=== PATIENT | female | born 1940 | race Caucasian/White ===

== ENCOUNTER 2016-06-30 15:59 | Inpatient (IN) | payer MEDICARE, MEDICAID ==
[~2016-06-30] VITALS: Ht 165.1 cm; Wt 71.2 kg
[~2016-06-30 15:59] MED LIST: IPRA3AMP IH; METH5TAB70 PO; SERT25TA5 PO
[2016-06-30] MEDS ORDERED: ALBUTEROL FS 2.5 MG/3 ML VIAL.NEB ONE ×2 (16:18→19:27)
[2016-06-30] MEDS ORDERED: IPRATROPIUM NEB FS 0.5 MG/2.5 ML AMPUL.NEB ONE ×2 (16:18→19:27)
[2016-06-30] MEDS ORDERED: methylPREDNISolone SOD SUCC 125 MG/2ML VIAL ONE (16:30)
[2016-06-30] MEDS ORDERED: ALBUTEROL FS 2.5 MG/3 ML VIAL.NEB NEB ONE ×2 (16:30→20:00)
[2016-06-30] MEDS ORDERED: IPRATROPIUM NEB FS 0.5 MG/2.5 ML AMPUL.NEB NEB ONE ×2 (16:30→20:00)
[2016-06-30] MEDS ORDERED: methylPREDNISolone SOD SUCC 125 MG/2ML VIAL IV ONE (16:30)
[2016-06-30 16:40] LABS: BASOPHILS # (AUTO) 0.2 /CMM (0.0-0.2); DIFF TOTAL % 100 %; EOSINOPHILS % (AUTO) 0.2 % (0.0-6.0); HEMATOCRIT 32 % (33-45); HEMOGLOBIN 9.9 g/dL (11.5-14.8); LYMPHOCYTES # (AUTO) 1.5 /CMM (0.8-4.8); LYMPHOCYTES % (AUTO) 12.5 % (20.0-44.0); MEAN CORPUSCULAR HEMOGLOBIN 21 PG (26.0-33.0); MEAN CORPUSCULAR HGB CONC 31 g/dl (31.0-36.0); MEAN CORPUSCULAR VOLUME 68 fL (82-100); MONOCYTES # (AUTO) 0.8 /CMM (0.1-1.30); MONOCYTES % (AUTO) 6.8 % (2.0-12.0); NEUTROPHILS # (AUTO) 9.2 /CMM (1.8-8.9); NEUTROPHILS % (AUTO) 78.5 % (43.0-81.0); PLATELET COUNT (AUTO) 123 /CMM (150-450); RED BLOOD CELL COUNT(AUTO) 4.69 MIL/uL (4.0-5.2); WHITE BLOOD COUNT (AUTO) 11.7 K/uL (4.3-11.0)
[2016-06-30 16:56] LABS: ANION GAP 12 (5-14); CARBON DIOXIDE 27 mmol/L (21-32); CHLORIDE 104 mmol/L (98-107); CREATININE 1.4 mg/dL (0.6-1.3); GLUCOSE 206 mg/dL (74-106); POTASSIUM 5.8 mmol/L (3.5-5.1); SODIUM SERUM 137 mmol/L (136-145); UREA NITROGEN, BLOOD 30 mg/dL (7-18)
[2016-06-30 17:04] LABS: TROPONIN I < 0.017 ng/mL (0.00-0.056)
[2016-06-30 18:09] LABS: ALANINE AMINOTRANSFERASE 14 U/L (12-78); ALBUMIN 3.4 g/dL (3.4-5.0); ASPARTATE AMINOTRANSFERASE 15 U/L (15-37); BILIRUBIN,TOTAL 0.2 mg/dL (0.2-1.0); TOTAL PROTEIN, SERUM 6.9 g/dL (6.4-8.2)
[2016-06-30 18:20] LABS: INDIRECT BILIRUBIN 0.2 mg/dL (0.0-1.1)
[2016-06-30 18:52] LABS: LYMPHOCYTES % (MANUAL) 10 % (16-48)
[2016-06-30 18:54] LABS: HYPOCHROMASIA 1+; PLATELET ESTIMATE DECREASED
[2016-06-30 18:55] LABS: POIKILOCYTOSIS 1+
[2016-06-30] MEDS ORDERED: IV NS 0.9% 1,000 ML ONE (19:17)
[2016-06-30] MEDS ORDERED: IV SET PRIMARY 1 EA INFUS.SET MC ONE (19:17)
[2016-06-30] MEDS ORDERED: IV NS 0.9% 1,000 ML IV ONE (19:40)
[2016-06-30 20:00] VITALS: BP 153/73
[2016-06-30] MEDS ORDERED: ENOXAPARIN SODIUM 40 MG/0.4 ML DISP.SYRIN SQ ONE (21:30)
[2016-06-30] MEDS ORDERED: MORPHINE SULFATE INJ 2 MG/ML DISP.SYRIN IV PRN (21:30)
[2016-06-30] MEDS ORDERED: ENOXAPARIN SODIUM 40 MG/0.4 ML DISP.SYRIN SQ SCH (21:30)
[2016-06-30] MEDS ORDERED: ONDANSETRON HCL/PF 4 MG/2 ML VIAL IVP PRN (21:30)
[2016-06-30] MEDS ORDERED: ACETAMINOPHEN 325 MG TABLET PO PRN (21:30)
[2016-06-30] MEDS ORDERED: SECONDARY IV SET 1 EA INFUS.SET MC ONE (21:31)
[2016-06-30] MEDS ORDERED: IV D5W 50 ML IV ONE (21:31)
[2016-06-30] MEDS ORDERED: CEFTRIAXONE 1 G VIAL ONE (21:31)
[2016-06-30] MEDS ORDERED: MONTELUKAST SODIUM (10MG) 10 MG TABLET ONE (21:31)
[2016-06-30] MEDS: BLOOD SUGAR DIAGNOSTIC 1 EACH STRIP IN SCH (21:42)
[2016-06-30] MEDS: CEFTRIAXONE 1 G in IV D5W 50 ML IV SCH (21:43)
[2016-06-30] MEDS ORDERED: IV SET PRIMARY PUMP SET 1 EA INFUS.SET MC ONE (21:44)
[2016-06-30] MEDS: METHIMAZOLE (5MG) 5 MG TABLET PO SCH (21:53)
[2016-06-30] MEDS: MONTELUKAST SODIUM (10MG) 10 MG TABLET PO SCH (21:53)
[2016-06-30] MEDS: INSULIN REGULAR, HUMAN 100 UNIT/ML 3 ML VIAL SQ PRN (21:55)
[2016-06-30] MEDS ORDERED: INSULIN REGULAR, HUMAN 100 UNIT/ML 10 ML VIAL ONE (22:21)
[2016-07-01] VITALS: BP 147/60
[2016-07-01] MEDS ORDERED: IPRATROPIUM NEB FS 0.5 MG/2.5 ML AMPUL.NEB ONE (03:27)
[2016-07-01] MEDS ORDERED: ALBUTEROL FS 2.5 MG/0.5 ML VIAL.NEB ONE (03:27)
[2016-07-01] MEDS ORDERED: ALBUTEROL FS 2.5 MG/0.5 ML VIAL.NEB NEB PRN (03:30)
[2016-07-01] MEDS ORDERED: IPRATROPIUM NEB FS 0.5 MG/2.5 ML AMPUL.NEB NEB PRN (03:30)
[2016-07-01] MEDS ORDERED: INSU100V10 SQ (04:29)
[2016-07-01] MEDS ORDERED: BISA10SU8 RC (04:29)
[2016-07-01] MEDS ORDERED: CARV12.52 PO (04:29)
[2016-07-01] MEDS ORDERED: FERR-58 PO (04:29)
[2016-07-01] MEDS ORDERED: MAGN400O6 PO (04:29)
[2016-07-01] MEDS ORDERED: NA P133E RC (04:29)
[2016-07-01] MEDS ORDERED: VALS80TA26 PO (04:29)
[2016-07-01] MEDS ORDERED: RAMI10CA PO (04:29)
[2016-07-01] MEDS ORDERED: GABA-532 PO (04:29)
[2016-07-01] MEDS ORDERED: MAGN400O4 PO (04:29)
[2016-07-01] MEDS ORDERED: CRAN425C PO (04:29)
[2016-07-01] MEDS ORDERED: ACET-868 PO (04:29)
[2016-07-01] MEDS ORDERED: DOCU-25 PO (04:29)
[2016-07-01] MEDS: INSULIN REGULAR, HUMAN 100 UNIT/ML 3 ML VIAL SQ PRN ×3 (06:37→21:52)
[2016-07-01 07:19] LABS: DIFF TOTAL % 100 %; HEMATOCRIT 30 % (33-45); HEMOGLOBIN 9.1 g/dL (11.5-14.8); LYMPHOCYTES % (AUTO) 10.3 % (20.0-44.0); MEAN CORPUSCULAR HEMOGLOBIN 21 PG (26.0-33.0); MEAN CORPUSCULAR HGB CONC 31 g/dl (31.0-36.0); MEAN CORPUSCULAR VOLUME 69 fL (82-100); MONOCYTES # (AUTO) 0.2 /CMM (0.1-1.30); MONOCYTES % (AUTO) 1.8 % (2.0-12.0); NEUTROPHILS # (AUTO) 8.7 /CMM (1.8-8.9); NEUTROPHILS % (AUTO) 87.9 % (43.0-81.0); PLATELET COUNT (AUTO) 127 /CMM (150-450); RED BLOOD CELL COUNT(AUTO) 4.34 MIL/uL (4.0-5.2); RETICULOCYTE COUNT 0.3 % (0.6-2.5); WHITE BLOOD COUNT (AUTO) 9.9 K/uL (4.3-11.0)
[2016-07-01 07:38] LABS: THYROID STIMULATING HORMONE 0.408 uIU/mL (0.358-3.74)
[2016-07-01] MEDS: ALBUTEROL FS 2.5 MG/0.5 ML VIAL.NEB NEB SCH ×4 (07:42→20:06)
[2016-07-01] MEDS: IPRATROPIUM NEB FS 0.5 MG/2.5 ML AMPUL.NEB NEB SCH ×4 (07:42→20:05)
[2016-07-01 07:45] LABS: BILIRUBIN,TOTAL 0.1 mg/dL (0.2-1.0); CALCIUM, SERUM 7.8 mg/dL (8.5-10.1); CREATININE 1.4 mg/dL (0.6-1.3); PHOSPHORUS 4.2 mg/dL (2.5-4.9); POTASSIUM 5.5 mmol/L (3.5-5.1); TOTAL PROTEIN, SERUM 6.4 g/dL (6.4-8.2)
[2016-07-01 08:00] VITALS: BP 130/53
[2016-07-01] MEDS: SERTRALINE HCL 25 MG TABLET PO SCH (08:09)
[2016-07-01] MEDS: predniSONE 20 MG TABLET PO SCH (08:09)
[2016-07-01] MEDS: BLOOD SUGAR DIAGNOSTIC 1 EACH STRIP IN SCH ×4 (08:09→21:46)
[2016-07-01] MEDS: PANTOPRAZOLE 40 MG TABLET.DR PO SCH (08:09)
[2016-07-01] MEDS: FLUTICASONE/SALMETEROL DISKUS IH SCH ×2 (09:58→16:31)
[2016-07-01 10:15] LABS: BAND % (MANUAL) 3 % (0.0-5.0); LYMPHOCYTES % (MANUAL) 5 % (16-48)
[2016-07-01 10:16] LABS: HYPOCHROMASIA 2+; PLATELET ESTIMATE DECREASED
[2016-07-01 10:17] LABS: ANISOCYTOSIS 1+; MICROCYTOSIS 1+; POIKILOCYTOSIS 1+
[2016-07-01 12:00] VITALS: BP 139/61
[2016-07-01] MEDS: IV NS 0.9% 1,000 ML IV PRN (13:44)
[2016-07-01 16:00] VITALS: BP 129/53
[2016-07-01 20:32] VITALS: BP 141/57
[2016-07-01] MEDS: ENOXAPARIN SODIUM 30 MG/0.3 ML DISP.SYRIN SQ SCH (21:00)
[2016-07-01] MEDS ORDERED: METHIMAZOLE (5MG) 5 MG TABLET PO SCH (21:30)
[2016-07-01] MEDS: CEFTRIAXONE 1 G in IV D5W 50 ML IV SCH (21:36)
[2016-07-01] MEDS: MONTELUKAST SODIUM (10MG) 10 MG TABLET PO SCH (21:46)
[2016-07-01 22:00] VITALS: BP 141/57
[2016-07-02 00:42] VITALS: BP 145/70
[2016-07-02 04:42] VITALS: BP 157/70
[2016-07-02] MEDS: PANTOPRAZOLE 40 MG TABLET.DR PO SCH (06:55)
[2016-07-02] MEDS: BLOOD SUGAR DIAGNOSTIC 1 EACH STRIP IN SCH ×4 (06:55→21:15)
[2016-07-02 06:57] VITALS: BP 161/73
[2016-07-02] MEDS: ALBUTEROL FS 2.5 MG/0.5 ML VIAL.NEB NEB SCH ×4 (07:12→19:14)
[2016-07-02] MEDS: IPRATROPIUM NEB FS 0.5 MG/2.5 ML AMPUL.NEB NEB SCH ×4 (07:12→19:14)
[2016-07-02 07:42] LABS: CREATININE 1.5 mg/dL (0.6-1.3); PHOSPHORUS 3.6 mg/dL (2.5-4.9); POTASSIUM 4.8 mmol/L (3.5-5.1)
[2016-07-02 07:50] LABS: DIFF TOTAL % 100 %; EOSINOPHILS % (AUTO) 0.1 % (0.0-6.0); HEMATOCRIT 30 % (33-45); HEMOGLOBIN 9.2 g/dL (11.5-14.8); LYMPHOCYTES # (AUTO) 1.6 /CMM (0.8-4.8); LYMPHOCYTES % (AUTO) 12.8 % (20.0-44.0); MEAN CORPUSCULAR HEMOGLOBIN 21 PG (26.0-33.0); MEAN CORPUSCULAR HGB CONC 31 g/dl (31.0-36.0); MEAN CORPUSCULAR VOLUME 70 fL (82-100); MONOCYTES # (AUTO) 0.7 /CMM (0.1-1.30); NEUTROPHILS # (AUTO) 9.9 /CMM (1.8-8.9); NEUTROPHILS % (AUTO) 81.1 % (43.0-81.0); PLATELET COUNT (AUTO) 161 /CMM (150-450); RED BLOOD CELL COUNT(AUTO) 4.31 MIL/uL (4.0-5.2); WHITE BLOOD COUNT (AUTO) 12.2 K/uL (4.3-11.0)
[2016-07-02 08:00] VITALS: BP 161/73
[2016-07-02] MEDS: SERTRALINE HCL 25 MG TABLET PO SCH (08:33)
[2016-07-02] MEDS: RAMIPRIL 5 MG CAPSULE PO SCH (08:34)
[2016-07-02] MEDS: CARVEDILOL 12.5 MG TABLET PO SCH ×2 (08:34→16:44)
[2016-07-02] MEDS: DOCUSATE SODIUM 100 MG CAPSULE PO SCH (08:35)
[2016-07-02] MEDS: BISACODYL SUPP (10 MG) 10 MG/SUPP.RECT SUPP.RECT RC SCH ×2 (08:35→09:00)
[2016-07-02] MEDS: predniSONE 20 MG TABLET PO SCH (08:35)
[2016-07-02] MEDS: VALSARTAN 80 MG TABLET PO SCH (08:38)
[2016-07-02] MEDS: FLUTICASONE/SALMETEROL DISKUS IH SCH ×2 (09:00→16:46)
[2016-07-02 15:15] LABS: LYMPHOCYTES % (MANUAL) 17 % (16-48)
[2016-07-02 15:16] LABS: HYPOCHROMASIA 1+; PLATELET ESTIMATE ADEQUATE
[2016-07-02 16:00] VITALS: BP 161/64
[2016-07-02] MEDS: INSULIN REGULAR, HUMAN 100 UNIT/ML 3 ML VIAL SQ PRN ×2 (16:54→21:06)
[2016-07-02 20:00] VITALS: BP 151/58
[2016-07-02] MEDS: ENOXAPARIN SODIUM 30 MG/0.3 ML DISP.SYRIN SQ SCH (20:59)
[2016-07-02] MEDS: CEFTRIAXONE 1 G in IV D5W 50 ML IV SCH (21:01)
[2016-07-02] MEDS: MONTELUKAST SODIUM (10MG) 10 MG TABLET PO SCH (21:01)
[2016-07-02] MEDS: GABAPENTIN 100 MG CAPSULE PO SCH (21:01)
[2016-07-02] MEDS: METHIMAZOLE (5MG) 5 MG TABLET PO SCH (21:01)
[2016-07-02] MEDS: INSULIN DETEMIR 100 UNIT/ML CARTRIDGE SQ SCH (21:05)
[2016-07-02] MEDS: IV NS 0.9% 1,000 ML IV PRN (23:29)
[2016-07-03] MEDS: ZOLPIDEM TARTRATE 5 MG TABLET PO PRN (00:50)
[2016-07-03 04:55] VITALS: BP 126/73
[2016-07-03] MEDS: DEXTROSE 50%-WATER 50 ML DISP.SYRIN IV PRN (05:49)
[2016-07-03] MEDS: BLOOD SUGAR DIAGNOSTIC 1 EACH STRIP IN SCH ×4 (06:25→21:06)
[2016-07-03 07:20] LABS: BASOPHILS % (AUTO) 0.3 % (0.0-2.0); DIFF TOTAL % 100 %; EOSINOPHILS % (AUTO) 0.1 % (0.0-6.0); HEMATOCRIT 30 % (33-45); HEMOGLOBIN 9.1 g/dL (11.5-14.8); LYMPHOCYTES # (AUTO) 1.9 /CMM (0.8-4.8); LYMPHOCYTES % (AUTO) 23.4 % (20.0-44.0); MEAN CORPUSCULAR HEMOGLOBIN 21 PG (26.0-33.0); MEAN CORPUSCULAR HGB CONC 30 g/dl (31.0-36.0); MEAN CORPUSCULAR VOLUME 69 fL (82-100); MONOCYTES # (AUTO) 0.4 /CMM (0.1-1.30); MONOCYTES % (AUTO) 5.7 % (2.0-12.0); NEUTROPHILS # (AUTO) 5.6 /CMM (1.8-8.9); NEUTROPHILS % (AUTO) 70.5 % (43.0-81.0); PLATELET COUNT (AUTO) 132 /CMM (150-450); RED BLOOD CELL COUNT(AUTO) 4.31 MIL/uL (4.0-5.2); WHITE BLOOD COUNT (AUTO) 7.9 K/uL (4.3-11.0)
[2016-07-03 07:47] LABS: CALCIUM, SERUM 8.1 mg/dL (8.5-10.1); CREATININE 1.4 mg/dL (0.6-1.3); PHOSPHORUS 3.3 mg/dL (2.5-4.9); POTASSIUM 5.6 mmol/L (3.5-5.1)
[2016-07-03] MEDS: ALBUTEROL FS 2.5 MG/0.5 ML VIAL.NEB NEB SCH ×4 (07:49→20:02)
[2016-07-03] MEDS: IPRATROPIUM NEB FS 0.5 MG/2.5 ML AMPUL.NEB NEB SCH ×4 (07:49→20:01)
[2016-07-03 08:00] VITALS: BP 158/59
[2016-07-03] MEDS: RAMIPRIL 5 MG CAPSULE PO SCH ×2 (09:00→10:21)
[2016-07-03] MEDS: predniSONE 20 MG TABLET PO SCH (10:21)
[2016-07-03] MEDS: SERTRALINE HCL 25 MG TABLET PO SCH (10:21)
[2016-07-03] MEDS: BISACODYL SUPP (10 MG) 10 MG/SUPP.RECT SUPP.RECT RC SCH (10:21)
[2016-07-03] MEDS: DOCUSATE SODIUM 100 MG CAPSULE PO SCH (10:22)
[2016-07-03] MEDS: VALSARTAN 80 MG TABLET PO SCH (10:22)
[2016-07-03] MEDS: CARVEDILOL 12.5 MG TABLET PO SCH ×2 (10:23→16:59)
[2016-07-03] MEDS: PANTOPRAZOLE 40 MG TABLET.DR PO SCH (10:39)
[2016-07-03] MEDS: FLUTICASONE/SALMETEROL DISKUS IH SCH ×2 (10:39→16:59)
[2016-07-03] MEDS ORDERED: FUROSEMIDE 20 MG/2 ML VIAL IV ONE (11:30)
[2016-07-03] MEDS: hydrALAZINE HCL 50 MG TABLET PO SCH ×2 (12:53→17:00)
[2016-07-03] MEDS: NITROGLYCERIN 30 GM TUBE TP SCH ×2 (12:54→21:09)
[2016-07-03 15:50] VITALS: BP 154/57
[2016-07-03 16:00] VITALS: BP 152/57
[2016-07-03] MEDS: INSULIN REGULAR, HUMAN 100 UNIT/ML 3 ML VIAL SQ PRN ×2 (17:01→21:08)
[2016-07-03] MEDS ORDERED: SODIUM POLYSTYRENE SULFONATE 15 G/60 ML BOTTLE PO ONE (17:30)
[2016-07-03] MEDS: ENOXAPARIN SODIUM 30 MG/0.3 ML DISP.SYRIN SQ SCH (21:00)
[2016-07-03] MEDS: CEFTRIAXONE 1 G in IV D5W 50 ML IV SCH (21:06)
[2016-07-03] MEDS: GABAPENTIN 100 MG CAPSULE PO SCH (21:06)
[2016-07-03] MEDS: MONTELUKAST SODIUM (10MG) 10 MG TABLET PO SCH (21:07)
[2016-07-03] MEDS: METHIMAZOLE (5MG) 5 MG TABLET PO SCH (21:07)
[2016-07-03] MEDS: INSULIN DETEMIR 100 UNIT/ML CARTRIDGE SQ SCH (21:08)
[2016-07-04] MEDS: ZOLPIDEM TARTRATE 5 MG TABLET PO PRN (00:51)
[2016-07-04] MEDS: IV NS 0.9% 1,000 ML IV PRN ×2 (01:52→14:27)
[2016-07-04 07:51] LABS: BASOPHILS % (AUTO) 0.1 % (0.0-2.0); DIFF TOTAL % 100 %; EOSINOPHILS % (AUTO) 0.2 % (0.0-6.0); HEMATOCRIT 29 % (33-45); HEMOGLOBIN 8.8 g/dL (11.5-14.8); LYMPHOCYTES # (AUTO) 2.1 /CMM (0.8-4.8); LYMPHOCYTES % (AUTO) 26.9 % (20.0-44.0); MEAN CORPUSCULAR HEMOGLOBIN 21 PG (26.0-33.0); MEAN CORPUSCULAR HGB CONC 30 g/dl (31.0-36.0); MEAN CORPUSCULAR VOLUME 69 fL (82-100); MONOCYTES # (AUTO) 0.6 /CMM (0.1-1.30); MONOCYTES % (AUTO) 7.5 % (2.0-12.0); NEUTROPHILS % (AUTO) 65.3 % (43.0-81.0); PLATELET COUNT (AUTO) 173 /CMM (150-450); RED BLOOD CELL COUNT(AUTO) 4.22 MIL/uL (4.0-5.2); WHITE BLOOD COUNT (AUTO) 7.7 K/uL (4.3-11.0)
[2016-07-04 08:00] VITALS: BP 158/63
[2016-07-04] MEDS: ALBUTEROL FS 2.5 MG/0.5 ML VIAL.NEB NEB SCH ×4 (08:20→20:50)
[2016-07-04] MEDS: IPRATROPIUM NEB FS 0.5 MG/2.5 ML AMPUL.NEB NEB SCH ×4 (08:21→20:50)
[2016-07-04 08:25] LABS: BAND % (MANUAL) 2 % (0.0-5.0); LYMPHOCYTES % (MANUAL) 32 % (16-48)
[2016-07-04 08:26] LABS: ANISOCYTOSIS 3+; HYPOCHROMASIA 2+; MICROCYTOSIS 3+; PLATELET ESTIMATE ADEQUATE
[2016-07-04 08:27] LABS: OVALOCYTES 1+
[2016-07-04 09:08] LABS: ALBUMIN 2.8 g/dL (3.4-5.0); BILIRUBIN,TOTAL 0.1 mg/dL (0.2-1.0); CREATININE 1.3 mg/dL (0.6-1.3); PHOSPHORUS 3.4 mg/dL (2.5-4.9)
[2016-07-04] MEDS: SERTRALINE HCL 25 MG TABLET PO SCH (09:14)
[2016-07-04] MEDS: BLOOD SUGAR DIAGNOSTIC 1 EACH STRIP IN SCH ×4 (09:14→22:17)
[2016-07-04] MEDS: predniSONE 20 MG TABLET PO SCH (09:15)
[2016-07-04] MEDS: DOCUSATE SODIUM 100 MG CAPSULE PO SCH (09:15)
[2016-07-04] MEDS: BISACODYL SUPP (10 MG) 10 MG/SUPP.RECT SUPP.RECT RC SCH (09:15)
[2016-07-04] MEDS: CARVEDILOL 12.5 MG TABLET PO SCH ×2 (09:15→17:45)
[2016-07-04] MEDS: hydrALAZINE HCL 50 MG TABLET PO SCH ×3 (09:15→17:44)
[2016-07-04] MEDS: FLUTICASONE/SALMETEROL DISKUS IH SCH ×2 (09:17→17:47)
[2016-07-04] MEDS: PANTOPRAZOLE 40 MG TABLET.DR PO SCH (09:19)
[2016-07-04] MEDS: NITROGLYCERIN 30 GM TUBE TP SCH ×2 (09:19→21:28)
[2016-07-04] MEDS: Magnesium 1GM/D5W 100ML PREMIX 100 ML IV SCH ×2 (14:22→15:44)
[2016-07-04 16:00] VITALS: BP 158/71
[2016-07-04 17:00] VITALS: BP 158/71
[2016-07-04] MEDS ORDERED: ENOXAPARIN SODIUM 30 MG/0.3 ML DISP.SYRIN SQ SCH (17:00)
[2016-07-04] MEDS: INSULIN REGULAR, HUMAN 100 UNIT/ML 3 ML VIAL SQ PRN ×2 (17:43→22:22)
[2016-07-04] MEDS: FERROUS SULFATE (325 MG) 325 MG/TAB TABLET PO SCH (17:50)
[2016-07-04 20:00] VITALS: BP 143/65
[2016-07-04] MEDS: METHIMAZOLE (5MG) 5 MG TABLET PO SCH (21:31)
[2016-07-04] MEDS: MONTELUKAST SODIUM (10MG) 10 MG TABLET PO SCH (21:32)
[2016-07-04] MEDS: GABAPENTIN 100 MG CAPSULE PO SCH (21:33)
[2016-07-04] MEDS: CEFTRIAXONE 1 G in IV D5W 50 ML IV SCH (22:03)
[2016-07-04] MEDS: INSULIN DETEMIR 100 UNIT/ML CARTRIDGE SQ SCH (22:28)
[2016-07-05] MEDS: IV NS 0.9% 1,000 ML IV PRN (03:13)
[2016-07-05] MEDS: DEXTROSE 50%-WATER 50 ML DISP.SYRIN IV PRN (05:47)
[2016-07-05] MEDS: BLOOD SUGAR DIAGNOSTIC 1 EACH STRIP IN SCH ×2 (05:56→13:27)
[2016-07-05 08:00] VITALS: BP 146/56
[2016-07-05] MEDS: IPRATROPIUM NEB FS 0.5 MG/2.5 ML AMPUL.NEB NEB SCH ×3 (08:16→15:18)
[2016-07-05] MEDS: ALBUTEROL FS 2.5 MG/0.5 ML VIAL.NEB NEB SCH ×3 (08:16→15:18)
[2016-07-05] MEDS: hydrALAZINE HCL 50 MG TABLET PO SCH ×2 (09:43→13:34)
[2016-07-05] MEDS: DOCUSATE SODIUM 100 MG CAPSULE PO SCH (09:43)
[2016-07-05] MEDS: FERROUS SULFATE (325 MG) 325 MG/TAB TABLET PO SCH (09:43)
[2016-07-05] MEDS: PANTOPRAZOLE 40 MG TABLET.DR PO SCH (09:43)
[2016-07-05] MEDS: CARVEDILOL 12.5 MG TABLET PO SCH (09:43)
[2016-07-05] MEDS: predniSONE 20 MG TABLET PO SCH (09:44)
[2016-07-05] MEDS: SERTRALINE HCL 25 MG TABLET PO SCH (09:44)
[2016-07-05] MEDS: BISACODYL SUPP (10 MG) 10 MG/SUPP.RECT SUPP.RECT RC SCH (09:44)
[2016-07-05] MEDS: NITROGLYCERIN 30 GM TUBE TP SCH (09:44)
[2016-07-05] MEDS: FLUTICASONE/SALMETEROL DISKUS IH SCH (13:28)
[2016-07-05 13:34] VITALS: BP 166/63
== END 2016-07-05 16:00 | DRG 202 ==
LOC: ER 16:02 → TELE 19:59 → MED 07-02 09:43
PROVIDERS: ADMIT Nurse Practitioner Acute Care; ATTEND Nurse Practitioner Acute Care
PROC: 05H533Z Insertion of Infusion Device into Right Subclavian Vein, Percutaneous Approach (ICD-10-PCS; principal; 2016-07-03)
DX: J45.901 Unspecified asthma with (acute) exacerbation (principal); J18.9 Pneumonia, unspecified organism; J44.1 Chronic obstructive pulmonary disease with (acute) exacerbation; N17.9 Acute kidney failure, unspecified; I13.0 Hypertensive heart and chronic kidney disease with heart failure and stage 1 through stage 4 chronic kidney disease, or unspecified chronic kidney disease; J98.11 Atelectasis; E11.22 Type 2 diabetes mellitus with diabetic chronic kidney disease; D63.8 Anemia in other chronic diseases classified elsewhere; E11.65 Type 2 diabetes mellitus with hyperglycemia; I12.9 Hypertensive chronic kidney disease with stage 1 through stage 4 chronic kidney disease, or unspecified chronic kidney disease; N18.9 Chronic kidney disease, unspecified; F03.90 Unspecified dementia, unspecified severity, without behavioral disturbance, psychotic disturbance, mood disturbance, and anxiety; G62.9 Polyneuropathy, unspecified; E03.9 Hypothyroidism, unspecified; F32.9 Major depressive disorder, single episode, unspecified; E87.5 Hyperkalemia; D69.6 Thrombocytopenia, unspecified; I35.9 Nonrheumatic aortic valve disorder, unspecified; K59.09 Other constipation; E78.5 Hyperlipidemia, unspecified; D50.9 Iron deficiency anemia, unspecified; E83.42 Hypomagnesemia; E05.90 Thyrotoxicosis, unspecified without thyrotoxic crisis or storm; E11.21 Type 2 diabetes mellitus with diabetic nephropathy; E11.40 Type 2 diabetes mellitus with diabetic neuropathy, unspecified; I25.10 Atherosclerotic heart disease of native coronary artery without angina pectoris; Z79.4 Long term (current) use of insulin; I50.9 Heart failure, unspecified
CPT/HCPCS: 36415; 71010-TC; 80048-TC; 80053-TC; 80061-TC; 80076-TC; 82962-TC; 83540-TC; 83735-TC; 83880; 84100-TC; 84443-TC; 84484-TC; 85025-TC; 85045-TC; 87081-TC; 94799-TC; A4606; J0696; J1650; J1815; J1940; J2270; J2930; J3475; J7030; J7060; Z7610

== ENCOUNTER 2016-08-20 09:02 | Inpatient (IN) | payer MEDICARE, MEDICAID ==
[~2016-08-20] VITALS: Ht 167.6 cm; Wt 74.4 kg
[2016-08-20] VITALS (18 sets, daily range): BP systolic 74–127; BP diastolic 35–64
[~2016-08-20 09:02] MED LIST changes: +ACET-868 PO; +BISA10SU8 RC; +CARV12.52 PO; +CRAN425C PO; +DOCU-25 PO; +FERR-58 PO; +GABA-532 PO; +INSU100V10 SQ; +MAGN400O4 PO; +MAGN400O6 PO; +NA P133E RC; +RAMI10CA PO; +VALS80TA26 PO
[2016-08-20] MEDS ORDERED: ACETAMINOPHEN 650 MG/SUPP.RECT RC ONE ×2 (09:04→09:30)
[2016-08-20] MEDS ORDERED: IV SET PRIMARY 1 EA INFUS.SET MC ONE (09:18)
[2016-08-20] MEDS ORDERED: IV NS 0.9% 500 ML IV ONE (09:18)
[2016-08-20] MEDS ORDERED: IV NS 0.9% 500 ML BAG IV ONE (09:30)
[2016-08-20] MEDS ORDERED: ALBUTEROL FS 2.5 MG/3 ML VIAL.NEB ONE (09:41)
[2016-08-20] MEDS ORDERED: IPRATROPIUM NEB FS 0.5 MG/2.5 ML AMPUL.NEB ONE (09:41)
[2016-08-20] MEDS ORDERED: PIPERACILLIN /TAZOBACTAM 3.375 G in IV D5W 50 ML IV ONE (10:00)
[2016-08-20] MEDS ORDERED: ALBUTEROL FS 2.5 MG/3 ML VIAL.NEB NEB ONE (10:00)
[2016-08-20] MEDS ORDERED: IPRATROPIUM NEB FS 0.5 MG/2.5 ML AMPUL.NEB NEB ONE (10:00)
[2016-08-20] MEDS ORDERED: LEVOFLOXACIN 750 MG /D5W 150ML 150 ML IV ONE ×2 (10:00→10:15)
[2016-08-20 10:05] LABS: DIFF TOTAL % 100 %; EOSINOPHILS % (AUTO) 0.1 % (0.0-6.0); HEMATOCRIT 30 % (33-45); HEMOGLOBIN 8.6 g/dL (11.5-14.8); LYMPHOCYTES # (AUTO) 1.3 /CMM (0.8-4.8); LYMPHOCYTES % (AUTO) 10.5 % (20.0-44.0); MEAN CORPUSCULAR HEMOGLOBIN 20 PG (26.0-33.0); MEAN CORPUSCULAR HGB CONC 29 g/dl (31.0-36.0); MEAN CORPUSCULAR VOLUME 70 fL (82-100); MONOCYTES # (AUTO) 0.6 /CMM (0.1-1.30); MONOCYTES % (AUTO) 5.2 % (2.0-12.0); NEUTROPHILS # (AUTO) 10.4 /CMM (1.8-8.9); NEUTROPHILS % (AUTO) 84.2 % (43.0-81.0); PLATELET COUNT (AUTO) 124 /CMM (150-450); RED BLOOD CELL COUNT(AUTO) 4.23 MIL/uL (4.0-5.2); WHITE BLOOD COUNT (AUTO) 12.4 K/uL (4.3-11.0)
[2016-08-20] MEDS ORDERED: GABA-532 PO (10:09)
[2016-08-20] MEDS ORDERED: CLON0.1T PO (10:09)
[2016-08-20] MEDS ORDERED: MONT10TA22 PO (10:09)
[2016-08-20] MEDS ORDERED: FLUT1DIS3 INH (10:09)
[2016-08-20] MEDS ORDERED: MULT-213 PO (10:09)
[2016-08-20] MEDS ORDERED: OMEP20CA10 PO (10:09)
[2016-08-20] MEDS ORDERED: AMLO5TAB4 PO (10:09)
[2016-08-20] MEDS ORDERED: AMIN30LI2 PO (10:09)
[2016-08-20] MEDS ORDERED: IV SET PRIMARY PUMP SET 1 EA INFUS.SET MC ONE ×2 (10:15→14:22)
[2016-08-20 10:20] LABS: BAND % (MANUAL) 1 % (0.0-5.0); LYMPHOCYTES % (MANUAL) 11 % (16-48)
[2016-08-20 10:21] LABS: ANISOCYTOSIS 2+; HYPOCHROMASIA 1+; MICROCYTOSIS 2+; OVALOCYTES FEW; PLATELET ESTIMATE DECREASED
[2016-08-20 10:23] LABS: ANION GAP 10 (5-14); CALCIUM, SERUM 7.8 mg/dL (8.5-10.1); CARBON DIOXIDE 27 mmol/L (21-32); CHLORIDE 111 mmol/L (98-107); CREATININE 2.1 mg/dL (0.6-1.3); GLUCOSE 77 mg/dL (74-106); POTASSIUM 5.8 mmol/L (3.5-5.1); SODIUM SERUM 142 mmol/L (136-145); UREA NITROGEN, BLOOD 58 mg/dL (7-18)
[2016-08-20 10:25] LABS: INR 0.96 (0.87-1.13); PROTHROMBIN TIME 10.1 SECS (9.5-12.7)
[2016-08-20 10:28] LABS: ALANINE AMINOTRANSFERASE 15 U/L (12-78); ALBUMIN 2.8 g/dL (3.4-5.0); ASPARTATE AMINOTRANSFERASE 20 U/L (15-37); BILIRUBIN,DIRECT 0.1 mg/dL (0.0-0.2); BILIRUBIN,TOTAL 0.3 mg/dL (0.2-1.0); INDIRECT BILIRUBIN 0.2 mg/dL (0.0-1.1); TOTAL PROTEIN, SERUM 6.6 g/dL (6.4-8.2)
[2016-08-20 10:31] LABS: KETONES,URINE NEGATIVE (NEGATIVE)
[2016-08-20 10:31] LABS: TROPONIN I < 0.017 ng/mL (0.00-0.056)
[2016-08-20 10:32] LABS: ADD UA MICROSCOPIC YES; LEUKOCYTE ESTERASE ,URINE NEGATIVE (NEGATIVE)
[2016-08-20 10:33] LABS: ADD URINE CULTURE NO; WBC,URINE 0-2 /HPF (0-3)
[2016-08-20 10:34] LABS: LACTIC ACID 0.4 mmol/L (0.4-2.0)
[2016-08-20] MEDS ORDERED: FUROSEMIDE 20 MG/2 ML VIAL ONE (10:44)
[2016-08-20] MEDS ORDERED: methylPREDNISolone SOD SUCC 125 MG/2ML VIAL ONE (10:44)
[2016-08-20] MEDS ORDERED: methylPREDNISolone SOD SUCC 125 MG/2ML VIAL IV ONE (11:00)
[2016-08-20] MEDS ORDERED: FUROSEMIDE 20 MG/2 ML VIAL IV ONE (11:00)
[2016-08-20] MEDS ORDERED: ACETAMINOPHEN 650 MG/SUPP.RECT RC PRN (12:00)
[2016-08-20] MEDS ORDERED: ONDANSETRON HCL/PF 4 MG/2 ML VIAL IVP PRN ×2 (12:00→13:00)
[2016-08-20] MEDS ORDERED: ZOLPIDEM TARTRATE 5 MG TABLET PO PRN ×2 (12:00→22:00)
[2016-08-20] MEDS ORDERED: ENOXAPARIN SODIUM 40 MG/0.4 ML DISP.SYRIN SQ SCH ×2 (12:00→13:00)
[2016-08-20] MEDS ORDERED: MAGNESIUM HYDROXIDE 30 ML UDC PO PRN (13:00)
[2016-08-20] MEDS: METHIMAZOLE (5MG) 5 MG TABLET PO SCH (13:00)
[2016-08-20] MEDS ORDERED: HYDROCODONE/APAP 5/325MG 1 EACH TABLET PO PRN (13:00)
[2016-08-20] MEDS ORDERED: Medication Not On Formulary EA (Cranberry Extract (Cranberry) 425 MG) PO SCH (13:00)
[2016-08-20] MEDS ORDERED: MAG HYDROX/AL HYDROX/SIMETH 30 ML UDC PO PRN (13:00)
[2016-08-20] MEDS ORDERED: GABAPENTIN 100 MG CAPSULE PO SCH (13:00)
[2016-08-20] MEDS ORDERED: Z GUARD REMEDY 2 OZ OINT TP PRN (13:00)
[2016-08-20] MEDS: IV NS 0.9% 1,000 ML IV PRN (14:00)
[2016-08-20] MEDS ORDERED: ACETAMINOPHEN 325 MG TABLET PO PRN (14:00)
[2016-08-20] MEDS ORDERED: FEE PK DOSING 1 MIN EA MC ONE (14:05)
[2016-08-20] MEDS: ENOXAPARIN SODIUM 30 MG/0.3 ML DISP.SYRIN SQ SCH (15:03)
[2016-08-20] MEDS ORDERED: PIPERACILLIN /TAZOBACTAM 2.25 G in IV D5W 50 ML IV SCH (16:00)
[2016-08-20] MEDS ORDERED: SECONDARY IV SET 1 EA INFUS.SET MC ONE (16:12)
[2016-08-20] MEDS: CARVEDILOL 12.5 MG TABLET PO SCH (16:13)
[2016-08-20] MEDS: FERROUS SULFATE (325 MG) 325 MG/TAB TABLET PO SCH (16:13)
[2016-08-20] MEDS: methylPREDNISolone SOD SUCC 40 MG/ML VIAL IV SCH (16:18)
[2016-08-20] MEDS: ALBUTEROL HALF STRENGTH 1.25 MG/3 ML VIAL.NEB NEB SCH ×2 (17:00→23:30)
[2016-08-20] MEDS: PIPERACILLIN /TAZOBACTAM 2.25 G in IV D5W 50 ML IV SCH ×2 (17:13→23:56)
[2016-08-20] MEDS: VANCOMYCIN 0.75 GM in IV D5W 250 ML IV SCH (17:14)
[2016-08-20] MEDS: IPRATROPIUM NEB FS 0.5 MG/2.5 ML AMPUL.NEB NEB SCH ×2 (19:30→23:30)
[2016-08-20] MEDS: GABAPENTIN 100 MG CAPSULE PO SCH (21:37)
[2016-08-20] MEDS: INSULIN DETEMIR 100 UNIT/ML CARTRIDGE SQ SCH (21:51)
[2016-08-21] VITALS (20 sets, daily range): BP systolic 83–142; BP diastolic 34–79
[2016-08-21] MEDS: IPRATROPIUM NEB FS 0.5 MG/2.5 ML AMPUL.NEB NEB SCH ×6 (03:30→23:33)
[2016-08-21] MEDS: ALBUTEROL HALF STRENGTH 1.25 MG/3 ML VIAL.NEB NEB SCH ×6 (03:30→23:33)
[2016-08-21 04:45] LABS: BASOPHILS % (AUTO) 0.1 % (0.0-2.0); DIFF TOTAL % 100 %; HEMATOCRIT 28 % (33-45); HEMOGLOBIN 8.2 g/dL (11.5-14.8); LYMPHOCYTES # (AUTO) 0.7 /CMM (0.8-4.8); LYMPHOCYTES % (AUTO) 10.5 % (20.0-44.0); MEAN CORPUSCULAR HEMOGLOBIN 20 PG (26.0-33.0); MEAN CORPUSCULAR HGB CONC 29 g/dl (31.0-36.0); MEAN CORPUSCULAR VOLUME 70 fL (82-100); MONOCYTES # (AUTO) 0.1 /CMM (0.1-1.30); MONOCYTES % (AUTO) 1.2 % (2.0-12.0); NEUTROPHILS # (AUTO) 5.7 /CMM (1.8-8.9); NEUTROPHILS % (AUTO) 88.2 % (43.0-81.0); PLATELET COUNT (AUTO) 124 /CMM (150-450); RED BLOOD CELL COUNT(AUTO) 4.07 MIL/uL (4.0-5.2); WHITE BLOOD COUNT (AUTO) 6.5 K/uL (4.3-11.0)
[2016-08-21 04:52] LABS: ALBUMIN 2.4 g/dL (3.4-5.0); BILIRUBIN,TOTAL 0.2 mg/dL (0.2-1.0); CREATININE 2.5 mg/dL (0.6-1.3); PHOSPHORUS 6.6 mg/dL (2.5-4.9); POTASSIUM 6.1 mmol/L (3.5-5.1); TOTAL PROTEIN, SERUM 6.1 g/dL (6.4-8.2)
[2016-08-21 05:16] LABS: ANISOCYTOSIS 1+; BAND % (MANUAL) 1 % (0.0-5.0); HYPOCHROMASIA 2+; LYMPHOCYTES % (MANUAL) 8 % (16-48); PLATELET ESTIMATE DECREASED
[2016-08-21] MEDS: PIPERACILLIN /TAZOBACTAM 2.25 G in IV D5W 50 ML IV SCH ×4 (05:47→23:46)
[2016-08-21] MEDS: IV NS 0.9% 1,000 ML IV PRN (06:16)
[2016-08-21] MEDS ORDERED: PANTOPRAZOLE 40 MG TABLET.DR PO SCH (07:30)
[2016-08-21] MEDS: CARVEDILOL 12.5 MG TABLET PO SCH ×2 (09:00→16:27)
[2016-08-21] MEDS ORDERED: RAMIPRIL 5 MG CAPSULE PO SCH (09:00)
[2016-08-21] MEDS: AMLODIPINE BESYLATE 5 MG TABLET PO SCH (09:00)
[2016-08-21] MEDS: PROSOURCE / PROSTAT (PYXIS) 30 ML UDC PO SCH (09:03)
[2016-08-21] MEDS: FERROUS SULFATE (325 MG) 325 MG/TAB TABLET PO SCH ×2 (09:03→16:29)
[2016-08-21] MEDS: BISACODYL SUPP (10 MG) 10 MG/SUPP.RECT SUPP.RECT RC SCH (09:03)
[2016-08-21] MEDS: PANTOPRAZOLE 40 MG VIAL IV SCH (09:03)
[2016-08-21] MEDS: methylPREDNISolone SOD SUCC 40 MG/ML VIAL IV SCH ×3 (09:03→16:29)
[2016-08-21] MEDS: DOCUSATE SODIUM 100 MG CAPSULE PO SCH (09:03)
[2016-08-21 09:04] LABS: ABG BASE EXCESS -2.2 mmol/L; ABG HCO3 27.5 mmol/L; ABG PCO2 80.9 mmHg (35.0-45.0); ABG PO2 76.3 mmHg (75.0-100.0); ABG TOTAL HEMOGLOBIN 9.3 G/dL (12.0-16.0); ALLEN TEST Pass; AaDO2 225.9 mmHg; O2Hb 91.1 % (94.0-97.0)
[2016-08-21 09:04] LABS: ABG BASE EXCESS -3.1 mmol/L; ABG HCO3 25.5 mmol/L; ABG PCO2 69.3 mmHg (35.0-45.0); ABG PH 7.184 (7.350-7.450); ABG PO2 53.7 mmHg (75.0-100.0); ABG TOTAL HEMOGLOBIN 8.4 G/dL (12.0-16.0); ALLEN TEST Pass; AaDO2 151.8 mmHg; O2Hb 83.2 % (94.0-97.0)
[2016-08-21] MEDS: ENOXAPARIN SODIUM 30 MG/0.3 ML DISP.SYRIN SQ SCH (09:05)
[2016-08-21] MEDS ORDERED: DEXTROSE 50%-WATER 50 ML DISP.SYRIN IV PRN (12:30)
[2016-08-21] MEDS: METHIMAZOLE (5MG) 5 MG TABLET PO SCH (13:19)
[2016-08-21] MEDS ORDERED: FUROSEMIDE 40 MG/4 ML VIAL IV ONE (14:00)
[2016-08-21] MEDS ORDERED: SODIUM POLYSTYRENE SULFONATE 15 G/60 ML BOTTLE PO ONE (14:00)
[2016-08-21] MEDS: VANCOMYCIN 0.75 GM in IV D5W 250 ML IV SCH (14:31)
[2016-08-21] MEDS: BLOOD SUGAR DIAGNOSTIC 1 EACH STRIP IN SCH ×2 (17:16→21:53)
[2016-08-21] MEDS: INSULIN REGULAR, HUMAN 100 UNIT/ML 3 ML VIAL SQ PRN ×2 (17:17→21:56)
[2016-08-21 19:31] LABS: CREATININE, URINE 15.8 MG/DL (30.0-125.0)
[2016-08-21] MEDS: HEPARIN SODIUM, PORCINE 5000 UNITS/1 ML VIAL SQ SCH (21:00)
[2016-08-21] MEDS: GABAPENTIN 100 MG CAPSULE PO SCH (21:53)
[2016-08-21] MEDS: INSULIN DETEMIR 100 UNIT/ML CARTRIDGE SQ SCH (21:56)
[2016-08-22] VITALS (7 sets, daily range): BP systolic 101–148; BP diastolic 46–66
[2016-08-22] MEDS ORDERED: GUAIFENESIN/CODEINE 10 ML UDC PO PRN (01:30)
[2016-08-22] MEDS: IPRATROPIUM NEB FS 0.5 MG/2.5 ML AMPUL.NEB NEB SCH ×6 (03:33→23:29)
[2016-08-22] MEDS: ALBUTEROL HALF STRENGTH 1.25 MG/3 ML VIAL.NEB NEB SCH ×6 (03:33→23:29)
[2016-08-22] MEDS: PIPERACILLIN /TAZOBACTAM 2.25 G in IV D5W 50 ML IV SCH ×3 (05:16→17:22)
[2016-08-22] MEDS: BLOOD SUGAR DIAGNOSTIC 1 EACH STRIP IN SCH ×4 (06:32→22:14)
[2016-08-22] MEDS: INSULIN REGULAR, HUMAN 100 UNIT/ML 3 ML VIAL SQ PRN ×4 (06:36→22:10)
[2016-08-22] MEDS: methylPREDNISolone SOD SUCC 40 MG/ML VIAL IV SCH ×3 (08:20→16:35)
[2016-08-22] MEDS: PANTOPRAZOLE 40 MG VIAL IV SCH (08:20)
[2016-08-22] MEDS: PROSOURCE / PROSTAT (PYXIS) 30 ML UDC PO SCH (08:21)
[2016-08-22] MEDS: CARVEDILOL 12.5 MG TABLET PO SCH ×2 (08:21→17:00)
[2016-08-22] MEDS: AMLODIPINE BESYLATE 5 MG TABLET PO SCH (08:21)
[2016-08-22] MEDS: HEPARIN SODIUM, PORCINE 5000 UNITS/1 ML VIAL SQ SCH (08:25)
[2016-08-22] MEDS: FERROUS SULFATE (325 MG) 325 MG/TAB TABLET PO SCH ×2 (08:29→16:35)
[2016-08-22] MEDS: DOCUSATE SODIUM 100 MG CAPSULE PO SCH (08:29)
[2016-08-22] MEDS: BISACODYL SUPP (10 MG) 10 MG/SUPP.RECT SUPP.RECT RC SCH (09:00)
[2016-08-22 10:37] LABS: ABG BASE EXCESS 0.7 mmol/L; ABG HCO3 27.9 mmol/L; ABG PCO2 59.6 mmHg (35.0-45.0); ABG PH 7.288 (7.350-7.450); ABG TOTAL HEMOGLOBIN 8.8 G/dL (12.0-16.0); ALLEN TEST Pass; AaDO2 99.4 mmHg; O2Hb 87.4 % (94.0-97.0)
[2016-08-22 11:40] LABS: CALCIUM, SERUM 7.6 mg/dL (8.5-10.1); CREATININE 2.6 mg/dL (0.6-1.3); PHOSPHORUS 4.5 mg/dL (2.5-4.9); POTASSIUM 4.6 mmol/L (3.5-5.1)
[2016-08-22 11:48] LABS: DIFF TOTAL % 100 %; HEMATOCRIT 27 % (33-45); LYMPHOCYTES # (AUTO) 0.4 /CMM (0.8-4.8); LYMPHOCYTES % (AUTO) 3.9 % (20.0-44.0); MEAN CORPUSCULAR HEMOGLOBIN 20 PG (26.0-33.0); MEAN CORPUSCULAR HGB CONC 29 g/dl (31.0-36.0); MEAN CORPUSCULAR VOLUME 69 fL (82-100); MONOCYTES # (AUTO) 0.4 /CMM (0.1-1.30); MONOCYTES % (AUTO) 3.6 % (2.0-12.0); NEUTROPHILS # (AUTO) 10.6 /CMM (1.8-8.9); NEUTROPHILS % (AUTO) 92.5 % (43.0-81.0); PLATELET COUNT (AUTO) 140 /CMM (150-450); RED BLOOD CELL COUNT(AUTO) 3.93 MIL/uL (4.0-5.2); WHITE BLOOD COUNT (AUTO) 11.5 K/uL (4.3-11.0)
[2016-08-22 12:04] LABS: LYMPHOCYTES % (MANUAL) 5 % (16-48)
[2016-08-22 12:05] LABS: ANISOCYTOSIS 1+; HYPOCHROMASIA 1+; PLATELET ESTIMATE DECREASED
[2016-08-22] MEDS: METHIMAZOLE (5MG) 5 MG TABLET PO SCH (12:27)
[2016-08-22] MEDS: VANCOMYCIN 0.75 GM in IV D5W 250 ML IV SCH (15:01)
[2016-08-22 18:08] LABS: ABG BASE EXCESS 2.3 mmol/L; ABG HCO3 28.9 mmol/L; ABG NOTIFIED BY AS RRT; ABG PCO2 56.4 mmHg (35.0-45.0); ABG PH 7.327 (7.350-7.450); ABG PO2 58.3 mmHg (75.0-100.0); ABG TOTAL HEMOGLOBIN 8.9 G/dL (12.0-16.0); ALLEN TEST Pass; AaDO2 89.3 mmHg
[2016-08-22] MEDS: INSULIN DETEMIR 100 UNIT/ML CARTRIDGE SQ SCH (22:11)
[2016-08-22] MEDS: GABAPENTIN 100 MG CAPSULE PO SCH (22:13)
[2016-08-23] VITALS: BP 142/64
[2016-08-23] MEDS: PIPERACILLIN /TAZOBACTAM 2.25 G in IV D5W 50 ML IV SCH ×4 (00:23→18:12)
[2016-08-23] MEDS: HEPARIN SODIUM, PORCINE 5000 UNITS/1 ML VIAL SQ SCH ×3 (00:25→21:26)
[2016-08-23] MEDS: IPRATROPIUM NEB FS 0.5 MG/2.5 ML AMPUL.NEB NEB SCH ×6 (03:31→23:29)
[2016-08-23] MEDS: ALBUTEROL HALF STRENGTH 1.25 MG/3 ML VIAL.NEB NEB SCH ×6 (03:31→23:29)
[2016-08-23] MEDS: INSULIN REGULAR, HUMAN 100 UNIT/ML 3 ML VIAL SQ PRN ×3 (06:54→18:29)
[2016-08-23] MEDS: BLOOD SUGAR DIAGNOSTIC 1 EACH STRIP IN SCH (07:02)
[2016-08-23 07:58] LABS: CALCIUM, SERUM 7.9 mg/dL (8.5-10.1); CREATININE 1.9 mg/dL (0.6-1.3); POTASSIUM 4.3 mmol/L (3.5-5.1)
[2016-08-23 08:00] VITALS: BP_SYST 120; BP_SYST 127; BP_DIAS 58; BP_DIAS 60
[2016-08-23] MEDS: DOCUSATE SODIUM 100 MG CAPSULE PO SCH (08:35)
[2016-08-23] MEDS: BISACODYL SUPP (10 MG) 10 MG/SUPP.RECT SUPP.RECT RC SCH (08:36)
[2016-08-23] MEDS: CARVEDILOL 12.5 MG TABLET PO SCH ×2 (08:36→18:13)
[2016-08-23] MEDS: FERROUS SULFATE (325 MG) 325 MG/TAB TABLET PO SCH ×2 (08:36→18:12)
[2016-08-23] MEDS: AMLODIPINE BESYLATE 5 MG TABLET PO SCH (08:37)
[2016-08-23] MEDS: methylPREDNISolone SOD SUCC 40 MG/ML VIAL IV SCH ×3 (08:37→18:12)
[2016-08-23] MEDS: PANTOPRAZOLE 40 MG VIAL IV SCH (08:37)
[2016-08-23] MEDS: PROSOURCE / PROSTAT (PYXIS) 30 ML UDC PO SCH (08:37)
[2016-08-23 08:43] LABS: DIFF TOTAL % 100 %; EOSINOPHILS % (AUTO) 0.5 % (0.0-6.0); HEMATOCRIT 28 % (33-45); HEMOGLOBIN 8.2 g/dL (11.5-14.8); LYMPHOCYTES # (AUTO) 0.8 /CMM (0.8-4.8); LYMPHOCYTES % (AUTO) 9.3 % (20.0-44.0); MEAN CORPUSCULAR HEMOGLOBIN 21 PG (26.0-33.0); MEAN CORPUSCULAR HGB CONC 30 g/dl (31.0-36.0); MEAN CORPUSCULAR VOLUME 69 fL (82-100); MONOCYTES # (AUTO) 0.6 /CMM (0.1-1.30); MONOCYTES % (AUTO) 7.2 % (2.0-12.0); NEUTROPHILS # (AUTO) 7.4 /CMM (1.8-8.9); PLATELET COUNT (AUTO) 165 /CMM (150-450); RED BLOOD CELL COUNT(AUTO) 3.98 MIL/uL (4.0-5.2); WHITE BLOOD COUNT (AUTO) 8.9 K/uL (4.3-11.0)
[2016-08-23 10:05] LABS: BAND % (MANUAL) 1 % (0.0-5.0); LYMPHOCYTES % (MANUAL) 14 % (16-48)
[2016-08-23 10:06] LABS: HYPOCHROMASIA 1+; PLATELET ESTIMATE ADEQUATE
[2016-08-23] MEDS ORDERED: DEXTROSE 50%-WATER 50 ML DISP.SYRIN IV PRN (11:30)
[2016-08-23 12:00] VITALS: BP 128/63
[2016-08-23] MEDS ORDERED: BLOOD SUGAR DIAGNOSTIC 1 EACH STRIP VI SCH (12:00)
[2016-08-23] MEDS: METHIMAZOLE (5MG) 5 MG TABLET PO SCH (12:03)
[2016-08-23] MEDS ORDERED: VANCOMYCIN 1 GM in IV D5W 250 ML IV SCH ×2 (14:00→15:00)
[2016-08-23 16:00] VITALS: BP 132/61
[2016-08-23] MEDS: BLOOD SUGAR DIAGNOSTIC 1 EACH STRIP VI SCH ×2 (18:14→21:41)
[2016-08-23 20:00] VITALS: BP 149/75
[2016-08-23] MEDS: GABAPENTIN 100 MG CAPSULE PO SCH (21:25)
[2016-08-23] MEDS: *INSULIN REGULAR(HUMULIN R)HUM 100 UNIT/ML VIAL SQ PRN (21:42)
[2016-08-23] MEDS: INSULIN DETEMIR 100 UNIT/ML CARTRIDGE SQ SCH (21:54)
[2016-08-24] MEDS: ALBUTEROL HALF STRENGTH 1.25 MG/3 ML VIAL.NEB NEB SCH ×4 (03:17→15:46)
[2016-08-24] MEDS: IPRATROPIUM NEB FS 0.5 MG/2.5 ML AMPUL.NEB NEB SCH ×4 (03:17→15:45)
[2016-08-24 04:40] VITALS: BP 162/71
[2016-08-24] MEDS: PIPERACILLIN /TAZOBACTAM 2.25 G in IV D5W 50 ML IV SCH ×4 (05:18→11:34)
[2016-08-24] MEDS: BLOOD SUGAR DIAGNOSTIC 1 EACH STRIP VI SCH ×2 (06:37→11:56)
[2016-08-24] MEDS: *INSULIN REGULAR(HUMULIN R)HUM 100 UNIT/ML VIAL SQ PRN (06:38)
[2016-08-24 07:52] LABS: HEMATOCRIT 29 % (33-45); HEMOGLOBIN 8.7 g/dL (11.5-14.8); MEAN CORPUSCULAR HEMOGLOBIN 20 PG (26.0-33.0); MEAN CORPUSCULAR HGB CONC 30 g/dl (31.0-36.0); MEAN CORPUSCULAR VOLUME 68 fL (82-100); PLATELET COUNT (AUTO) 157 /CMM (150-450); RED BLOOD CELL COUNT(AUTO) 4.27 MIL/uL (4.0-5.2); WHITE BLOOD COUNT (AUTO) 10.7 K/uL (4.3-11.0)
[2016-08-24 08:00] VITALS: BP_SYST 155; BP_DIAS 61; BP_DIAS 63
[2016-08-24 08:02] LABS: CALCIUM, SERUM 8.4 mg/dL (8.5-10.1); CREATININE 1.6 mg/dL (0.6-1.3); POTASSIUM 4.4 mmol/L (3.5-5.1)
[2016-08-24] MEDS: DOCUSATE SODIUM 100 MG CAPSULE PO SCH (08:29)
[2016-08-24] MEDS: PANTOPRAZOLE 40 MG VIAL IV SCH (08:29)
[2016-08-24] MEDS: PROSOURCE / PROSTAT (PYXIS) 30 ML UDC PO SCH (08:29)
[2016-08-24] MEDS: methylPREDNISolone SOD SUCC 40 MG/ML VIAL IV SCH ×2 (08:30→12:57)
[2016-08-24] MEDS: FERROUS SULFATE (325 MG) 325 MG/TAB TABLET PO SCH (08:30)
[2016-08-24] MEDS: AMLODIPINE BESYLATE 5 MG TABLET PO SCH (08:30)
[2016-08-24] MEDS: CARVEDILOL 12.5 MG TABLET PO SCH (08:30)
[2016-08-24] MEDS: HEPARIN SODIUM, PORCINE 5000 UNITS/1 ML VIAL SQ SCH (08:31)
[2016-08-24] MEDS: BISACODYL SUPP (10 MG) 10 MG/SUPP.RECT SUPP.RECT RC SCH (08:31)
[2016-08-24 09:33] LABS: LYMPHOCYTES % (MANUAL) 10 % (16-48); MICROCYTOSIS 1+; PLATELET ESTIMATE DECREASED
[2016-08-24 09:34] LABS: HYPOCHROMASIA 1+; OVALOCYTES 1+
[2016-08-24] MEDS: INSULIN REGULAR, HUMAN 100 UNIT/ML 3 ML VIAL SQ PRN (11:57)
[2016-08-24] MEDS: METHIMAZOLE (5MG) 5 MG TABLET PO SCH (12:57)
[2016-08-24] MEDS ORDERED: LEVO500T15 PO (13:16)
[2016-08-24] MEDS ORDERED: PRED20TA PO (13:24)
[2016-08-24 16:00] VITALS: BP 153/84
[2016-08-26] MEDS ORDERED: METHIMAZOLE (5MG) 5 MG TABLET PO SCH (13:00)
== END 2016-08-24 16:15 | DRG 871 ==
LOC: ER 09:04 → ICU 10:51 → MED 08-21 17:41 → TELE 08-21 20:40 → MED 08-23 08:47
PROVIDERS: ADMIT Internal Medicine; ATTEND Internal Medicine
PROC: 5A09357 Assistance with Respiratory Ventilation, Less than 24 Consecutive Hours, Continuous Positive Airway Pressure (ICD-10-PCS; principal; 2016-08-20)
DX: A41.9 Sepsis, unspecified organism (principal); J15.6 Pneumonia due to other Gram-negative bacteria; I50.33 Acute on chronic diastolic (congestive) heart failure; N17.0 Acute kidney failure with tubular necrosis; J96.22 Acute and chronic respiratory failure with hypercapnia; J96.21 Acute and chronic respiratory failure with hypoxia; G93.40 Encephalopathy, unspecified; J44.1 Chronic obstructive pulmonary disease with (acute) exacerbation; E44.0 Moderate protein-calorie malnutrition; I13.0 Hypertensive heart and chronic kidney disease with heart failure and stage 1 through stage 4 chronic kidney disease, or unspecified chronic kidney disease; J98.11 Atelectasis; N39.0 Urinary tract infection, site not specified; J44.0 Chronic obstructive pulmonary disease with (acute) lower respiratory infection; D63.8 Anemia in other chronic diseases classified elsewhere; E11.22 Type 2 diabetes mellitus with diabetic chronic kidney disease; E87.5 Hyperkalemia; E03.9 Hypothyroidism, unspecified; E87.8 Other disorders of electrolyte and fluid balance, not elsewhere classified; I25.10 Atherosclerotic heart disease of native coronary artery without angina pectoris; N18.9 Chronic kidney disease, unspecified; E88.09 Other disorders of plasma-protein metabolism, not elsewhere classified; F03.90 Unspecified dementia, unspecified severity, without behavioral disturbance, psychotic disturbance, mood disturbance, and anxiety; B96.1 Klebsiella pneumoniae [K. pneumoniae] as the cause of diseases classified elsewhere; E11.40 Type 2 diabetes mellitus with diabetic neuropathy, unspecified; Z68.26 Body mass index [BMI] 26.0-26.9, adult
CPT/HCPCS: 36415; 36600; 71010-TC; 80048-TC; 80053-TC; 80061-TC; 80076-TC; 80202-TC; 81000-TC; 82570-TC; 82803-TC; 82962-TC; 83605-TC; 83735-TC; 84100-TC; 84300-TC; 84484-TC; 85025-TC; 85730-TC; 87040-TC; 87081-TC; 87086-TC; 87186-TC; 87400; 94799-TC; 97001-TC; A4606; C9113; J1644; J1650; J1815; J1940; J1956; J2543; J2920; J2930; J3370; J7030; J7040; J7060; Z7610

== ENCOUNTER 2016-09-09 06:15 | Inpatient (IN) | payer MEDICARE, MEDICAID ==
[2016-09-09] VITALS (19 sets, daily range): BP systolic 88–210; BP diastolic 35–103
[~2016-09-09] VITALS: Ht 157.5 cm; Wt 77.6 kg
[~2016-09-09 06:15] MED LIST changes: +AMIN30LI2 PO; +AMLO5TAB4 PO; +CLON0.1T PO; +FLUT1DIS3 INH; -IPRA3AMP IH; +LEVO500T15 PO; -MAGN400O6 PO; +MONT10TA22 PO; +MULT-213 PO; +OMEP20CA10 PO; +PRED20TA PO; -RAMI10CA PO; -SERT25TA5 PO; -VALS80TA26 PO
[2016-09-09] MEDS ORDERED: ALBUTEROL FS 2.5 MG/3 ML VIAL.NEB ONE (06:22)
[2016-09-09] MEDS ORDERED: IPRATROPIUM NEB FS 0.5 MG/2.5 ML AMPUL.NEB ONE (06:22)
[2016-09-09] MEDS ORDERED: methylPREDNISolone SOD SUCC 125 MG/2ML VIAL ONE (06:25)
[2016-09-09] MEDS ORDERED: IPRATROPIUM NEB FS 0.5 MG/2.5 ML AMPUL.NEB NEB ONE (06:30)
[2016-09-09] MEDS ORDERED: methylPREDNISolone SOD SUCC 125 MG/2ML VIAL IV ONE (06:30)
[2016-09-09] MEDS ORDERED: ALBUTEROL FS 2.5 MG/3 ML VIAL.NEB CONTNEB ONE (06:30)
[2016-09-09 07:14] LABS: BASOPHILS # (AUTO) 0.1 /CMM (0.0-0.2); BASOPHILS % (AUTO) 0.3 % (0.0-2.0); EOSINOPHILS # (AUTO) 0.1 /CMM (0.0-0.7); EOSINOPHILS % (AUTO) 0.4 % (0.0-6.0); HEMATOCRIT 33 % (33-45); HEMOGLOBIN 9.6 g/dL (11.5-14.8); LYMPHOCYTES # (AUTO) 2.2 /CMM (0.8-4.8); LYMPHOCYTES % (AUTO) 15.1 % (20.0-44.0); MEAN CORPUSCULAR HEMOGLOBIN 20 PG (26.0-33.0); MEAN CORPUSCULAR HGB CONC 29 g/dl (31.0-36.0); MEAN CORPUSCULAR VOLUME 70 fL (82-100); MONOCYTES # (AUTO) 0.4 /CMM (0.1-1.30); MONOCYTES % (AUTO) 2.5 % (2.0-12.0); NEUTROPHILS % (AUTO) 81.7 % (43.0-81.0); PLATELET COUNT (AUTO) 205 /CMM (150-450); RED BLOOD CELL COUNT(AUTO) 4.74 MIL/uL (4.0-5.2); WHITE BLOOD COUNT (AUTO) 14.6 K/uL (4.3-11.0)
[2016-09-09 07:25] LABS: CALCIUM, SERUM 8.7 mg/dL (8.5-10.1); CARBON DIOXIDE 32 mmol/L (21-32); CHLORIDE 110 mmol/L (98-107); CREATININE 1.2 mg/dL (0.6-1.3); GLUCOSE 116 mg/dL (74-106); POTASSIUM 4.9 mmol/L (3.5-5.1); SODIUM SERUM 143 mmol/L (136-145); UREA NITROGEN, BLOOD 25 mg/dL (7-18)
[2016-09-09 07:29] LABS: TROPONIN I < 0.017 ng/mL (0.00-0.056)
[2016-09-09 07:35] LABS: ALANINE AMINOTRANSFERASE 17 U/L (12-78); ALBUMIN 2.9 g/dL (3.4-5.0); ALKALINE PHOSPHATASE 69 U/L (46-116); ASPARTATE AMINOTRANSFERASE 15 U/L (15-37); B-TYPE NATRIURETIC PEPTIDE 293 PG/ML (0-125); BILIRUBIN,TOTAL 0.3 mg/dL (0.2-1.0)
[2016-09-09] MEDS ORDERED: FUROSEMIDE 40 MG/4 ML VIAL ONE (08:24)
[2016-09-09] MEDS ORDERED: FUROSEMIDE 40 MG/4 ML VIAL IV ONE (08:30)
[2016-09-09 09:29] LABS: ABG BASE EXCESS -0.8 mmol/L; ABG OXYGEN SATURATION 95.1 % (92.0-98.5); ABG PCO2 78.7 mmHg (35.0-45.0); ABG PH 7.183 (7.350-7.450); ABG PO2 95.5 mmHg (75.0-100.0); ABG TOTAL HEMOGLOBIN 10.8 G/dL (12.0-16.0); AaDO2 245.7 mmHg; MetHb 0.5 % (0.0-1.5); O2Hb 93.7 % (94.0-97.0); SITE, ABG Left Radial; VENT MODE, BG ST 15/5
[2016-09-09] MEDS ORDERED: LEVOFLOXACIN 500 MG /D5W 100ML 100 ML IV SCH (11:30)
[2016-09-09] MEDS ORDERED: IPRATROPIUM NEB FS 0.5 MG/2.5 ML AMPUL.NEB NEB SCH (11:30)
[2016-09-09] MEDS ORDERED: SECONDARY IV SET 1 EA INFUS.SET MC ONE (12:28)
[2016-09-09] MEDS ORDERED: IV NS 0.9% 250 ML IV ONE (12:28)
[2016-09-09] MEDS ORDERED: Z GUARD REMEDY 2 OZ OINT TP PRN ×2 (12:30→13:30)
[2016-09-09] MEDS: methylPREDNISolone SOD SUCC 125 MG/2ML VIAL IV SCH ×2 (12:42→21:32)
[2016-09-09] MEDS: ENOXAPARIN SODIUM 40 MG/0.4 ML DISP.SYRIN SQ SCH (12:52)
[2016-09-09] MEDS ORDERED: DEXTROSE 50%-WATER 50 ML DISP.SYRIN IV PRN ×3 (13:00→18:30)
[2016-09-09] MEDS ORDERED: BLOOD SUGAR DIAGNOSTIC 1 EACH STRIP VI SCH (13:00)
[2016-09-09] MEDS ORDERED: *INSULIN REGULAR(HUMULIN R)HUM 100 UNIT/ML VIAL SQ PRN (13:00)
[2016-09-09] MEDS ORDERED: LEVOFLOXACIN 500 MG /D5W 100ML 500 MG in PREMIX 1 EA IV ONE (13:00)
[2016-09-09] MEDS ORDERED: INSULIN REGULAR, HUMAN 100 UNIT/ML 3 ML VIAL SQ PRN ×2 (13:00→13:30)
[2016-09-09] MEDS ORDERED: MAGNESIUM HYDROXIDE 30 ML UDC PO PRN (13:30)
[2016-09-09] MEDS ORDERED: ACETAMINOPHEN 325 MG TABLET PO PRN (13:30)
[2016-09-09] MEDS ORDERED: NA PHOS,M-B/NA PHOS,DI-BA 1 EA ENEMA RC PRN (13:30)
[2016-09-09] MEDS ORDERED: ONDANSETRON HCL/PF 4 MG/2 ML VIAL IVP PRN (13:30)
[2016-09-09] MEDS ORDERED: CLONIDINE HCL 0.1 MG TABLET PO PRN (13:30)
[2016-09-09] MEDS ORDERED: METHIMAZOLE (5MG) 5 MG TABLET PO SCH (13:36)
[2016-09-09] MEDS: IPRATROPIUM NEB FS 0.5 MG/2.5 ML AMPUL.NEB NEB SCH ×2 (15:00→19:30)
[2016-09-09] MEDS ORDERED: ALBUTEROL HALF STRENGTH 1.25 MG/3 ML VIAL.NEB NEB SCH (15:30)
[2016-09-09] MEDS: FERROUS SULFATE (325 MG) 325 MG/TAB TABLET PO SCH (16:04)
[2016-09-09] MEDS: CARVEDILOL 12.5 MG TABLET PO SCH (16:04)
[2016-09-09] MEDS: FLUTICASONE/SALMETEROL DISKUS IH SCH (16:04)
[2016-09-09] MEDS ORDERED: methylPREDNISolone SOD SUCC 125 MG/2ML VIAL IV SCH (17:00)
[2016-09-09] MEDS ORDERED: BLOOD SUGAR DIAGNOSTIC 1 EACH STRIP IN SCH (17:30)
[2016-09-09] MEDS: ALBUTEROL FS 2.5 MG/3 ML VIAL.NEB NEB SCH (19:30)
[2016-09-09] MEDS: MONTELUKAST SODIUM (10MG) 10 MG TABLET PO SCH (21:32)
[2016-09-09] MEDS: GABAPENTIN 100 MG CAPSULE PO SCH (21:32)
[2016-09-09] MEDS: *INSULIN REGULAR(HUMULIN R)HUM 100 UNIT/ML VIAL SQ PRN (21:36)
[2016-09-09] MEDS: INSULIN DETEMIR 100 UNIT/ML CARTRIDGE SQ SCH (21:36)
[2016-09-09] MEDS: BLOOD SUGAR DIAGNOSTIC 1 EACH STRIP VI SCH (21:37)
[2016-09-09] MEDS ORDERED: GABAPENTIN 100 MG CAPSULE PO SCH (22:00)
[2016-09-10] VITALS (24 sets, daily range): BP systolic 100–160; BP diastolic 34–90
[2016-09-10] MEDS: ALBUTEROL FS 2.5 MG/3 ML VIAL.NEB NEB SCH ×5 (01:30→20:33)
[2016-09-10 04:42] LABS: HEMATOCRIT 28 % (33-45); HEMOGLOBIN 8.1 g/dL (11.5-14.8); LYMPHOCYTES # (AUTO) 0.7 /CMM (0.8-4.8); LYMPHOCYTES % (AUTO) 4.9 % (20.0-44.0); MEAN CORPUSCULAR HEMOGLOBIN 20 PG (26.0-33.0); MEAN CORPUSCULAR HGB CONC 29 g/dl (31.0-36.0); MEAN CORPUSCULAR VOLUME 69 fL (82-100); MONOCYTES # (AUTO) 0.1 /CMM (0.1-1.30); NEUTROPHILS # (AUTO) 13.3 /CMM (1.8-8.9); NEUTROPHILS % (AUTO) 94.1 % (43.0-81.0); PLATELET COUNT (AUTO) 163 /CMM (150-450); RDW COEFFICIENT OF VARIATION 16.9 (11.5-15.0); RED BLOOD CELL COUNT(AUTO) 4.07 MIL/uL (4.0-5.2); WHITE BLOOD COUNT (AUTO) 14.2 K/uL (4.3-11.0)
[2016-09-10 04:56] LABS: ALBUMIN 2.4 g/dL (3.4-5.0); BILIRUBIN,TOTAL 0.2 mg/dL (0.2-1.0); CALCIUM, SERUM 8.2 mg/dL (8.5-10.1); CREATININE 1.6 mg/dL (0.6-1.3); MAGNESIUM 1.5 mg/dL (1.8-2.4); PHOSPHORUS 3.7 mg/dL (2.5-4.9); POTASSIUM 5.6 mmol/L (3.5-5.1)
[2016-09-10] MEDS: methylPREDNISolone SOD SUCC 125 MG/2ML VIAL IV SCH ×3 (05:00→16:35)
[2016-09-10 06:03] LABS: ANISOCYTOSIS 1+; BASOPHILS % (MANUAL) 0 % (0.0-2.0); EOSINOPHILS % (MANUAL) 0 % (0-4); HYPOCHROMASIA 2+; LYMPHOCYTES % (MANUAL) 3 % (16-48); MONOCYTES % (MANUAL) 1 % (0-11.0); NEUTROPHILS % (MANUAL) 96 (42-76); PLATELET ESTIMATE ADEQUATE
[2016-09-10] MEDS: IPRATROPIUM NEB FS 0.5 MG/2.5 ML AMPUL.NEB NEB SCH ×4 (07:09→20:33)
[2016-09-10] MEDS: BLOOD SUGAR DIAGNOSTIC 1 EACH STRIP VI SCH ×4 (08:04→21:09)
[2016-09-10] MEDS: AMLODIPINE BESYLATE 5 MG TABLET PO SCH (08:05)
[2016-09-10] MEDS: CARVEDILOL 12.5 MG TABLET PO SCH ×2 (08:05→16:00)
[2016-09-10] MEDS: DOCUSATE SODIUM 100 MG CAPSULE PO SCH (08:05)
[2016-09-10] MEDS: FERROUS SULFATE (325 MG) 325 MG/TAB TABLET PO SCH ×2 (08:05→16:00)
[2016-09-10] MEDS: FLUTICASONE/SALMETEROL DISKUS IH SCH ×2 (08:05→16:00)
[2016-09-10] MEDS: METHIMAZOLE (5MG) 5 MG TABLET PO SCH (08:06)
[2016-09-10] MEDS: ENOXAPARIN SODIUM 40 MG/0.4 ML DISP.SYRIN SQ SCH (08:07)
[2016-09-10] MEDS: INSULIN REGULAR, HUMAN 100 UNIT/ML 3 ML VIAL SQ PRN ×4 (08:07→21:07)
[2016-09-10] MEDS ORDERED: SODIUM POLYSTYRENE SULFONATE 15 G/60 ML BOTTLE PO ONE (08:30)
[2016-09-10] MEDS ORDERED: BISACODYL SUPP (10 MG) 10 MG/SUPP.RECT SUPP.RECT RC PRN (09:00)
[2016-09-10] MEDS ORDERED: BISACODYL SUPP (10 MG) 10 MG/SUPP.RECT SUPP.RECT RC SCH (09:00)
[2016-09-10] MEDS ORDERED: Magnesium 1GM/D5W 100ML PREMIX 100 ML IV SCH (11:58)
[2016-09-10] MEDS ORDERED: SECONDARY IV SET 1 EA INFUS.SET MC ONE (12:00)
[2016-09-10] MEDS: LEVOFLOXACIN 250 MG /D5W 50 ML 250 MG in PREMIX 1 EA IV SCH (13:27)
[2016-09-10 18:02] LABS: THYROID STIMULATING HORMONE 0.626 uIU/mL (0.358-3.74)
[2016-09-10] MEDS: GABAPENTIN 100 MG CAPSULE PO SCH (21:06)
[2016-09-10] MEDS: MONTELUKAST SODIUM (10MG) 10 MG TABLET PO SCH (21:06)
[2016-09-10] MEDS: INSULIN DETEMIR 100 UNIT/ML CARTRIDGE SQ SCH (21:07)
[2016-09-11] VITALS (19 sets, daily range): BP systolic 114–169; BP diastolic 44–99
[2016-09-11] MEDS: ALBUTEROL FS 2.5 MG/3 ML VIAL.NEB NEB SCH ×4 (01:22→20:21)
[2016-09-11 04:43] LABS: HEMATOCRIT 26 % (33-45); HEMOGLOBIN 7.9 g/dL (11.5-14.8); LYMPHOCYTES # (AUTO) 0.7 /CMM (0.8-4.8); LYMPHOCYTES % (AUTO) 6.3 % (20.0-44.0); MEAN CORPUSCULAR HEMOGLOBIN 20 PG (26.0-33.0); MEAN CORPUSCULAR HGB CONC 30 g/dl (31.0-36.0); MEAN CORPUSCULAR VOLUME 68 fL (82-100); MONOCYTES # (AUTO) 0.3 /CMM (0.1-1.30); MONOCYTES % (AUTO) 2.6 % (2.0-12.0); NEUTROPHILS # (AUTO) 10.6 /CMM (1.8-8.9); NEUTROPHILS % (AUTO) 91.1 % (43.0-81.0); PLATELET COUNT (AUTO) 151 /CMM (150-450); RDW COEFFICIENT OF VARIATION 17.3 (11.5-15.0); WHITE BLOOD COUNT (AUTO) 11.6 K/uL (4.3-11.0)
[2016-09-11 04:48] LABS: CREATININE 1.6 mg/dL (0.6-1.3); MAGNESIUM 1.9 mg/dL (1.8-2.4); PHOSPHORUS 3.8 mg/dL (2.5-4.9); POTASSIUM 3.8 mmol/L (3.5-5.1)
[2016-09-11 05:26] LABS: LYMPHOCYTES % (MANUAL) 7 % (16-48); MONOCYTES % (MANUAL) 2 % (0-11.0); NEUTROPHILS % (MANUAL) 91 (42-76)
[2016-09-11 05:27] LABS: PLATELET ESTIMATE DECREASED
[2016-09-11 05:28] LABS: ANISOCYTOSIS 2+; HYPOCHROMASIA 2+
[2016-09-11] MEDS: IPRATROPIUM NEB FS 0.5 MG/2.5 ML AMPUL.NEB NEB SCH ×3 (07:35→20:21)
[2016-09-11] MEDS: BLOOD SUGAR DIAGNOSTIC 1 EACH STRIP VI SCH ×4 (08:19→21:28)
[2016-09-11] MEDS: methylPREDNISolone SOD SUCC 125 MG/2ML VIAL IV SCH (08:28)
[2016-09-11] MEDS: DOCUSATE SODIUM 100 MG CAPSULE PO SCH (08:29)
[2016-09-11] MEDS: FERROUS SULFATE (325 MG) 325 MG/TAB TABLET PO SCH ×2 (08:29→16:29)
[2016-09-11] MEDS: CARVEDILOL 12.5 MG TABLET PO SCH ×2 (08:29→16:33)
[2016-09-11] MEDS: AMLODIPINE BESYLATE 5 MG TABLET PO SCH (08:29)
[2016-09-11] MEDS: ENOXAPARIN SODIUM 40 MG/0.4 ML DISP.SYRIN SQ SCH (08:31)
[2016-09-11] MEDS: FLUTICASONE/SALMETEROL DISKUS IH SCH ×2 (08:31→16:32)
[2016-09-11] MEDS: METHIMAZOLE (5MG) 5 MG TABLET PO SCH (08:31)
[2016-09-11] MEDS: INSULIN REGULAR, HUMAN 100 UNIT/ML 3 ML VIAL SQ PRN ×2 (12:44→17:03)
[2016-09-11] MEDS ORDERED: IV SET PRIMARY PUMP SET 1 EA INFUS.SET MC ONE (13:35)
[2016-09-11] MEDS ORDERED: IV NS 0.9% 250 ML IV ONE (13:35)
[2016-09-11] MEDS ORDERED: SECONDARY IV SET 1 EA INFUS.SET MC ONE (13:35)
[2016-09-11] MEDS: LEVOFLOXACIN 250 MG /D5W 50 ML 250 MG in PREMIX 1 EA IV SCH (13:43)
[2016-09-11] MEDS: GABAPENTIN 100 MG CAPSULE PO SCH (21:19)
[2016-09-11] MEDS: INSULIN DETEMIR 100 UNIT/ML CARTRIDGE SQ SCH (21:25)
[2016-09-11] MEDS: *INSULIN REGULAR(HUMULIN R)HUM 100 UNIT/ML VIAL SQ PRN (21:27)
[2016-09-11] MEDS: MONTELUKAST SODIUM (10MG) 10 MG TABLET PO SCH (21:30)
[2016-09-12] VITALS: BP 163/46
[2016-09-12] MEDS: ALBUTEROL FS 2.5 MG/3 ML VIAL.NEB NEB SCH ×4 (01:48→19:59)
[2016-09-12 04:00] VITALS: BP 157/48
[2016-09-12 07:00] LABS: HEMATOCRIT 29 % (33-45); HEMOGLOBIN 8.8 g/dL (11.5-14.8); MEAN CORPUSCULAR HEMOGLOBIN 21 PG (26.0-33.0); MEAN CORPUSCULAR HGB CONC 30 g/dl (31.0-36.0); MEAN CORPUSCULAR VOLUME 70 fL (82-100); PLATELET COUNT (AUTO) 143 /CMM (150-450); RDW COEFFICIENT OF VARIATION 16.9 (11.5-15.0); RED BLOOD CELL COUNT(AUTO) 4.16 MIL/uL (4.0-5.2); WHITE BLOOD COUNT (AUTO) 10.3 K/uL (4.3-11.0)
[2016-09-12] MEDS: BLOOD SUGAR DIAGNOSTIC 1 EACH STRIP VI SCH ×4 (07:30→21:54)
[2016-09-12 07:32] LABS: CALCIUM, SERUM 8.1 mg/dL (8.5-10.1); CREATININE 1.3 mg/dL (0.6-1.3); POTASSIUM 3.4 mmol/L (3.5-5.1)
[2016-09-12 08:00] VITALS: BP 166/67
[2016-09-12] MEDS: IPRATROPIUM NEB FS 0.5 MG/2.5 ML AMPUL.NEB NEB SCH ×3 (08:07→19:59)
[2016-09-12] MEDS: predniSONE 20 MG TABLET PO SCH (08:59)
[2016-09-12] MEDS: FERROUS SULFATE (325 MG) 325 MG/TAB TABLET PO SCH ×2 (08:59→17:28)
[2016-09-12] MEDS: CARVEDILOL 12.5 MG TABLET PO SCH ×2 (09:00→17:28)
[2016-09-12] MEDS: FLUTICASONE/SALMETEROL DISKUS IH SCH ×2 (09:00→17:29)
[2016-09-12] MEDS ORDERED: predniSONE 20 MG TABLET PO SCH (09:00)
[2016-09-12] MEDS: DOCUSATE SODIUM 100 MG CAPSULE PO SCH (09:00)
[2016-09-12] MEDS: ENOXAPARIN SODIUM 40 MG/0.4 ML DISP.SYRIN SQ SCH (09:04)
[2016-09-12] MEDS: METHIMAZOLE (5MG) 5 MG TABLET PO SCH (09:07)
[2016-09-12] MEDS: LISINOPRIL (10MG) 10 MG TABLET PO SCH (09:08)
[2016-09-12 09:14] LABS: LYMPHOCYTES % (MANUAL) 25 % (16-48); MONOCYTES % (MANUAL) 10 % (0-11.0); NEUTROPHILS % (MANUAL) 65 (42-76)
[2016-09-12 09:15] LABS: ANISOCYTOSIS 1+; HYPOCHROMASIA 1+; PLATELET ESTIMATE DECREASED
[2016-09-12] MEDS ORDERED: POTASSIUM CHLORIDE 20 MEQ TAB.PRT.SR PO SCH (11:00)
[2016-09-12 12:00] VITALS: BP 158/71
[2016-09-12] MEDS ORDERED: SECONDARY IV SET 1 EA INFUS.SET MC ONE (13:45)
[2016-09-12] MEDS: LEVOFLOXACIN 250 MG /D5W 50 ML 250 MG in PREMIX 1 EA IV SCH (13:49)
[2016-09-12 16:00] VITALS: BP 109/49
[2016-09-12] MEDS: *INSULIN REGULAR(HUMULIN R)HUM 100 UNIT/ML VIAL SQ PRN ×2 (17:32→21:54)
[2016-09-12 20:00] VITALS: BP 134/67
[2016-09-12] MEDS: MONTELUKAST SODIUM (10MG) 10 MG TABLET PO SCH (21:52)
[2016-09-12] MEDS: INSULIN DETEMIR 100 UNIT/ML CARTRIDGE SQ SCH (21:52)
[2016-09-12] MEDS: GABAPENTIN 100 MG CAPSULE PO SCH (21:52)
[2016-09-13] VITALS (7 sets, daily range): BP systolic 119–176; BP diastolic 49–74
[2016-09-13] MEDS: ALBUTEROL FS 2.5 MG/3 ML VIAL.NEB NEB SCH ×3 (01:14→13:30)
[2016-09-13 06:30] LABS: HEMATOCRIT 28 % (33-45); HEMOGLOBIN 8.6 g/dL (11.5-14.8); MEAN CORPUSCULAR HEMOGLOBIN 21 PG (26.0-33.0); MEAN CORPUSCULAR HGB CONC 30 g/dl (31.0-36.0); MEAN CORPUSCULAR VOLUME 69 fL (82-100); PLATELET COUNT (AUTO) 143 /CMM (150-450); RDW COEFFICIENT OF VARIATION 16.8 (11.5-15.0); RED BLOOD CELL COUNT(AUTO) 4.12 MIL/uL (4.0-5.2); WHITE BLOOD COUNT (AUTO) 7.2 K/uL (4.3-11.0)
[2016-09-13] MEDS: BLOOD SUGAR DIAGNOSTIC 1 EACH STRIP VI SCH ×3 (06:42→17:22)
[2016-09-13 06:59] LABS: CALCIUM, SERUM 7.9 mg/dL (8.5-10.1); CREATININE 1.2 mg/dL (0.6-1.3); POTASSIUM 3.8 mmol/L (3.5-5.1)
[2016-09-13] MEDS: IPRATROPIUM NEB FS 0.5 MG/2.5 ML AMPUL.NEB NEB SCH ×2 (07:35→13:30)
[2016-09-13] MEDS: predniSONE 20 MG TABLET PO SCH (08:30)
[2016-09-13] MEDS: FERROUS SULFATE (325 MG) 325 MG/TAB TABLET PO SCH ×2 (08:30→17:21)
[2016-09-13] MEDS: FLUTICASONE/SALMETEROL DISKUS IH SCH ×2 (08:30→17:21)
[2016-09-13] MEDS: DOCUSATE SODIUM 100 MG CAPSULE PO SCH (08:32)
[2016-09-13] MEDS: METHIMAZOLE (5MG) 5 MG TABLET PO SCH (08:33)
[2016-09-13] MEDS: ENOXAPARIN SODIUM 40 MG/0.4 ML DISP.SYRIN SQ SCH (08:39)
[2016-09-13] MEDS: *INSULIN REGULAR(HUMULIN R)HUM 100 UNIT/ML VIAL SQ PRN ×2 (08:43→17:32)
[2016-09-13] MEDS: CARVEDILOL 12.5 MG TABLET PO SCH ×2 (09:00→17:22)
[2016-09-13] MEDS: LISINOPRIL (10MG) 10 MG TABLET PO SCH (09:00)
[2016-09-13 09:21] LABS: LYMPHOCYTES % (MANUAL) 43 % (16-48); MONOCYTES % (MANUAL) 17 % (0-11.0); NEUTROPHILS % (MANUAL) 40 (42-76)
[2016-09-13 09:22] LABS: ANISOCYTOSIS 1+; HYPOCHROMASIA 1+; PLATELET ESTIMATE DECREASED
[2016-09-13 09:23] LABS: OVALOCYTES 1+
[2016-09-13 10:38] LABS: ABG BASE EXCESS 8.1 mmol/L; ABG OXYGEN SATURATION 94.2 % (92.0-98.5); ABG PCO2 52.6 mmHg (35.0-45.0); ABG PH 7.423 (7.350-7.450); ABG PO2 74.7 mmHg (75.0-100.0); AaDO2 62.9 mmHg; COHb 0.8 % (0.5-1.5); MetHb 0.5 % (0.0-1.5); SITE, ABG Right Radial; VENT MODE, BG NASAL CANULLA
[2016-09-13] MEDS: INSULIN REGULAR, HUMAN 100 UNIT/ML 3 ML VIAL SQ PRN (13:47)
[2016-09-14] MEDS ORDERED: LISI10TA5 PO (07:52)
[2016-09-14] MEDS ORDERED: LEVO250T59 PO (07:52)
[2016-09-14] MEDS ORDERED: PRED20TA PO (07:52)
[2016-09-14] MEDS ORDERED: CARV6.25 PO (07:52)
== END 2016-09-13 20:29 | DRG 291 ==
LOC: ER 06:18 → ICU 10:16 → TELE-TD 09-11 13:29 → TELE1 09-11 14:18 → MEDSG1 09-13 15:47
PROVIDERS: ADMIT Nurse Practitioner Acute Care; ATTEND Nurse Practitioner Acute Care
PROC: 5A09357 Assistance with Respiratory Ventilation, Less than 24 Consecutive Hours, Continuous Positive Airway Pressure (ICD-10-PCS; principal; 2016-09-09)
DX: I11.0 Hypertensive heart disease with heart failure (principal); J96.22 Acute and chronic respiratory failure with hypercapnia; E87.2 Acidosis; J44.1 Chronic obstructive pulmonary disease with (acute) exacerbation; J45.901 Unspecified asthma with (acute) exacerbation; N17.9 Acute kidney failure, unspecified; I50.33 Acute on chronic diastolic (congestive) heart failure; E03.9 Hypothyroidism, unspecified; E11.65 Type 2 diabetes mellitus with hyperglycemia; E78.5 Hyperlipidemia, unspecified; I12.9 Hypertensive chronic kidney disease with stage 1 through stage 4 chronic kidney disease, or unspecified chronic kidney disease; D64.9 Anemia, unspecified; E11.40 Type 2 diabetes mellitus with diabetic neuropathy, unspecified; F03.90 Unspecified dementia, unspecified severity, without behavioral disturbance, psychotic disturbance, mood disturbance, and anxiety; I25.10 Atherosclerotic heart disease of native coronary artery without angina pectoris; F32.9 Major depressive disorder, single episode, unspecified; R00.1 Bradycardia, unspecified; E05.90 Thyrotoxicosis, unspecified without thyrotoxic crisis or storm; E11.22 Type 2 diabetes mellitus with diabetic chronic kidney disease; E87.5 Hyperkalemia; F29 Unspecified psychosis not due to a substance or known physiological condition; N18.9 Chronic kidney disease, unspecified; Z87.891 Personal history of nicotine dependence
CPT/HCPCS: 36415; 36600; 71010-TC; 80048-TC; 80053-TC; 80061-TC; 80076-TC; 82962-TC; 83735-TC; 83880; 84100-TC; 84132-TC; 84443-TC; 84484-TC; 85025-TC; 87081-TC; 94799-TC; 97001-TC; A4216; A4606; J1650; J1815; J1940; J1956; J2930; J3475; J7050; Z7610

== ENCOUNTER 2016-09-13 21:25 | Inpatient (IN) | payer MEDICARE, MEDICAID ==
[~2016-09-13] VITALS: Ht 162.6 cm; Wt 73.9 kg
[2016-09-13 20:00] VITALS: BP 157/67
[2016-09-13 20:30] VITALS: BP 157/67
--- NOTE | 2016-09-13 21:00 | NUR ---
GPS/CONCRETE BUSTER OPERATOR ADMISSION NOTES: 75YR. OLD FEMALE ADMITTED ON A 5150 HOLD FOR DTS/GD. PT. ORIENTED TO UNIT POLICIES, PROTOCOLS, AND ROUTINE. NO CONTRABAND FOUND WITH PT. DURING ADMISSION. NO C/O PAIN OR DISCOMFORT. DENYING ANY SI/HI AT THIS TIME. CALL CLINE WITHIN REACH AND SAFETY ENVIRONMENT OBSERVED AT ALL TIMES. PSYCH AND MEDICAL NOTIFIED OF PT. ADMISSION TO UNIT.
[2016-09-13] MEDS ORDERED: MAGNESIUM HYDROXIDE 30 ML UDC PO PRN (21:30)
[2016-09-13] MEDS ORDERED: MAG HYDROX/AL HYDROX/SIMETH 30 ML UDC PO PRN (21:30)
[2016-09-13] MEDS ORDERED: TEMAZEPAM 7.5 MG CAPSULE PO PRN (21:30)
[2016-09-13] MEDS ORDERED: LORAZEPAM 0.5 MG TABLET PO PRN (21:30)
[2016-09-13] MEDS ORDERED: ACETAMINOPHEN 325 MG TABLET PO PRN (21:30)
[2016-09-14] MEDS ORDERED: NA PHOS,M-B/NA PHOS,DI-BA 1 EA ENEMA RC PRN (01:00)
[2016-09-14] MEDS ORDERED: CLONIDINE HCL 0.1 MG TABLET PO PRN ×2 (01:00→09:30)
[2016-09-14] MEDS ORDERED: METHIMAZOLE (5MG) 5 MG TABLET PO SCH ×3 (07:30→09:00)
[2016-09-14] MEDS ORDERED: PRED20TA PO (07:52)
[2016-09-14] MEDS ORDERED: LEVO250T59 PO (07:52)
[2016-09-14] MEDS ORDERED: LISI10TA5 PO (07:52)
[2016-09-14] MEDS ORDERED: CARV6.25 PO (07:52)
[2016-09-14 08:07] VITALS: BP 153/64
[2016-09-14 08:14] LABS: HEMATOCRIT 28 % (33-45); HEMOGLOBIN 8.5 g/dL (11.5-14.8); MEAN CORPUSCULAR HEMOGLOBIN 21 PG (26.0-33.0); MEAN CORPUSCULAR HGB CONC 30 g/dl (31.0-36.0); MEAN CORPUSCULAR VOLUME 68 fL (82-100); PLATELET COUNT (AUTO) 143 /CMM (150-450); RDW COEFFICIENT OF VARIATION 16.5 (11.5-15.0); RED BLOOD CELL COUNT(AUTO) 4.13 MIL/uL (4.0-5.2); WHITE BLOOD COUNT (AUTO) 6.2 K/uL (4.3-11.0)
[2016-09-14 08:32] LABS: ALBUMIN 2.3 g/dL (3.4-5.0); BILIRUBIN,TOTAL 0.3 mg/dL (0.2-1.0); CREATININE 1.1 mg/dL (0.6-1.3); TOTAL PROTEIN, SERUM 5.4 g/dL (6.4-8.2)
[2016-09-14] MEDS: PROSOURCE / PROSTAT (PYXIS) 30 ML UDC PO SCH (09:00)
[2016-09-14] MEDS: FERROUS SULFATE (325 MG) 325 MG/TAB TABLET PO SCH ×2 (09:00→17:52)
[2016-09-14] MEDS: DOCUSATE SODIUM 100 MG CAPSULE PO SCH (09:00)
[2016-09-14] MEDS: MULTIVITAMINS W-MINERALS 1 TAB TABLET PO SCH (09:00)
[2016-09-14] MEDS: FLUTICASONE/SALMETEROL DISKUS IH SCH ×2 (09:01→17:52)
[2016-09-14 09:10] LABS: EOSINOPHILS % (MANUAL) 2 % (0-4); LYMPHOCYTES % (MANUAL) 55 % (16-48); MONOCYTES % (MANUAL) 5 % (0-11.0); NEUTROPHILS % (MANUAL) 38 (42-76)
[2016-09-14 09:11] LABS: ANISOCYTOSIS 1+; HYPOCHROMASIA 1+; PLATELET ESTIMATE DECREASED
[2016-09-14] MEDS ORDERED: DEXTROSE 50%-WATER 50 ML DISP.SYRIN IV PRN (09:30)
[2016-09-14] MEDS ORDERED: BISACODYL SUPP (10 MG) 10 MG/SUPP.RECT SUPP.RECT RC PRN (09:30)
[2016-09-14] MEDS ORDERED: MAGNESIUM HYDROXIDE 30 ML UDC PO PRN (09:30)
[2016-09-14] MEDS ORDERED: ACETAMINOPHEN 325 MG TABLET PO PRN (09:30)
[2016-09-14] MEDS: METHIMAZOLE (5MG) 5 MG TABLET PO SCH (10:49)
[2016-09-14] MEDS: OLANZAPINE 2.5 MG TABLET PO SCH ×2 (11:56→17:52)
[2016-09-14] MEDS: BLOOD SUGAR DIAGNOSTIC 1 EACH STRIP VI SCH ×3 (12:50→22:25)
--- NOTE | 2016-09-14 16:42 | NUR ---
Initial discharge plan: Pt. resides at [facility] [address] [facility] [id number] but SW was unable to verify if pt. is able to return. SW will follow up with the facility later and will update. PAO will follow up with MD, pt, and facility, and will help form safe and proper discharge.
[2016-09-14 16:43] VITALS: BP 155/55
[2016-09-14] MEDS ORDERED: Medication Not On Formulary EA (Cranberry Extract (Cranberry) 425 MG) PO SCH (17:00)
[2016-09-14] MEDS ORDERED: FLUTICASONE/SALMETEROL DISKUS IH SCH (17:00)
[2016-09-14] MEDS ORDERED: FERROUS SULFATE (325 MG) 325 MG/TAB TABLET PO SCH (17:00)
[2016-09-14 17:54] VITALS: BP 152/56
[2016-09-14] MEDS: CARVEDILOL 6.25 MG TABLET PO SCH (17:54)
[2016-09-14 20:19] VITALS: BP 142/60
[2016-09-14] MEDS ORDERED: INSULIN DETEMIR 100 UNIT/ML CARTRIDGE SQ SCH (22:00)
[2016-09-14] MEDS ORDERED: INSULIN DETEMIR 15 UNIT SQ SCH (22:00)
[2016-09-14] MEDS ORDERED: GABAPENTIN 100 MG CAPSULE PO SCH (22:00)
[2016-09-14] MEDS ORDERED: MONTELUKAST SODIUM (10MG) 10 MG TABLET PO SCH (22:00)
[2016-09-14] MEDS: GABAPENTIN 100 MG CAPSULE PO SCH (22:25)
[2016-09-14] MEDS: MONTELUKAST SODIUM (10MG) 10 MG TABLET PO SCH (22:25)
[2016-09-14] MEDS: *INSULIN REGULAR(HUMULIN R)HUM 100 UNIT/ML VIAL SQ PRN (22:42)
[2016-09-15 07:23] LABS: CALCIUM, SERUM 7.8 mg/dL (8.5-10.1); CREATININE 1.2 mg/dL (0.6-1.3)
[2016-09-15] MEDS: BLOOD SUGAR DIAGNOSTIC 1 EACH STRIP VI SCH ×4 (07:33→21:34)
[2016-09-15 07:34] LABS: HEMATOCRIT 29 % (33-45); HEMOGLOBIN 8.7 g/dL (11.5-14.8); MEAN CORPUSCULAR HEMOGLOBIN 21 PG (26.0-33.0); MEAN CORPUSCULAR HGB CONC 30 g/dl (31.0-36.0); MEAN CORPUSCULAR VOLUME 69 fL (82-100); PLATELET COUNT (AUTO) 161 /CMM (150-450); RDW COEFFICIENT OF VARIATION 16.5 (11.5-15.0); RED BLOOD CELL COUNT(AUTO) 4.23 MIL/uL (4.0-5.2); WHITE BLOOD COUNT (AUTO) 7.4 K/uL (4.3-11.0)
--- NOTE | 2016-09-15 07:35 | NUR ---
RN NOTE MD AND SENIOR STORAGE ENGINEER AWARE OF PT CRITICAL LOW BS. RECHECKED 25, NO S/S OF HYPOGLYCEMIA, NO C/O DIZZINESS. PT NON-DIAPHORETIC, SKIN WARM TO TOUCH, DENIES DIZZINESS.. REPORT GIVEN TO CARLOS BARRAZA FOR HAVEN.
[2016-09-15 08:37] VITALS: BP 164/75
[2016-09-15 08:52] LABS: ANISOCYTOSIS 1+; BAND % (MANUAL) 2 % (0.0-5.0); BASOPHILS % (MANUAL) 0 % (0.0-2.0); EOSINOPHILS % (MANUAL) 3 % (0-4); HYPOCHROMASIA 2+; LYMPHOCYTES % (MANUAL) 33 % (16-48); MONOCYTES % (MANUAL) 6 % (0-11.0); NEUTROPHILS % (MANUAL) 56 (42-76); OVALOCYTES 1+; PLATELET ESTIMATE ADEQUATE; TARGET CELLS 1+; TEAR DROP CELLS 1+
[2016-09-15] MEDS ORDERED: Medication Not On Formulary EA (Amino Acids/Protein Hydrolys (Pro-Stat Liquid) 30 ML) PO SCH (09:00)
[2016-09-15] MEDS ORDERED: predniSONE 20 MG TABLET PO SCH (09:00)
[2016-09-15] MEDS ORDERED: LEVOFLOXACIN (250MG) 250 MG TABLET PO SCH (09:00)
[2016-09-15] MEDS: CARVEDILOL 6.25 MG TABLET PO SCH ×2 (09:00→17:20)
[2016-09-15] MEDS ORDERED: DOCUSATE SODIUM 100 MG CAPSULE PO SCH (09:00)
[2016-09-15] MEDS: MULTIVITAMINS W-MINERALS 1 TAB TABLET PO SCH (09:07)
[2016-09-15] MEDS: FERROUS SULFATE (325 MG) 325 MG/TAB TABLET PO SCH ×2 (09:07→17:20)
[2016-09-15] MEDS: OLANZAPINE 2.5 MG TABLET PO SCH ×2 (09:07→17:20)
[2016-09-15] MEDS: DOCUSATE SODIUM 100 MG CAPSULE PO SCH (09:07)
[2016-09-15] MEDS: FLUTICASONE/SALMETEROL DISKUS IH SCH ×2 (09:08→17:21)
[2016-09-15] MEDS: LISINOPRIL (10MG) 10 MG TABLET PO SCH (09:08)
[2016-09-15] MEDS: PROSOURCE / PROSTAT (PYXIS) 30 ML UDC PO SCH (09:09)
[2016-09-15] MEDS: METHIMAZOLE (5MG) 5 MG TABLET PO SCH (09:10)
[2016-09-15 16:05] VITALS: BP 143/58
[2016-09-15 20:01] VITALS: BP 127/69
[2016-09-15] MEDS: MONTELUKAST SODIUM (10MG) 10 MG TABLET PO SCH (21:35)
[2016-09-15] MEDS: GABAPENTIN 100 MG CAPSULE PO SCH (21:35)
[2016-09-15] MEDS: INSULIN REGULAR, HUMAN 100 UNIT/ML 3 ML VIAL SQ PRN (21:41)
[2016-09-15] MEDS ORDERED: INSULIN DETEMIR 100 UNIT/ML CARTRIDGE SQ SCH (22:00)
[2016-09-16] MEDS: BLOOD SUGAR DIAGNOSTIC 1 EACH STRIP VI SCH ×4 (07:11→22:22)
[2016-09-16 07:16] LABS: CALCIUM, SERUM 8.3 mg/dL (8.5-10.1); CREATININE 1.2 mg/dL (0.6-1.3); POTASSIUM 4.9 mmol/L (3.5-5.1)
[2016-09-16 08:00] VITALS: BP 141/62
[2016-09-16] MEDS: FERROUS SULFATE (325 MG) 325 MG/TAB TABLET PO SCH ×2 (08:28→17:22)
[2016-09-16] MEDS: OLANZAPINE 2.5 MG TABLET PO SCH ×2 (08:29→22:22)
[2016-09-16] MEDS: LISINOPRIL (10MG) 10 MG TABLET PO SCH (08:29)
[2016-09-16] MEDS: FLUTICASONE/SALMETEROL DISKUS IH SCH ×2 (08:29→17:23)
[2016-09-16] MEDS: MULTIVITAMINS W-MINERALS 1 TAB TABLET PO SCH (08:29)
[2016-09-16] MEDS: CARVEDILOL 6.25 MG TABLET PO SCH ×2 (08:29→17:23)
[2016-09-16] MEDS: DOCUSATE SODIUM 100 MG CAPSULE PO SCH (08:29)
[2016-09-16] MEDS: PROSOURCE / PROSTAT (PYXIS) 30 ML UDC PO SCH (08:30)
[2016-09-16] MEDS ORDERED: METHIMAZOLE (5MG) 5 MG TABLET PO SCH (09:00)
[2016-09-16] MEDS: INSULIN REGULAR, HUMAN 100 UNIT/ML 3 ML VIAL SQ PRN (12:09)
[2016-09-16 16:00] VITALS: BP 146/72
[2016-09-16 20:15] VITALS: BP 137/55
[2016-09-16] MEDS: GABAPENTIN 100 MG CAPSULE PO SCH (22:22)
[2016-09-16] MEDS: MONTELUKAST SODIUM (10MG) 10 MG TABLET PO SCH (22:22)
[2016-09-16] MEDS: *INSULIN REGULAR(HUMULIN R)HUM 100 UNIT/ML VIAL SQ PRN (22:29)
[2016-09-17 08:00] VITALS: BP 138/60
[2016-09-17] MEDS: BLOOD SUGAR DIAGNOSTIC 1 EACH STRIP VI SCH ×4 (08:17→22:05)
[2016-09-17] MEDS: PROSOURCE / PROSTAT (PYXIS) 30 ML UDC PO SCH (09:31)
[2016-09-17] MEDS: MULTIVITAMINS W-MINERALS 1 TAB TABLET PO SCH (09:31)
[2016-09-17] MEDS: FLUTICASONE/SALMETEROL DISKUS IH SCH ×2 (09:31→17:48)
[2016-09-17] MEDS: DOCUSATE SODIUM 100 MG CAPSULE PO SCH (09:31)
[2016-09-17] MEDS: FERROUS SULFATE (325 MG) 325 MG/TAB TABLET PO SCH ×2 (09:32→17:50)
[2016-09-17] MEDS: LISINOPRIL (10MG) 10 MG TABLET PO SCH (09:32)
[2016-09-17] MEDS: METHIMAZOLE (5MG) 5 MG TABLET PO SCH (09:32)
[2016-09-17] MEDS: OLANZAPINE 2.5 MG TABLET PO SCH ×2 (09:33→22:04)
[2016-09-17] MEDS: CARVEDILOL 6.25 MG TABLET PO SCH ×2 (09:34→17:50)
[2016-09-17] MEDS: INSULIN REGULAR, HUMAN 100 UNIT/ML 3 ML VIAL SQ PRN ×2 (13:43→17:34)
[2016-09-17 16:00] VITALS: BP 120/58
--- NOTE | 2016-09-17 17:35 | NUR ---
BLOOD SUGAR 130 NO INSULIN COVERAGE NEEDED
[2016-09-17 19:50] VITALS: BP 145/65
[2016-09-17] MEDS: GABAPENTIN 100 MG CAPSULE PO SCH (22:04)
[2016-09-17] MEDS: MONTELUKAST SODIUM (10MG) 10 MG TABLET PO SCH (22:05)
[2016-09-17] MEDS: *INSULIN REGULAR(HUMULIN R)HUM 100 UNIT/ML VIAL SQ PRN (22:52)
[2016-09-18] MEDS: BLOOD SUGAR DIAGNOSTIC 1 EACH STRIP VI SCH ×2 (06:53→12:11)
[2016-09-18 08:00] VITALS: BP 127/69
[2016-09-18] MEDS: FLUTICASONE/SALMETEROL DISKUS IH SCH (08:56)
[2016-09-18] MEDS: CARVEDILOL 6.25 MG TABLET PO SCH (08:57)
[2016-09-18] MEDS: DOCUSATE SODIUM 100 MG CAPSULE PO SCH (08:57)
[2016-09-18] MEDS: MULTIVITAMINS W-MINERALS 1 TAB TABLET PO SCH (08:57)
[2016-09-18 09:04] VITALS: BP 127/69
[2016-09-18] MEDS: LISINOPRIL (10MG) 10 MG TABLET PO SCH (09:04)
[2016-09-18] MEDS: PROSOURCE / PROSTAT (PYXIS) 30 ML UDC PO SCH (09:04)
[2016-09-18] MEDS: FERROUS SULFATE (325 MG) 325 MG/TAB TABLET PO SCH (09:05)
[2016-09-18] MEDS: OLANZAPINE 2.5 MG TABLET PO SCH (09:05)
[2016-09-18] MEDS: METHIMAZOLE (5MG) 5 MG TABLET PO SCH (09:10)
--- NOTE | 2016-09-18 10:14 | NUR ---
Discharge note: Pt. will discharge back to [facility] [address] [facility] [id number] via [facility] 2:00PM. Mattie from facility admission is notified via voicemail, who had previously agreed that pt. should return to the facility as soon as possible. Discharge instruction will be provided to the accepting facility and discharge paperwork will be signed. Pt. is denying suicidal/homicidal ideations and is calm and cooperative. Pt. agrees with discharge plan. No contact center professional to be notified.
--- NOTE | 2016-09-18 11:00 | NUR ---
DISCHARGE PHOTOS TAKEN,TOLERATED WELL.ANXIOUS TO LEAVE.
[2016-09-18] MEDS: INSULIN REGULAR, HUMAN 100 UNIT/ML 3 ML VIAL SQ PRN (12:20)
--- NOTE | 2016-09-18 12:30 | NUR ---
BLOOD SUGAR LUNCH TIME 147.COVERED WITH INSULIN.
--- NOTE | 2016-09-18 13:30 | NUR ---
REPORT CALLED TO PT,S FACILITY. SPOKE TO DANNY.ALL PAPERS SIGNED.
--- NOTE | 2016-09-18 14:10 | NUR ---
REPORT TO DRIVERS,VS TAKEN AND STABLE.TAKEN VIA AMBULANCE TO FACILITY.PT. DENIES HOMICIDAL AND SUICIDAL IDEATION.
== END 2016-09-18 14:10 | DRG 885 ==
LOC: GPS 21:25
PROVIDERS: ADMIT Psychiatry & Neurology Psychosomatic Medicine; ATTEND Family Medicine
DX: F29 Unspecified psychosis not due to a substance or known physiological condition (principal); N18.9 Chronic kidney disease, unspecified; E11.65 Type 2 diabetes mellitus with hyperglycemia; I13.0 Hypertensive heart and chronic kidney disease with heart failure and stage 1 through stage 4 chronic kidney disease, or unspecified chronic kidney disease; E87.2 Acidosis; F32.9 Major depressive disorder, single episode, unspecified; I25.10 Atherosclerotic heart disease of native coronary artery without angina pectoris; I50.9 Heart failure, unspecified; F03.90 Unspecified dementia, unspecified severity, without behavioral disturbance, psychotic disturbance, mood disturbance, and anxiety; E11.22 Type 2 diabetes mellitus with diabetic chronic kidney disease; E11.649 Type 2 diabetes mellitus with hypoglycemia without coma; J44.9 Chronic obstructive pulmonary disease, unspecified; D64.9 Anemia, unspecified; E05.90 Thyrotoxicosis, unspecified without thyrotoxic crisis or storm; E78.5 Hyperlipidemia, unspecified; G62.9 Polyneuropathy, unspecified
CPT/HCPCS: 36415; 80048-TC; 80053-TC; 82962-TC; 85025-TC; 87081-TC; 97001-TC; J1815

== ENCOUNTER 2016-10-01 17:37 | Inpatient (IN) | payer MEDICARE, MEDICAID ==
[~2016-10-01] VITALS: Ht 172.7 cm; Wt 76.3 kg
[~2016-10-01 17:37] MED LIST changes: -AMLO5TAB4 PO; -CARV12.52 PO; +CARV6.25 PO; +LEVO250T59 PO; -LEVO500T15 PO; +LISI10TA5 PO; -MULT-213 PO; -NA P133E RC; -OMEP20CA10 PO
--- NOTE | 2016-10-01 17:54 | NUR ---
bibra from snf due to low blood suga- 50mg/dl. d50 given ithe field with help-- current bs 145. Patient is awakem however confused (baseline) per report. In no acute distress noted. Respiration even and unlabored. Denies pain or dsicomfort. Skin is warm to touch and non diaphoretic. Afebrile. vss. Gowned and placed pt on tele monitor. Pending md hurst
--- NOTE | 2016-10-01 18:12 | NUR ---
iv accessed to [facility]. blood sample sent to lab
[2016-10-01 18:15] LABS: BASOPHILS % (AUTO) 0.5 % (0.0-2.0); EOSINOPHILS % (AUTO) 0.1 % (0.0-6.0); HEMATOCRIT 32 % (33-45); LYMPHOCYTES # (AUTO) 0.7 /CMM (0.8-4.8); LYMPHOCYTES % (AUTO) 11.2 % (20.0-44.0); MEAN CORPUSCULAR HEMOGLOBIN 21 PG (26.0-33.0); MEAN CORPUSCULAR HGB CONC 31 g/dl (31.0-36.0); MEAN CORPUSCULAR VOLUME 69 fL (82-100); MONOCYTES # (AUTO) 0.6 /CMM (0.1-1.30); MONOCYTES % (AUTO) 8.9 % (2.0-12.0); NEUTROPHILS # (AUTO) 5.3 /CMM (1.8-8.9); NEUTROPHILS % (AUTO) 79.3 % (43.0-81.0); PLATELET COUNT (AUTO) 130 /CMM (150-450); RDW COEFFICIENT OF VARIATION 15.9 (11.5-15.0); RED BLOOD CELL COUNT(AUTO) 4.71 MIL/uL (4.0-5.2); WHITE BLOOD COUNT (AUTO) 6.6 K/uL (4.3-11.0)
[2016-10-01 18:24] LABS: CALCIUM, SERUM 8.2 mg/dL (8.5-10.1); CREATININE 1.7 mg/dL (0.6-1.3); POTASSIUM 5.5 mmol/L (3.5-5.1)
[2016-10-01 18:27] LABS: INR 1.02 (0.87-1.13); PROTHROMBIN TIME 10.6 SECS (9.5-12.7)
--- NOTE | 2016-10-01 18:29 | NUR ---
PATIENT TAKEN TO CT
[2016-10-01 18:31] LABS: BILIRUBIN,DIRECT 0.1 mg/dL (0.0-0.2); BILIRUBIN,TOTAL 0.2 mg/dL (0.2-1.0); TOTAL PROTEIN, SERUM 6.2 g/dL (6.4-8.2)
[2016-10-01 18:36] LABS: TROPONIN I 0.069 ng/mL (0.00-0.056)
--- NOTE | 2016-10-01 18:45 | NUR ---
pt is back from ct
--- NOTE | 2016-10-01 19:12 | NUR ---
report given to nurse [place] for alexis
--- NOTE | 2016-10-01 19:18 | NUR ---
PAGED DR BRIGGS
[2016-10-01] MEDS ORDERED: IV SET PRIMARY 1 EA INFUS.SET MC ONE (19:21)
[2016-10-01] MEDS ORDERED: IV NS 0.9% 500 ML IV ONE (19:21)
[2016-10-01] MEDS ORDERED: ASPIRIN 81 MG TAB.CHEW ONE (19:21)
[2016-10-01] MEDS ORDERED: IV NS 0.9% 500 ML BAG IV ONE (19:30)
[2016-10-01] MEDS ORDERED: ASPIRIN 81 MG TAB.CHEW PO ONE (19:30)
--- NOTE | 2016-10-01 19:36 | NUR ---
Received patient in bed, aaox1. No s/s of acute distress. VSS. Patient reported feeling tired. Medicated as ordered by Dr Craig.
[2016-10-01] MEDS ORDERED: INSU100V3 SQ (19:40)
[2016-10-01] MEDS ORDERED: OLAN5TAB3 PO (19:40)
[2016-10-01] MEDS ORDERED: CALC-883 PO (19:40)
[2016-10-01] MEDS ORDERED: CLON0.5T4 PO (19:40)
[2016-10-01] MEDS ORDERED: DIVA250T4 PO (19:40)
[2016-10-01] MEDS ORDERED: IPRA3AMP INH (19:40)
[2016-10-01] MEDS ORDERED: MAG30ORA PO (19:40)
--- NOTE | 2016-10-01 20:18 | NUR ---
transported to tele bed 320-2 via [facility] protocol, no incident noted. Endorsed care to RN.
[2016-10-01 20:28] LABS: LYMPHOCYTES % (MANUAL) 19 % (16-48); MONOCYTES % (MANUAL) 9 % (0-11.0); NEUTROPHILS % (MANUAL) 72 (42-76); PLATELET ESTIMATE DECREASED
[2016-10-01 20:45] VITALS: BP 158/66
--- NOTE | 2016-10-01 20:45 | NUR ---
TELE/RN NOTES RECEIVED NEW ADMITTED PATIENT FROM ER IS A 75 YOFEMALE FROM [facility]-TERM WHO HADACUTE SYNCOPE EPISODE AND HYPOGLYCEMIC WITH BLOOD SUGAR LEVEL OF 58. PATIENT IS ALERT, ORIENTED X2. CAN VERBALIZE NEEDS. NO S/S OF SOB OR DISTRESS. 2 L OF OXYGEN VIA NC FOR COMFORT MEASURES.IV SITE PERIPHERAL ON RIGHT AC W/ NO S/S OF INFILTRATION. BED LOCKED AND SEMI HERNANDEZ POSITION. WILL MONITOR FOR ANY S/S OF HYPO/HYPERGLYCEMIA EPISODE. CARRIED OUT ORDERS. SKIN INTACT W/ NOTED REDNESS ON SACRAL AREA.
[2016-10-01] MEDS ORDERED: ACETAMINOPHEN 325 MG TABLET PO PRN (22:00)
[2016-10-01] MEDS ORDERED: CLONIDINE HCL 0.1 MG TABLET PO PRN (22:00)
[2016-10-01] MEDS ORDERED: ONDANSETRON HCL/PF 4 MG/2 ML VIAL IV PRN (22:00)
[2016-10-01] MEDS ORDERED: IV D5/0.45 NACL 1,000 ML IV ONE ×2 (22:00→22:58)
[2016-10-01 22:35] VITALS: BP 158/66
[2016-10-01] MEDS ORDERED: IV SET PRIMARY PUMP SET 1 EA INFUS.SET MC ONE (22:58)
[2016-10-01] MEDS: BLOOD SUGAR DIAGNOSTIC 1 EACH STRIP IN SCH (23:05)
[2016-10-02] VITALS (9 sets, daily range): BP systolic 113–158; BP diastolic 50–65
--- NOTE | 2016-10-02 05:36 | NUR ---
MS/RN NOTES PATIENT IN BED, HOB ELEVATE. NO S/S OF SOB OR DISTRESS. REPOSTION FOR COMFORT. ATTEND TO NEEDS AT ALL TIMESWILL CONTINUE TO MONITOR.
--- NOTE | 2016-10-02 06:40 | NUR ---
TELE/RN NOTES PATIENT IN BED, ABLE TO SLEEP DUEING THE NIGHT, WITH OXYGEN VIA NC 2L FOR COMFORT MEASURES. IV SITE ON LEFT AC PATENCY CHECK,WILL CONTINUE TO MONITOR AND ENDORSE TO AM RN REGARDKNG PLAN OFCAN
--- NOTE | 2016-10-02 07:30 | NUR ---
CLINICAL ATHLETIC INSTRUCTOR AM NOTES PT IN BED, ASLEEP, AROUSES TO NAME AND TOUCH, ALERT, ORIENTED X2. CAN VERBALIZE NEEDS. ON 2L O2 NC, NO SOB, NAD, RESPIRATION UNLABORED, RFA 20G IV WITH D5 1/2 NS AT 75 ML/HR RUNNING. SITE CLEAR, NPO FOR NOW. NO S/S OF HYPO/HYPERGLYCEMIA, SEE NURSING FLOWSHEET FOR SKIN ISSUES, BEDBOUND BUT INDEPENDENT OF BED MOBILITY. BED LOW LOCKED, SR UP X 2, CALL LIGHT WITHIN REACH, WILL CONT TO MONITOR.
--- NOTE | 2016-10-02 07:45 | NUR ---
HEALTH RESEARCHER NOTES ACCUCHECK DONE. BS 80 MG/DL. NO INSULIN COVERAGE GIVEN. DR. CATHERINE AWARE.
[2016-10-02] MEDS: BLOOD SUGAR DIAGNOSTIC 1 EACH STRIP IN SCH ×4 (07:46→21:28)
[2016-10-02 08:00] LABS: CALCIUM, SERUM 7.6 mg/dL (8.5-10.1); CREATININE 1.3 mg/dL (0.6-1.3); POTASSIUM 4.6 mmol/L (3.5-5.1)
[2016-10-02] MEDS ORDERED: MAG HYDROX/AL HYDROX/SIMETH 30 ML UDC PO PRN (08:00)
[2016-10-02] MEDS ORDERED: CLONIDINE HCL 0.1 MG TABLET PO PRN (08:00)
[2016-10-02 08:04] LABS: BASOPHILS % (AUTO) 0.4 % (0.0-2.0); EOSINOPHILS % (AUTO) 0.6 % (0.0-6.0); HEMATOCRIT 28 % (33-45); HEMOGLOBIN 8.5 g/dL (11.5-14.8); LYMPHOCYTES # (AUTO) 1.5 /CMM (0.8-4.8); LYMPHOCYTES % (AUTO) 29.6 % (20.0-44.0); MEAN CORPUSCULAR HEMOGLOBIN 21 PG (26.0-33.0); MEAN CORPUSCULAR HGB CONC 30 g/dl (31.0-36.0); MEAN CORPUSCULAR VOLUME 70 fL (82-100); MONOCYTES # (AUTO) 0.9 /CMM (0.1-1.30); NEUTROPHILS # (AUTO) 2.6 /CMM (1.8-8.9); NEUTROPHILS % (AUTO) 51.4 % (43.0-81.0); PLATELET COUNT (AUTO) 121 /CMM (150-450); RDW COEFFICIENT OF VARIATION 16.5 (11.5-15.0); RED BLOOD CELL COUNT(AUTO) 4.05 MIL/uL (4.0-5.2)
[2016-10-02 08:10] LABS: TROPONIN I 0.107 ng/mL (0.00-0.056)
[2016-10-02] MEDS: ASPIRIN 81 MG TAB.CHEW PO SCH (08:17)
[2016-10-02] MEDS: PANTOPRAZOLE 40 MG TABLET.DR PO SCH (08:17)
[2016-10-02 08:42] LABS: MAGNESIUM 1.9 mg/dL (1.8-2.4); PHOSPHORUS 4.3 mg/dL (2.5-4.9)
[2016-10-02 09:01] LABS: THYROID STIMULATING HORMONE 0.537 uIU/mL (0.358-3.74)
--- NOTE | 2016-10-02 09:30 | NUR ---
MS RN NOTES ADMINISTERED DUE MEDS.
[2016-10-02] MEDS: DIVALPROEX SODIUM 250 MG TABLET.DR PO SCH ×2 (09:41→17:11)
[2016-10-02] MEDS: OLANZAPINE 5 MG TABLET PO SCH ×2 (09:41→17:12)
[2016-10-02] MEDS: DOCUSATE SODIUM 100 MG CAPSULE PO SCH (09:42)
[2016-10-02] MEDS: METHIMAZOLE (5MG) 5 MG TABLET PO SCH (09:42)
[2016-10-02] MEDS: clonazePAM 0.5 MG TABLET PO SCH ×2 (09:42→17:11)
[2016-10-02] MEDS: CALCIUM CARB 600MG /VIT D 1 EACH TABLET PO SCH (09:42)
[2016-10-02] MEDS: CARVEDILOL 6.25 MG TABLET PO SCH ×2 (09:43→17:11)
[2016-10-02] MEDS: LISINOPRIL (10MG) 10 MG TABLET PO SCH (09:43)
[2016-10-02] MEDS: IV D5/0.45 NACL 1,000 ML IV PRN ×2 (09:45→23:36)
[2016-10-02] MEDS: FLUTICASONE/SALMETEROL DISKUS IH SCH ×2 (09:45→17:17)
--- NOTE | 2016-10-02 09:45 | NUR ---
MS RN NOTES STARTED BAG #1 D5 1/2 NS AT 125 ML/HR PER DR. CATHERINE.
[2016-10-02 11:47] LABS: LYMPHOCYTES % (MANUAL) 28 % (16-48); MONOCYTES % (MANUAL) 16 % (0-11.0); NEUTROPHILS % (MANUAL) 56 (42-76)
[2016-10-02 11:48] LABS: ANISOCYTOSIS 1+; HYPOCHROMASIA 2+; OVALOCYTES 2+; PLATELET ESTIMATE DECREASED
--- NOTE | 2016-10-02 11:53 | NUR ---
MS RN NOTES DR. BRIGGS AT BEDSIDE EARLIER. ACCUCHECK. BS 198 MG/DL. ADMINISTERED 2 UNITS HUM R PER SLIDING SCALE.
[2016-10-02] MEDS: INSULIN REGULAR, HUMAN 100 UNIT/ML 3 ML VIAL SQ PRN ×3 (11:55→21:36)
[2016-10-02] MEDS: ALBUTEROL FS 2.5 MG/3 ML VIAL.NEB NEB PRN (13:19)
[2016-10-02] MEDS: IPRATROPIUM NEB FS 0.5 MG/2.5 ML AMPUL.NEB NEB SCH ×2 (13:20→20:28)
[2016-10-02] MEDS: ACETAMINOPHEN 325 MG TABLET PO PRN (15:24)
--- NOTE | 2016-10-02 15:30 | NUR ---
MS RN NOTES TEMP 101. TYLENOL 650MG AND COOLING MEASURES ADMINISTERED.
--- NOTE | 2016-10-02 16:30 | NUR ---
MS RN NOTES TEMP RECHECKED, DOWN TO 98.8
[2016-10-02] MEDS: FERROUS SULFATE (325 MG) 325 MG/TAB TABLET PO SCH (17:11)
--- NOTE | 2016-10-02 17:23 | NUR ---
MS RN NOTES ACCUCHECK. BS 198 MG/DL. ADMINISTERED 2 UNITS HUM R PER SLIDING SCALE.
--- NOTE | 2016-10-02 18:34 | NUR ---
MS RN CLOSING NOTES PT RESTING IN BED, ALERT, ORIENTED X2. CAN VERBALIZE NEEDS. ON 2L O2 NC, NO SOB, NAD, RESPIRATION UNLABORED, RFA 22G IV WITH D5 1/2 NS AT 125 ML/HR RUNNING. SITE CLEAR, NO S/S OF HYPO/HYPERGLYCEMIA, BEDBOUND BUT INDEPENDENT OF BED MOBILITY. BED LOW LOCKED, SR UP X 2, CALL LIGHT WITHIN REACH, ALL NEEDS MET, WILL ENDORSE TO NEXT SHIFT FOR HAVEN.
--- NOTE | 2016-10-02 19:20 | NUR ---
MS RN NOTES RECEIVED ON BED SLEEPING,AROUSABLE TO VERBAL STIMULI.PRESENT IVF IN PROGRESS AT 125ML/HR RATE X 2 LITERS.FIRST BOTTLE IN PROGRESS.O2 IN USED 2L/NC,O2 SAT WNL. CALL LIGHT IN PROGRESS.NEEDS ANTICIPATED.
[2016-10-02] MEDS: MONTELUKAST SODIUM (10MG) 10 MG TABLET PO SCH (21:27)
[2016-10-02] MEDS: GABAPENTIN 100 MG CAPSULE PO SCH (21:28)
[2016-10-02] MEDS: INSULIN DETEMIR 100 UNIT/ML CARTRIDGE SQ SCH (21:34)
--- NOTE | 2016-10-02 21:45 | NUR ---
MS RN NOTES ACCU-CHECK BLOOD SUGAR CHECK 199,COVERED WITH 2 HUMULIN R,ALONG WITH LEVEMIR 9 UNITS SCHEDULED.SNACKS PROVIDED AT BEDSIDE.
[2016-10-03] MEDS: IPRATROPIUM NEB FS 0.5 MG/2.5 ML AMPUL.NEB NEB SCH ×4 (00:55→20:18)
--- NOTE | 2016-10-03 04:00 | NUR ---
MS RN NOTES IV ACCIDENTALLY PULLED OUTMNEW SALINE LOCK PLACE ON LEFT FORE ARM #22 BY MADI EASON.
--- NOTE | 2016-10-03 05:30 | NUR ---
MS RN NOTES ACCU-CHECK BLOOD SUGAR CHECK 104,NO INSULIN COVERAGE.DUE PO MEDS GIVEN.
[2016-10-03] MEDS: BLOOD SUGAR DIAGNOSTIC 1 EACH STRIP IN SCH ×4 (05:41→22:30)
--- NOTE | 2016-10-03 05:45 | NUR ---
MS RN NOTES NOTED AUDIBLE WHEEZING THIS TIME.RT AT BEDSIDE DOING EKG.WILL ADMINISTER BREATHING PRN ORDER.IN NO ACUTE DISTRESS.CALL LIGHT IN REACH,NEEDS ATTENDED.CONTINUE HOSPITALIZATION PER PLAN.WILL ENDORSE TO DAYNURSE FOR HAVEN.
[2016-10-03] MEDS: DIVALPROEX SODIUM 250 MG TABLET.DR PO SCH ×2 (05:46→16:39)
[2016-10-03] MEDS: OLANZAPINE 5 MG TABLET PO SCH ×2 (05:50→16:39)
[2016-10-03] MEDS: ALBUTEROL FS 2.5 MG/3 ML VIAL.NEB NEB PRN (05:52)
[2016-10-03 06:59] LABS: HEMOGLOBIN 9.6 g/dL (11.5-14.8); MEAN CORPUSCULAR HGB CONC 30 g/dl (31.0-36.0); WHITE BLOOD COUNT (AUTO) 8.8 K/uL (4.3-11.0)
[2016-10-03 07:01] LABS: HEMATOCRIT 32 % (33-45); MEAN CORPUSCULAR HEMOGLOBIN 21 PG (26.0-33.0)
[2016-10-03 07:04] LABS: MEAN CORPUSCULAR VOLUME 71 fL (82-100); PLATELET COUNT (AUTO) 80 /CMM (150-450); RED BLOOD CELL COUNT(AUTO) 4.54 MIL/uL (4.0-5.2)
[2016-10-03 07:05] LABS: EOSINOPHILS % (AUTO) 0.5 % (0.0-6.0); LYMPHOCYTES # (AUTO) 1.1 /CMM (0.8-4.8); NEUTROPHILS # (AUTO) 6.7 /CMM (1.8-8.9); NEUTROPHILS % (AUTO) 75.5 % (43.0-81.0); RDW COEFFICIENT OF VARIATION 16.6 (11.5-15.0)
[2016-10-03 07:13] LABS: ALBUMIN 2.7 g/dL (3.4-5.0); BILIRUBIN,TOTAL 0.1 mg/dL (0.2-1.0); CALCIUM, SERUM 7.8 mg/dL (8.5-10.1); CREATININE 1.3 mg/dL (0.6-1.3); MAGNESIUM 1.8 mg/dL (1.8-2.4); PHOSPHORUS 3.3 mg/dL (2.5-4.9); POTASSIUM 5.2 mmol/L (3.5-5.1); TOTAL PROTEIN, SERUM 5.9 g/dL (6.4-8.2); TROPONIN I 0.033 ng/mL (0.00-0.056)
--- NOTE | 2016-10-03 07:30 | NUR ---
MS RN AM NOTES PT IN BED, ASLEEP, AROUSES TO NAME AND TOUCH, ALERT, ORIENTED X2. CAN VERBALIZE NEEDS. ON 2L O2 NC, NO SOB, NAD, RESPIRATION UNLABORED, LFA 22G IV WITH D5 1/2 NS AT 75 ML/HR RUNNING. KAILEE G22 FLUSHES WELL, BOTH SITES CLEAR. ON CCHO/1800 ADA DIET. NO S/S OF HYPO/HYPERGLYCEMIA, SEE NURSING FLOWSHEET FOR SKIN ISSUES, BEDBOUND BUT INDEPENDENT OF BED MOBILITY. BED LOW LOCKED, SR UP X 2, CALL LIGHT WITHIN REACH, WILL CONT TO MONITOR.
[2016-10-03 08:00] VITALS: BP 140/83
[2016-10-03] MEDS: PANTOPRAZOLE 40 MG TABLET.DR PO SCH (08:35)
[2016-10-03] MEDS: METHIMAZOLE (5MG) 5 MG TABLET PO SCH (08:35)
[2016-10-03] MEDS: DOCUSATE SODIUM 100 MG CAPSULE PO SCH (08:35)
[2016-10-03] MEDS: FERROUS SULFATE (325 MG) 325 MG/TAB TABLET PO SCH ×2 (08:35→16:39)
[2016-10-03] MEDS: CALCIUM CARB 600MG /VIT D 1 EACH TABLET PO SCH (08:35)
[2016-10-03] MEDS: ASPIRIN 81 MG TAB.CHEW PO SCH (08:36)
[2016-10-03] MEDS: CARVEDILOL 6.25 MG TABLET PO SCH ×2 (08:36→16:40)
[2016-10-03] MEDS: FLUTICASONE/SALMETEROL DISKUS IH SCH ×2 (08:36→16:50)
[2016-10-03] MEDS: LISINOPRIL (10MG) 10 MG TABLET PO SCH (08:36)
[2016-10-03] MEDS: clonazePAM 0.5 MG TABLET PO SCH ×2 (08:36→16:39)
[2016-10-03 09:06] LABS: LYMPHOCYTES % (MANUAL) 14 % (16-48); MONOCYTES % (MANUAL) 8 % (0-11.0); NEUTROPHILS % (MANUAL) 78 (42-76)
[2016-10-03 09:07] LABS: ANISOCYTOSIS 1+; HYPOCHROMASIA 1+; OVALOCYTES 1+; PLATELET ESTIMATE DECREASED; TEAR DROP CELLS 1+
--- NOTE | 2016-10-03 09:30 | NUR ---
MS RN NOTES ADMINISTERED DUE MEDS.
[2016-10-03] MEDS ORDERED: FUROSEMIDE 20 MG/2 ML VIAL IV ONE (10:00)
--- NOTE | 2016-10-03 11:26 | NUR ---
MS RN NOTES ACCUCHECK. BS 130 MG/DL. NO INSULIN COVERAGE GIVEN.
[2016-10-03 16:00] VITALS: BP 154/66
[2016-10-03] MEDS: ACETAMINOPHEN 325 MG TABLET PO PRN (16:42)
[2016-10-03] MEDS: INSULIN REGULAR, HUMAN 100 UNIT/ML 3 ML VIAL SQ PRN ×2 (16:53→22:33)
--- NOTE | 2016-10-03 17:00 | NUR ---
MS RN NOTES ACCUCHECK. BS 200 MG/DL. ADMINISTERED 2 UNITS HUM R PER SLIDING SCALE. PATIENT FEBRILE 101.4. ADMINISTERED TYLENOL 650 MG AND COOLING MEASURES APPLIED. DR. BRIGGS NOTIFIED. ORDERED FOR CXR .
--- NOTE | 2016-10-03 17:29 | NUR ---
MS RN NOTES RESPIRATORY THERAPIST AT BEDSIDE TO SUCTION PATIENT.
--- NOTE | 2016-10-03 17:43 | NUR ---
MS BARRAZA NOTES TEMPERATURE RECHECKED NOW AT 100.0 Addendum: 10/03/16 at 1746 by ANDRIY SOTOMAYOR RN ADDENDUM: DR. BRIGGS NOTIFIED OF UPDATE.
--- NOTE | 2016-10-03 17:57 | NUR ---
MS RN NOTES PER DR. BRIGGS TO START ZOSYN IV.
[2016-10-03 18:00] VITALS: BP 154/66
[2016-10-03] MEDS ORDERED: SECONDARY IV SET 1 EA INFUS.SET MC ONE ×3 (18:29→22:57)
[2016-10-03] MEDS ORDERED: IBUPROFEN 200 MG TABLET PO PRN (18:30)
[2016-10-03] MEDS: PIPERACILLIN /TAZOBACTAM 3.375 G in IV D5W 50 ML IV SCH ×2 (18:33→23:03)
--- NOTE | 2016-10-03 18:33 | NUR ---
MS RN NOTES DR. BRIGGS NOTIFIED, TEMP 103.1. NEW ORDER MOTRIN 400 MG Q6H PRN FOR TEMP 100.6 AND ABOVE. GIVEN 1826. STARTED ZOSYN IV.
--- NOTE | 2016-10-03 19:26 | NUR ---
MS RN CLOSING NOTES PT RESTING IN BED, LETHARGIC, AROUSES TO NAME AND TOUCH, ON 2L O2 NC, NO SOB, NAD, RESPIRATION UNLABORED, LFA 22G IV WITH ZOSYN RUNNING, IVHL TO KAILEE G22 FLUSHES WELL, BOTH SITES CLEAR, NO S/S OF HYPO/HYPERGLYCEMIA, BEDBOUND BUT INDEPENDENT OF BED MOBILITY. BED LOW LOCKED, SR UP X 2, CALL LIGHT WITHIN REACH, ALL NEEDS MET, WILL ENDORSE TO NEXT SHIFT FOR HAVEN.
--- NOTE | 2016-10-03 20:00 | NUR ---
COCOA POWDER MIXER OPERATOR.INITIAL NOTES RECEIVED REPORT FROM AM NURSE ANDRIY Rush CHECKED PT SHE'S RESTING COMFORTABLY IN BED WITHOUT ANY ACUTE DISTRESS NOTED, WITH O2 AT 3 LITERS VIA NASAL CANULA. RESPIRATION EVEN AND UNLABORED AND PER AM NURSE PT HAD FEVER OF 103 BEFORE WENT DOWN TO 100. SKIN WARM TO TOUCH AND PT STILL ON COLD COMPRESS. WE CHECKED VITAL SIGNS AGAIN AND CAME OUT BP 123/61, PULSE 87, RESP 16 TEMP 99.6 AND O2 SAT 85. RT DOING ROUNDS AT THIS TIME AND CHECKED IT AGAIN STILL THE SAME , THEN WE PUT PT IN NON-RE BREATHER UP TO 90 WITH [address] BRIGGS AND ABG ORDERED. CHARGES NURSE AYDEE ALSO AWARE.
--- NOTE | 2016-10-03 20:50 | NUR ---
PT WAS SAT 80-82. BILATERAL DIM BREATH SOUNDS. PUT PT ON NONREBREATHER @ 15L. SAT AT 92% ABG WAS DONE. PT TRANSFERRED TO ICU.
--- NOTE | 2016-10-03 20:56 | NUR ---
HOUSING MANAGEMENT REPRESENTATIVE /NOTES BLOOD SUGAR ALSO CHECKED 294, DR BRIGGS CALLED BACK AND TOLD THE CHEST X-RAY RESULT THAT HE ORDERED EARLIER. STILL WAITING FOR ABG RESULT . PT STILL ON NON-REBREATHER MASK O2 SAT 100 %.
[2016-10-03 21:12] LABS: ABG BASE EXCESS 5.1 mmol/L; ABG OXYGEN SATURATION 95.5 % (92.0-98.5); ABG PCO2 68.3 mmHg (35.0-45.0); ABG PH 7.301 (7.350-7.450); ABG PO2 88.7 mmHg (75.0-100.0); ABG TOTAL HEMOGLOBIN 10.2 G/dL (12.0-16.0); COHb 1.1 % (0.5-1.5); MetHb 0.7 % (0.0-1.5); O2Hb 93.8 % (94.0-97.0); SITE, ABG Right Radial
--- NOTE | 2016-10-03 21:30 | NUR ---
DISTRICT SCOUT EXECUTIVE/NOTES CALLED DR BRIGGS TO TOLD HIM THE RESULT OF ABG HE ORDERED TO TRANSFERRED THE PT TO ICU AND PUT ON BI-PAP 03/29. CHARGES NURSE AYDEE AWARE AND CALLED SUPER FOR ICU BED. STILL WAITING FOR ICU TO CALLED BACK IF ROOM IS READY. PT RESTING WITH EYES CLOSED BUT AROUSES TO TOUCH, SKIN WARM TO TOUCH. O2 SAT 100 % IN10 LITERS.
[2016-10-03] MEDS: GABAPENTIN 100 MG CAPSULE PO SCH (22:00)
[2016-10-03] MEDS: MONTELUKAST SODIUM (10MG) 10 MG TABLET PO SCH (22:00)
[2016-10-03] MEDS: INSULIN DETEMIR 100 UNIT/ML CARTRIDGE SQ SCH (22:31)
--- NOTE | 2016-10-03 22:45 | NUR ---
ETHNOLOGY TEACHER/NOTES BLOOD SUGAR CHECKED DONE 282, 9 UNITS OF LEVEMIR GIVEN WELL 6 UNITS OF REGULAR INSULIN CAMMY SQ ORDERED. NO SIGNS OF HYPER GLYCEMIA NOTED. GAVE REPORT FROM VETO/ICU NURSE FOR CONTINUITY OF CARE. TRANSFERRED PATIENT FROM ICU ON ACLS PROTOCOL .
--- NOTE | 2016-10-03 22:45 | NUR ---
ICU/RN- RECEIVED PT. FROM 3D[facility] MS BY BED PER ACLS PROTOCOL. NURSING FOCUS:ALTERED RESPIRATORY STATUS R/T RESPIRATORY FAILURE.ROUTINE ICU ADMISSION CARE INITIATED. PT. IS LETHARGIC, AROUSABLE, CONFUSED, IMMEDIATELY WAS PLACED ON BIPAP BY RT Hernandez YANG, W/ THE FOLLOWING SETTINGS: I/E-20/5, RATE-12, FIO2-40%. SATS.-100%. EKG -SR W/ BP-112/48. AFEBRILE. NO S/S OF DISTRESS OR PAIN USING THE FLACC PAIN SCALE.
[2016-10-03] MEDS ORDERED: IV SET PRIMARY PUMP SET 1 EA INFUS.SET MC ONE (22:57)
--- NOTE | 2016-10-03 23:00 | NUR ---
ICU/RN-IVF STARTED D5 1/2 NS AT 125 ML/HR VIA LEFT FOREARM.
[2016-10-03] MEDS: IV D5/0.45 NACL 1,000 ML IV PRN (23:02)
[2016-10-03 23:06] VITALS: BP 116/50
--- NOTE | 2016-10-03 23:20 | NUR ---
ICU/RN- PT. STARTED DESATURATING TO 88-89%, PT. NOT IN ANY DISTRESS, FIO2 WAS INCREASED BY RT TREY TO 60%, SATS.-93-94%. WILL CONTINUE TO MONITOR CLOSELY AND WILL REFER ACCORDINGLY PER PROTOCOL.
[2016-10-04] VITALS (75 sets, daily range): BP systolic 60–134; BP diastolic 28–77
[2016-10-04] MEDS: ALBUTEROL FS 2.5 MG/3 ML VIAL.NEB NEB PRN ×3 (00:56→13:08)
[2016-10-04] MEDS: IPRATROPIUM NEB FS 0.5 MG/2.5 ML AMPUL.NEB NEB SCH ×4 (00:56→19:34)
[2016-10-04 01:32] LABS: ABG OXYGEN SATURATION 92.9 % (92.0-98.5); ABG PCO2 58.5 mmHg (35.0-45.0); ABG PH 7.313 (7.350-7.450); ABG PO2 73.1 mmHg (75.0-100.0); AaDO2 290.4 mmHg; COHb 1.5 % (0.5-1.5); MetHb 0.7 % (0.0-1.5); O2Hb 90.9 % (94.0-97.0)
--- NOTE | 2016-10-04 02:00 | NUR ---
ICU/RN-ABGS DONE BY RT,W/ BETTER RESULTS.DOCUMENTED. PH-7.31,PCO2-58.5,PO2-73.1,HCO3-29.
[2016-10-04 05:55] LABS: ALBUMIN 2.4 g/dL (3.4-5.0); BILIRUBIN,TOTAL 0.3 mg/dL (0.2-1.0); CALCIUM, SERUM 7.4 mg/dL (8.5-10.1); MAGNESIUM 1.6 mg/dL (1.8-2.4); PHOSPHORUS 4.6 mg/dL (2.5-4.9); POTASSIUM 4.7 mmol/L (3.5-5.1); TOTAL PROTEIN, SERUM 5.7 g/dL (6.4-8.2)
[2016-10-04] MEDS: PIPERACILLIN /TAZOBACTAM 3.375 G in IV D5W 50 ML IV SCH ×3 (06:33→17:08)
[2016-10-04] MEDS: DIVALPROEX SODIUM 250 MG TABLET.DR PO SCH ×3 (07:00→21:29)
[2016-10-04] MEDS: OLANZAPINE 5 MG TABLET PO SCH ×2 (07:00→16:18)
--- NOTE | 2016-10-04 07:20 | NUR ---
NT SUCTIONED TO OBTAIN LARGE AMOUNT OF THICK NUNEZ SECRETIONS. TOLERATED WELL.
--- NOTE | 2016-10-04 07:20 | NUR ---
RN INITIAL NOTES PT IN BED, A/O X1, LETHARGIC, FORGETFUL, HOB ELEVATED 35 DEGREES, ON BIPAP 20/5, 12, 60%, TOLERATING WELL. ON TELE MONITOR WITH SR 80'S. IV ON RAC 22G, AND LFA 22G, RUNNING D5 1/2 NS @ 125 CC/HR, TOLERATING WELL, CDI, NO SIGNS OF INFECTION/INFILTRATION. PT MAY NEED A BIGGER IV. NO RESTRAINTS. PT HAS SACRAL REDNESS, AND BUE BRUISING, DRESSINGS CDI. CALL LIGHT WITHIN EASY REACH, SAFETY MEASURES MAINTAINED, WILL CONTINUE TO MONITOR AND FOLLOW MD ORDERS. PT IN OVERALL STABLE CONDITION.
[2016-10-04] MEDS: PANTOPRAZOLE 40 MG TABLET.DR PO SCH (07:30)
--- NOTE | 2016-10-04 07:45 | NUR ---
RN NOTES BIPAP SETTING CHANGED FROM 60% TO 50%, TOLERATING WELL, WILL CONTINUE TO MONITOR.
[2016-10-04] MEDS: METHIMAZOLE (5MG) 5 MG TABLET PO SCH (08:00)
[2016-10-04] MEDS: BLOOD SUGAR DIAGNOSTIC 1 EACH STRIP IN SCH ×3 (08:13→17:08)
[2016-10-04] MEDS: DOCUSATE SODIUM 100 MG CAPSULE PO SCH (08:17)
[2016-10-04] MEDS: FLUTICASONE/SALMETEROL DISKUS IH SCH ×2 (08:17→16:17)
[2016-10-04] MEDS: CALCIUM CARB 600MG /VIT D 1 EACH TABLET PO SCH (08:17)
[2016-10-04] MEDS: CARVEDILOL 6.25 MG TABLET PO SCH ×2 (08:17→16:17)
[2016-10-04] MEDS: ASPIRIN 81 MG TAB.CHEW PO SCH (08:17)
[2016-10-04] MEDS ORDERED: IV NS 0.9% 1,000 ML ONE (08:19)
[2016-10-04] MEDS: FERROUS SULFATE (325 MG) 325 MG/TAB TABLET PO SCH ×2 (08:23→16:18)
[2016-10-04] MEDS: clonazePAM 0.5 MG TABLET PO SCH ×3 (08:23→21:28)
[2016-10-04] MEDS ORDERED: DOPamine 400 MG in IV D5W 250 ML IV PRN (08:30)
--- NOTE | 2016-10-04 08:30 | NUR ---
RN NOTES PICC LINE INSERTED. TOLERATED WELL
--- NOTE | 2016-10-04 08:30 | NUR ---
LEAF COVERER: CARDIO NOTED PTS BP LOW 63/33 MULTIPLE BP'S TAKEN AUTOMATICALLY IN DIFFERENT EXTREMITIES, SEE FLOW SHEET BP CONTINUES TO READ LOW. MANUAL BP TAKE 60/30. DR. CATHERINE AT BEDSIDE NOTIFIED REGARDING LOW BP. ORDERS GIVEN TO GIVE ONE LITER OF NS BOLUS AND START PT ON DOPAMINE DRIP. ORDERS ENTERED. PHARMACY CALLED. ORDERS GIVEN TO START PICC LINE. COLTON BARRAZA NOTIFIED. WILL CONTINUE TO MONITOR CLOSELY AND F/U WITH PHARMACY
[2016-10-04 08:43] LABS: ABG BASE EXCESS 2.2 mmol/L; ABG OXYGEN SATURATION 93.2 % (92.0-98.5); ABG PCO2 57.9 mmHg (35.0-45.0); ABG PH 7.318 (7.350-7.450); ABG PO2 71.2 mmHg (75.0-100.0); ABG TOTAL HEMOGLOBIN 9.5 G/dL (12.0-16.0); AaDO2 220.2 mmHg; COHb 1.2 % (0.5-1.5); MetHb 0.6 % (0.0-1.5); O2Hb 91.5 % (94.0-97.0); SITE, ABG Right Brachial; VENT MODE, BG BIPAP20/5
[2016-10-04] MEDS ORDERED: IV SET PRIMARY PUMP SET 1 EA INFUS.SET MC ONE (08:56)
--- NOTE | 2016-10-04 09:18 | NUR ---
RN NOTES SEEN BY DR. YAP, CONTINUE WITH CARE. BIPAP SETTING CHANGED FROM 10/11 TO 12/11.
[2016-10-04] MEDS: IV NS 0.9% 1,000 ML IV PRN ×2 (09:35→20:26)
--- NOTE | 2016-10-04 10:55 | NUR ---
NT SUCTIONED TO OBTAIN LARGE AMOUNT OF THICK NUNEZ/BLOOD TINGED SECRETIONS.
[2016-10-04] MEDS ORDERED: Magnesium 1GM/D5W 100ML PREMIX 100 ML IV SCH (12:26)
[2016-10-04] MEDS ORDERED: DEXTROSE 50%-WATER 50 ML DISP.SYRIN IV PRN (13:30)
--- NOTE | 2016-10-04 19:04 | NUR ---
RN CLOSING NOTES PT IN STABLE CONDITION, ALL MD ORDERS CARRIED OUT, APPLIED BILATERAL SOFT WRIST RESTRAINTS D/T PT CONTINUOUSLY REMOVING BIPAP EVEN AFTER EXPLAINING THE PROS OF KEEPING IT ON; PT IS FORGETFUL. ALL IV'S CDI, NO SIGNS OF INFECTION/INFILTRATION. VSS, AFEBRILE. TOLERATING BIPAP WELL, NO SOB. DOPAMINE RUNNING ON 3 MCG. CALL LIGHT WITHIN EASY REACH, SAFETY MEASURES MAINTAINED, REPORT GIVEN TO NIGHT NURSE FUNMI FOR HAVEN. PT IN OVERALL STABLE CONDITION.
[2016-10-04] MEDS: ALBUTEROL FS 2.5 MG/3 ML VIAL.NEB NEB SCH (19:34)
--- NOTE | 2016-10-04 19:35 | NUR ---
ICU/RN RECEIVED PT AWAKE ALERT DISORIENTED TO PLACE AND TIME,RE-ORIENTED PT CONFUSED.ON BIPAP 40% W/ SAT 99-100%.ON DOPAMINE DRIP AT 3MCG/KG/MIN. W/ SBP OF 109MM/HG.
--- NOTE | 2016-10-04 21:02 | NUR ---
ICU/RN PT ABLE TO LOOSEN CONNECTION FROM BIPAP,INSTRUCTED PT. IMPORTANCE OF BIPAP AT THIS TIME.PT UNCOOPERATIVE,TUGGING AT RESTRAINTS AND THROW AWAY PILLOW ON THE GROUND,FURTHER INSTRUCTIONS GIVEN.
[2016-10-04] MEDS: GABAPENTIN 100 MG CAPSULE PO SCH (22:00)
[2016-10-04] MEDS: INSULIN DETEMIR 100 UNIT/ML CARTRIDGE SQ SCH (22:00)
[2016-10-04] MEDS: MONTELUKAST SODIUM (10MG) 10 MG TABLET PO SCH (22:00)
[2016-10-05] VITALS (40 sets, daily range): BP systolic 92–155; BP diastolic 39–72
[2016-10-05] MEDS: PIPERACILLIN /TAZOBACTAM 3.375 G in IV D5W 50 ML IV SCH ×4 (00:35→17:14)
[2016-10-05] MEDS: ALBUTEROL FS 2.5 MG/3 ML VIAL.NEB NEB SCH ×4 (00:53→19:34)
[2016-10-05] MEDS: IPRATROPIUM NEB FS 0.5 MG/2.5 ML AMPUL.NEB NEB SCH ×4 (00:53→19:34)
[2016-10-05 05:25] LABS: BASOPHILS % (AUTO) 0.2 % (0.0-2.0); HEMATOCRIT 28 % (33-45); HEMOGLOBIN 8.3 g/dL (11.5-14.8); LYMPHOCYTES # (AUTO) 0.9 /CMM (0.8-4.8); LYMPHOCYTES % (AUTO) 9.3 % (20.0-44.0); MEAN CORPUSCULAR HEMOGLOBIN 21 PG (26.0-33.0); MEAN CORPUSCULAR HGB CONC 30 g/dl (31.0-36.0); MEAN CORPUSCULAR VOLUME 70 fL (82-100); MONOCYTES # (AUTO) 0.4 /CMM (0.1-1.30); MONOCYTES % (AUTO) 3.6 % (2.0-12.0); NEUTROPHILS # (AUTO) 8.5 /CMM (1.8-8.9); NEUTROPHILS % (AUTO) 86.9 % (43.0-81.0); PLATELET COUNT (AUTO) 92 /CMM (150-450); RDW COEFFICIENT OF VARIATION 16.4 (11.5-15.0); RED BLOOD CELL COUNT(AUTO) 3.94 MIL/uL (4.0-5.2); WHITE BLOOD COUNT (AUTO) 9.8 K/uL (4.3-11.0)
[2016-10-05 05:43] LABS: ALBUMIN 2.1 g/dL (3.4-5.0); BILIRUBIN,TOTAL 0.2 mg/dL (0.2-1.0); CREATININE 1.6 mg/dL (0.6-1.3); PHOSPHORUS 2.9 mg/dL (2.5-4.9); POTASSIUM 4.2 mmol/L (3.5-5.1); TOTAL PROTEIN, SERUM 5.5 g/dL (6.4-8.2)
[2016-10-05] MEDS: BLOOD SUGAR DIAGNOSTIC 1 EACH STRIP IN SCH ×4 (06:02→17:14)
[2016-10-05] MEDS: OLANZAPINE 5 MG TABLET PO SCH ×2 (07:00→16:12)
[2016-10-05] MEDS: DIVALPROEX SODIUM 250 MG TABLET.DR PO SCH ×2 (07:00→16:12)
[2016-10-05 07:20] LABS: BAND % (MANUAL) 10 % (0.0-5.0); LYMPHOCYTES % (MANUAL) 9 % (16-48); MONOCYTES % (MANUAL) 2 % (0-11.0); NEUTROPHILS % (MANUAL) 79 (42-76); PLATELET ESTIMATE DECREASED
[2016-10-05 07:21] LABS: ANISOCYTOSIS 1+; HYPOCHROMASIA 1+; OVALOCYTES 1+; TEAR DROP CELLS 1+
[2016-10-05] MEDS: PANTOPRAZOLE 40 MG TABLET.DR PO SCH (07:30)
[2016-10-05] MEDS: METHIMAZOLE (5MG) 5 MG TABLET PO SCH (08:00)
--- NOTE | 2016-10-05 08:00 | NUR ---
GANG LEADER; ASSESSMENT RECEIVED PT ON BIPAP RATE OF 12, 22/5, 40% FIO2. PT IS LETHARGIC BUT AROUSABLE AND ORIENTED TO SELF. PT NOW OFF OF DOPAMINE WILL MONITOR BP CLOSELY TO KEEP SBP ABOVE 90. PT IS INCONTINENT OF URINE AND BOWEL. PICC LINE TO RIGHT UPPER ARM INTACT ABLE TO FLUSH AND WITHDRAW BLOOD. NO ACUTE DISTRESS NOTED. WILL CONTINUE WITH POC
--- NOTE | 2016-10-05 08:19 | NUR ---
WOUND CARE CONSULT: PT PRESENTS WITH DENZEL SCORE OF 15. PT ON COMFORT GEL MATTRESS. PT TO BE TURNED AND REPOSITIONED EVERY 2 HRS PT CONDITION PERMITS, HEELS FLOATED. Z GUARD RECOMMENDED FOR BUTTOCK AND SKIN FOLD PROTECTION. WILL SEE PRN. GRUBER IN AGREEMENT WITH PLAN OF CARE. Addendum: 10/05/16 at 0820 by ANAYELI HEIN WNDNU Amended: Links added.
[2016-10-05] MEDS: DOCUSATE SODIUM 100 MG CAPSULE PO SCH (08:29)
[2016-10-05] MEDS: FLUTICASONE/SALMETEROL DISKUS IH SCH ×2 (08:29→16:12)
[2016-10-05] MEDS: CALCIUM CARB 600MG /VIT D 1 EACH TABLET PO SCH (08:29)
[2016-10-05] MEDS: ASPIRIN 81 MG TAB.CHEW PO SCH (08:29)
[2016-10-05] MEDS: FERROUS SULFATE (325 MG) 325 MG/TAB TABLET PO SCH ×2 (08:30→16:12)
[2016-10-05] MEDS: CARVEDILOL 6.25 MG TABLET PO SCH ×2 (08:30→16:12)
[2016-10-05] MEDS ORDERED: Z GUARD REMEDY 2 OZ OINT TP PRN (08:30)
[2016-10-05] MEDS: clonazePAM 0.5 MG TABLET PO SCH ×2 (08:30→16:12)
--- NOTE | 2016-10-05 08:30 | NUR ---
ELEMENTARY READING SPECIALIST; RESP RT AT BEDSIDE. ATTEMPTED TO PLACE PT ON NASAL CANULA. PT BECAME SOB SATURATIONS DECREASED TO MID 80'S. PT C/O SOB. PT PLACED BACK ON BIPAP. WITH PREVIOUS SETTINGS. SATURATIONS BACK UP TO 95%
[2016-10-05] MEDS: IV NS 0.9% 1,000 ML IV PRN ×2 (08:34→19:44)
[2016-10-05] MEDS: Z GUARD REMEDY 2 OZ OINT TP SCH (10:24)
--- NOTE | 2016-10-05 12:30 | NUR ---
RAILROAD TRACK MECHANIC; GI ABLE TO INSERT NG TUBE TO RIGHT NARE. POSITIVE FOR AUSCULTATION AND ASPIRATION. VERIFIED WITH JAY HYMAN RN .
[2016-10-05] MEDS: ACETAMINOPHEN 325 MG TABLET PO PRN (14:16)
--- NOTE | 2016-10-05 15:15 | NUR ---
RESEARCH TECH; GI NOTED PT REACHING FOR NG TUBE PT WAS ABLE TO PULL NG TUBE OUT. ABHILASH WRIST RESTRAINS RE-ENFORCED. ATTEMPTED TO RE INSERT NG TUBE, BUT PT UN-COOPERATIVE AND PT SATURATIONS DROOPING TO 80'S%. WILL ATTEMPT TO PLACE LATER ONCE SATURATIONS IMPROVE./
--- NOTE | 2016-10-05 20:00 | NUR ---
ICU/RN RECEIVED PT ON BIPAP 40%,SAT OF 100%.LETHARGIC BUT AROUSES TO LIGHT STIMULATION.MONITOR SHOWS BRADYCARDIA RATE OF 52-54/MIN.BP STABLE AT LOW 100'S SYSTOLIC.
[2016-10-05] MEDS: GABAPENTIN 100 MG CAPSULE PO SCH (21:59)
[2016-10-05] MEDS: MONTELUKAST SODIUM (10MG) 10 MG TABLET PO SCH (22:00)
[2016-10-05] MEDS: INSULIN DETEMIR 100 UNIT/ML CARTRIDGE SQ SCH (22:19)
--- NOTE | 2016-10-05 23:08 | NUR ---
ICU/RN PT ABLE TO DISCONNECT SELF FROM BIPAP W/ BILATERAL SOFT RESTRAINTS IN PLACE,RECONNECTED BACK AND LT RESTRAINT ADJUSTED.FURTHER INSTRUCTIONS GIVEN RE-IMPORTANCE OF ABOVE.FOLLOWS SIMPLE COMMANDS BUT VERY FORGETFUL AND DISORIENTED,RE-ORIENTED TO PLACE AND SURROUNDINGS.
[2016-10-06] VITALS (42 sets, daily range): BP systolic 95–166; BP diastolic 43–71
[2016-10-06] MEDS: BLOOD SUGAR DIAGNOSTIC 1 EACH STRIP IN SCH ×5 (00:14→23:59)
[2016-10-06] MEDS: ALBUTEROL FS 2.5 MG/3 ML VIAL.NEB NEB SCH ×4 (01:51→19:32)
[2016-10-06] MEDS: IPRATROPIUM NEB FS 0.5 MG/2.5 ML AMPUL.NEB NEB SCH ×4 (01:51→19:32)
[2016-10-06 05:15] LABS: EOSINOPHILS % (AUTO) 0.1 % (0.0-6.0); HEMATOCRIT 29 % (33-45); HEMOGLOBIN 8.4 g/dL (11.5-14.8); LYMPHOCYTES % (AUTO) 16.5 % (20.0-44.0); MEAN CORPUSCULAR HEMOGLOBIN 21 PG (26.0-33.0); MEAN CORPUSCULAR HGB CONC 29 g/dl (31.0-36.0); MEAN CORPUSCULAR VOLUME 71 fL (82-100); MONOCYTES # (AUTO) 0.3 /CMM (0.1-1.30); MONOCYTES % (AUTO) 5.9 % (2.0-12.0); NEUTROPHILS # (AUTO) 4.5 /CMM (1.8-8.9); NEUTROPHILS % (AUTO) 77.5 % (43.0-81.0); PLATELET COUNT (AUTO) 80 /CMM (150-450); RDW COEFFICIENT OF VARIATION 16.9 (11.5-15.0); RED BLOOD CELL COUNT(AUTO) 4.04 MIL/uL (4.0-5.2); WHITE BLOOD COUNT (AUTO) 5.8 K/uL (4.3-11.0)
[2016-10-06 05:30] LABS: CALCIUM, SERUM 7.4 mg/dL (8.5-10.1); CREATININE 1.8 mg/dL (0.6-1.3); MAGNESIUM 2.3 mg/dL (1.8-2.4); POTASSIUM 4.3 mmol/L (3.5-5.1)
--- NOTE | 2016-10-06 06:00 | NUR ---
ICU/RN PT. CONFUSED,DISORIENTED AND DOES NOT FOLLOW COMMANDS THROWING HEAD PILLOW AND HEEL PILLOWS ON THE GROUND.RECEIVED DEXTROSE 50% 1 AMP FOR BS =41 THEN RECHECKED,AND CH=576.
[2016-10-06] MEDS: PIPERACILLIN /TAZOBACTAM 3.375 G in IV D5W 50 ML IV SCH ×6 (06:19→23:52)
[2016-10-06 06:32] LABS: BAND % (MANUAL) 8 % (0.0-5.0); BASOPHILS % (MANUAL) 1 % (0.0-2.0); EOSINOPHILS % (MANUAL) 1 % (0-4); LYMPHOCYTES % (MANUAL) 16 % (16-48); MONOCYTES % (MANUAL) 6 % (0-11.0); NEUTROPHILS % (MANUAL) 68 (42-76); PLATELET ESTIMATE DECREASED
[2016-10-06 06:33] LABS: ANISOCYTOSIS 1+
[2016-10-06] MEDS: OLANZAPINE 5 MG TABLET PO SCH ×2 (07:00→17:55)
[2016-10-06] MEDS: DIVALPROEX SODIUM 250 MG TABLET.DR PO SCH ×2 (07:00→17:55)
[2016-10-06] MEDS: PANTOPRAZOLE 40 MG TABLET.DR PO SCH (07:30)
[2016-10-06] MEDS: METHIMAZOLE (5MG) 5 MG TABLET PO SCH (08:00)
[2016-10-06] MEDS: CALCIUM CARB 600MG /VIT D 1 EACH TABLET PO SCH (08:01)
[2016-10-06] MEDS: ASPIRIN 81 MG TAB.CHEW PO SCH (08:01)
[2016-10-06] MEDS: CARVEDILOL 6.25 MG TABLET PO SCH ×2 (08:01→17:00)
[2016-10-06] MEDS: DOCUSATE SODIUM 100 MG CAPSULE PO SCH (08:01)
[2016-10-06] MEDS: FLUTICASONE/SALMETEROL DISKUS IH SCH ×2 (08:01→18:03)
[2016-10-06] MEDS: clonazePAM 0.5 MG TABLET PO SCH ×2 (08:02→17:55)
[2016-10-06] MEDS: FERROUS SULFATE (325 MG) 325 MG/TAB TABLET PO SCH ×2 (08:02→17:00)
--- NOTE | 2016-10-06 08:04 | NUR ---
RT PT PLACED TAKEN OFF BIPAP AND PLACED ON 2L NASAL CANNULA. PT STARTED BECOMING SHORT OF BREATHE WITH LABORED BREATHING AFTER 5 MINUTES. PLACED PT BACK ON BIPAP WITH PREVIOUS SETTINGS. Addendum: 10/06/16 at 0806 by YUMIKO VALDEZ RT Amended: Links added.
--- NOTE | 2016-10-06 08:15 | NUR ---
PROFESSIONAL SKATEBOARDER; ASSESSMENT RECEIVED PT ON BIPAP MASK. PT RESTLESS, AWAKE AND ORIENTED TO SELF REACHING FOR BIPAP MASK. RT AT BEDSIDE. PLACED PT ON NASAL CANULA. AFTER ABOUT 5MIN, PT BECAME LABOR BREATHING, C/O SOB AND LETHARGIC. RT PLACED PT BACK ON BIPAP MASK. PT IS INCONTINENT OF URINE. ON DIAPER PERICARE DONE. ABHILASH WRIST RESTRAINS RE-ENFORSED. WILL CONTINUE TO MONITOR CLOSELY.
[2016-10-06] MEDS: IV D5/ 0.9% NACL 1,000 ML IV PRN ×2 (08:45→23:29)
[2016-10-06] MEDS: Z GUARD REMEDY 2 OZ OINT TP SCH (08:46)
[2016-10-06 10:59] LABS: ABG BASE EXCESS 0.3 mmol/L; ABG OXYGEN SATURATION 96.6 % (92.0-98.5); ABG PCO2 54.7 mmHg (35.0-45.0); ABG PO2 99.9 mmHg (75.0-100.0); ABG TOTAL HEMOGLOBIN 8.7 G/dL (12.0-16.0); AaDO2 122.4 mmHg; MetHb 1.5 % (0.0-1.5); O2Hb 94.2 % (94.0-97.0); SITE, ABG Right Radial; VENT MODE, BG BIPAP 22/5
--- NOTE | 2016-10-06 20:00 | NUR ---
ICU/RN. RECEIVED PT ON BIPAP 40% FI02 SAT.99%.PT AWAKE,TALKING TO SELF,CONFUSED AND DISORIENTED,RE-ORIENTED TO TIME PLACE AND SURROUNDINGS. OFFERS NO COMPLAINTS DENIES PAIN OR DISCOMFORT.
--- NOTE | 2016-10-06 20:05 | NUR ---
RT NOTE PT RECEIVED ON BIPAP. SETTINGS PRESCRIBED. PT AWAKE AND ALERT, APPEARS COMFORTABLE. ALARMS SET PER PROTOCOL AND AUDIBLE. BIPAP PLUGGED IN TO RED OUTLET. NO DISTRESS NOTED, WILL CONTINUE TO MONITOR. Addendum: 10/06/16 at 2006 by KALIE PENA RT Amended: Links added.
[2016-10-06] MEDS: GABAPENTIN 100 MG CAPSULE PO SCH (22:00)
[2016-10-06] MEDS: MONTELUKAST SODIUM (10MG) 10 MG TABLET PO SCH (22:00)
[2016-10-07] VITALS (38 sets, daily range): BP systolic 133–192; BP diastolic 35–80
[2016-10-07] MEDS: IPRATROPIUM NEB FS 0.5 MG/2.5 ML AMPUL.NEB NEB SCH ×4 (01:08→19:30)
[2016-10-07] MEDS: ALBUTEROL FS 2.5 MG/3 ML VIAL.NEB NEB SCH ×4 (01:08→19:30)
[2016-10-07 04:42] LABS: HEMATOCRIT 30 % (33-45); MONOCYTES # (AUTO) 0.6 /CMM (0.1-1.30); RED BLOOD CELL COUNT(AUTO) 4.27 MIL/uL (4.0-5.2)
[2016-10-07 04:46] LABS: BASOPHILS % (AUTO) 0.7 % (0.0-2.0); EOSINOPHILS % (AUTO) 0.5 % (0.0-6.0); HEMOGLOBIN 8.7 g/dL (11.5-14.8); LYMPHOCYTES % (AUTO) 20.1 % (20.0-44.0); MEAN CORPUSCULAR HEMOGLOBIN 20 PG (26.0-33.0); MEAN CORPUSCULAR HGB CONC 29 g/dl (31.0-36.0); MEAN CORPUSCULAR VOLUME 70 fL (82-100); MONOCYTES % (AUTO) 11.9 % (2.0-12.0); NEUTROPHILS # (AUTO) 3.4 /CMM (1.8-8.9); NEUTROPHILS % (AUTO) 66.8 % (43.0-81.0); PLATELET COUNT (AUTO) 77 /CMM (150-450); RDW COEFFICIENT OF VARIATION 16.7 (11.5-15.0); WHITE BLOOD COUNT (AUTO) 5.1 K/uL (4.3-11.0)
[2016-10-07 04:58] LABS: BILIRUBIN,TOTAL 0.3 mg/dL (0.2-1.0); CALCIUM, SERUM 7.6 mg/dL (8.5-10.1); CREATININE 1.4 mg/dL (0.6-1.3); MAGNESIUM 2.1 mg/dL (1.8-2.4); PHOSPHORUS 2.5 mg/dL (2.5-4.9); TOTAL PROTEIN, SERUM 5.5 g/dL (6.4-8.2)
[2016-10-07 05:14] LABS: LYMPHOCYTES % (MANUAL) 21 % (16-48); MONOCYTES % (MANUAL) 12 % (0-11.0); NEUTROPHILS % (MANUAL) 67 (42-76); PLATELET ESTIMATE GIANT PLATELET SEEN
[2016-10-07] MEDS: PIPERACILLIN /TAZOBACTAM 3.375 G in IV D5W 50 ML IV SCH ×3 (05:34→17:11)
[2016-10-07] MEDS: BLOOD SUGAR DIAGNOSTIC 1 EACH STRIP IN SCH ×3 (05:39→17:11)
--- NOTE | 2016-10-07 06:02 | NUR ---
ICU/RN SLEPT INTERMITTENTLY,REMAINS CONFUSED AND DISORIENTED,FOLLOWS COMMANDS AR TIMES,GETS ANGRY AND STARTS KICKING PILLOWS,REMOVING DIAPER AND THROWS ON THE FLOOR.INCONTINENT OF URINEX4.CLEANSED EACH TIME.NO BM Z-GUARD APPLIED TO BELLY FOLD AND TO SACRAL AREA.NO SKIN TEAR NOTED.SINUS ANTHONY THROUGHOUT THE NIGHT W/STABLE BP.KEPT BIPAP ON AT ALL TIMES.
[2016-10-07] MEDS: OLANZAPINE 5 MG TABLET PO SCH ×3 (07:00→17:00)
[2016-10-07] MEDS: DIVALPROEX SODIUM 250 MG TABLET.DR PO SCH ×3 (07:00→17:00)
[2016-10-07] MEDS: PANTOPRAZOLE 40 MG TABLET.DR PO SCH ×2 (07:30→09:22)
--- NOTE | 2016-10-07 07:52 | NUR ---
WAREHOUSE DISTRIBUTION SPECIALIST NOTE RCVD PT AWAKE AND ALERT TO SELF, ABLE TO FOLLOW COMMANDS ON CONTINUOUS BIPAP TOLERATING WELL. PT WAS RE-ORIENTED. SB ON TELE. KAILEE PICC C/D/I/PATENT. NO S/O INFILTRATION OR PHLEBITIS OBSERVED. WILL CONTINUE TO MONITOR PT FOR SAFETY AND COMFORT. CALL LIGHT WITHIN REACH. BED IN LOW AND LOCKED POSITION. BED ALARM ON.
[2016-10-07] MEDS: METHIMAZOLE (5MG) 5 MG TABLET PO SCH ×2 (08:00→09:29)
[2016-10-07] MEDS: ASPIRIN 81 MG TAB.CHEW PO SCH ×2 (09:00→09:21)
[2016-10-07] MEDS: CALCIUM CARB 600MG /VIT D 1 EACH TABLET PO SCH ×2 (09:00→09:25)
[2016-10-07] MEDS: FLUTICASONE/SALMETEROL DISKUS IH SCH ×3 (09:00→17:00)
[2016-10-07] MEDS: DOCUSATE SODIUM 100 MG CAPSULE PO SCH ×2 (09:00→09:25)
[2016-10-07] MEDS: FERROUS SULFATE (325 MG) 325 MG/TAB TABLET PO SCH ×3 (09:00→17:00)
[2016-10-07] MEDS: CARVEDILOL 6.25 MG TABLET PO SCH ×3 (09:00→17:00)
[2016-10-07] MEDS: clonazePAM 0.5 MG TABLET PO SCH ×3 (09:00→17:00)
[2016-10-07] MEDS: Z GUARD REMEDY 2 OZ OINT TP SCH (09:26)
--- NOTE | 2016-10-07 09:34 | NUR ---
PT TAKEN OFF BIPAP PER DR. YAP. PLACED ON 3L NC. VITAL SIGNS STABLE, NO RESP DISTRESS NOTED. VERBAL ORDER FOR ABG IN [address] YAP.
[2016-10-07] MEDS ORDERED: CLONIDINE HCL 0.3 MG/24H PTWK 1 EA PATCH TD SCH (10:00)
--- NOTE | 2016-10-07 10:33 | NUR ---
PT PLACED BACK ON BIPAP W/ RATE OF [address] YAP AT BEDSIDE. PT DID NOT TOLERATE WEANING TO NASAL CANNULA WELL, DESATURATION TO LOWER 80S NOTED, W/ INCREASED LETHARGY AND INCREASED WOB. TOLERATES BIPAP WELL
[2016-10-07] MEDS: NITROGLYCERIN 30 GM TUBE TP SCH ×2 (10:52→20:22)
--- NOTE | 2016-10-07 11:15 | NUR ---
ICU MEDICATION NOTE PT VERY CONFUSED OFF BIPAP, UNABLE TO FOLLOW COMMANDS, UNSAFE TO SWALLOW MEDICATIONS. PT PLACED ON BIPAP DUE TO DESATURATION. DR. BRIGGS AT BEDSIDE INFORMED OF ABOVE. Addendum: 10/07/16 at 1604 by ARTHUR TAN RN DR. BRIGGS INFORMED THAT NO IV MEDICATION FOR BP AVAILABLE AT THIS TIME AND THAT DR. CATHERINE ORDERED CLONIDINE PATCH AND NITRO OINTMENT WHICH WERE ALREADY ADMINISTERED. PT'S ELEVATED BP CONTINUES DESPITE THOSE TWO MEDICATIONS ON BOARD.
[2016-10-07] MEDS: IV D5W 1,000 ML IV PRN (12:03)
[2016-10-07] MEDS ORDERED: SECONDARY IV SET 1 EA INFUS.SET MC ONE (12:07)
[2016-10-07] MEDS: hydrALAZINE HCL IV 20 MG VIAL IV PRN ×2 (13:31→22:55)
--- NOTE | 2016-10-07 17:05 | NUR ---
ICU MEDICATION NOTE PT CONTINUES TO BE ON BIPAP UNSAFE TO REMOVE, UNABLE TO ADMINISTER PO MEDS.
--- NOTE | 2016-10-07 18:38 | NUR ---
FOURDRINIER TENDER NOTE PT AWAKE AND ALERT TO SELF, CONTINUES TO BE ON BIPAP, TOLERATING WELL. SR ON TELE. FISH IN PLACE DRAINING CLEAR, YELLOW URINE. KAILEE PICC REMAINS C/D/I/PATENT. NO S/O INFILTRATION OR PHLEBITIS OBSERVED. PT'S CARE WILL BE ENDORSED TO UNIFORM FORCE CAPTAIN RN FOR CONTINUITY OF CARE. BED IN LOW AND LOCKED POSITION. BED ALARM IN PLACE.
--- NOTE | 2016-10-07 20:00 | NUR ---
PROMOTIONS SPECIALIST: RECEIVED PT ON BIPAP MASK CURRENT SETTING TOLERATING WELL, SATURATING 100%, NO DISTRESS. PT RESTLESS, AWAKE AND ORIENTED TO SELF REACHING FOR BIPAP MASK, SOFT WRIST RESTRAINTS FOR SAFETY REASON . V/S STABLE. RIGHT UPPER ARM PICC INTACT, ONGOING D5W AT 75 ML/HR. ONGOING MONITORING...
--- NOTE | 2016-10-07 20:02 | NUR ---
RT NOTE PT RECEIVED ON BIPAP. PT ON BIPAP SETTINGS PRESCRIBED. PT AWAKE AND ALERT. PT APPEARS COMFORTABLE. ALARMS SET PER PROTOCOL AND AUDIBLE. BIPAP PLUGGED IN TO RED OUTLET. AMBU BAG AT BEDSIDE. NO DISTRESS NOTED. WILL CONTINUE TO MONITOR. Addendum: 10/07/16 at 2005 by KALIE PENA RT Amended: Links added.
[2016-10-07] MEDS: MONTELUKAST SODIUM (10MG) 10 MG TABLET PO SCH (20:22)
[2016-10-07] MEDS: GABAPENTIN 100 MG CAPSULE PO SCH (20:22)
--- NOTE | 2016-10-07 23:05 | NUR ---
VOICE WRITING REPORTER: SBP ELEVATED TO 172, HYDRALAZINE 10 MG IV PRN GIVEN, KEEP MONITORING BP.
[2016-10-08] VITALS (37 sets, daily range): BP systolic 129–175; BP diastolic 50–89
[2016-10-08] MEDS: BLOOD SUGAR DIAGNOSTIC 1 EACH STRIP IN SCH ×4 (00:37→17:01)
[2016-10-08] MEDS: PIPERACILLIN /TAZOBACTAM 3.375 G in IV D5W 50 ML IV SCH ×4 (00:37→17:02)
[2016-10-08] MEDS: IPRATROPIUM NEB FS 0.5 MG/2.5 ML AMPUL.NEB NEB SCH ×4 (01:10→19:23)
[2016-10-08] MEDS: ALBUTEROL FS 2.5 MG/3 ML VIAL.NEB NEB SCH ×4 (01:10→19:23)
[2016-10-08] MEDS: IV D5W 1,000 ML IV PRN ×2 (04:29→17:00)
[2016-10-08 04:56] LABS: CALCIUM, SERUM 7.7 mg/dL (8.5-10.1); CREATININE 1.2 mg/dL (0.6-1.3); POTASSIUM 3.8 mmol/L (3.5-5.1)
[2016-10-08] MEDS: INSULIN REGULAR, HUMAN 100 UNIT/ML 3 ML VIAL SQ PRN ×2 (05:06→12:02)
[2016-10-08] MEDS: hydrALAZINE HCL IV 20 MG VIAL IV PRN (05:17)
[2016-10-08] MEDS: DIVALPROEX SODIUM 250 MG TABLET.DR PO SCH ×2 (06:05→16:24)
[2016-10-08] MEDS: OLANZAPINE 5 MG TABLET PO SCH ×2 (06:28→16:24)
--- NOTE | 2016-10-08 07:15 | NUR ---
REVERSE ENGINEER NOTES RECEIVED PATIENT AOX1 CONFUSED , RESPONSIVE TO VERBAL STIMULI , NOT IN ACUTE DISTRESS , RESPIRATIONS EVEN AND UNLABORED , SPO2 OF 100% VIA BIPAP 20/5 R 16 FIO2 40% TOLERATING WELL , SR 61 ON BEDSIDE MONITOR , FC DRAINING VIA GRAVITY WITH CLEAR YELLOW URINE , KAILEE PICC LINE PATENT AND INTACT WITH D5W @ 75ML/HR INFUSING WELL , ALL NEEDS ATTENDED , BED ON LOW AND LOCKED POSITION , SIDE RAILS X2 ,CALL LIGHT WITHIN REACH , HOB @ 45 WILL CONTINUE TO MONITOR
[2016-10-08] MEDS: PANTOPRAZOLE 40 MG TABLET.DR PO SCH (07:30)
[2016-10-08] MEDS: FLUTICASONE/SALMETEROL DISKUS IH SCH ×2 (07:50→16:23)
[2016-10-08] MEDS: CALCIUM CARB 600MG /VIT D 1 EACH TABLET PO SCH (07:50)
[2016-10-08] MEDS: METHIMAZOLE (5MG) 5 MG TABLET PO SCH (07:50)
[2016-10-08] MEDS: DOCUSATE SODIUM 100 MG CAPSULE PO SCH (07:50)
[2016-10-08] MEDS: ASPIRIN 81 MG TAB.CHEW PO SCH (07:50)
[2016-10-08] MEDS: CARVEDILOL 6.25 MG TABLET PO SCH ×2 (07:51→16:23)
[2016-10-08] MEDS: clonazePAM 0.5 MG TABLET PO SCH ×2 (07:51→16:24)
[2016-10-08] MEDS: FERROUS SULFATE (325 MG) 325 MG/TAB TABLET PO SCH ×2 (07:51→16:24)
[2016-10-08] MEDS: NITROGLYCERIN 30 GM TUBE TP SCH ×2 (08:14→21:10)
[2016-10-08] MEDS: Z GUARD REMEDY 2 OZ OINT TP SCH (08:14)
--- NOTE | 2016-10-08 09:00 | NUR ---
GAME ROOM ATTENDANT NOTES PO MEDS UNABLE TO ADMINISTER , PT IS HIGH RISK FOR ASPIRATION , WILL CONTINUE TO MONITOR
--- NOTE | 2016-10-08 09:57 | NUR ---
MERCURY RECOVERER NOTES DR YAP AT BEDSIDE , NOTIFIED PT ON BIPAP SETTINGS ORDERED TOLERATING WELL WITH SPO2 OF 100% , NO RESPIRATORY DISTRESS NOTED , DISCUSSED LABS , ABG AND CHEST XRAY , MD AWARE , PER MD CONTINUE BIPAP , WILL CONTINUE TO MONITOR
[2016-10-08 10:01] LABS: ABG BASE EXCESS 2.8 mmol/L; ABG OXYGEN SATURATION 96.4 % (92.0-98.5); ABG PCO2 49.4 mmHg (35.0-45.0); ABG PH 7.378 (7.350-7.450); ABG PO2 89.8 mmHg (75.0-100.0); ABG TOTAL HEMOGLOBIN 8.4 G/dL (12.0-16.0); AaDO2 138.6 mmHg; COHb 1.6 % (0.5-1.5); MetHb 0.8 % (0.0-1.5); O2Hb 94.1 % (94.0-97.0); SITE, ABG Left Radial; VENT MODE, BG BIPAP 15/5 16 40%
--- NOTE | 2016-10-08 18:23 | NUR ---
RT END OF THE SHIFT REPORT: PT. 75 Y OLD FEMALE REMAIN ON BIPAP WITH NOTED SETTINGS, BIPAP CHANGES POST ABG PER DR. YAP, AT THE BEDSIDE. PT. GINETTE AND NO DISTRESS NOTED T/O SHIFT BIPAP PAD CHANGED PT. REMAIN STABLE. B/S RALES BILATERALLY, EQUAL CHEST RISE NOTED, CONTINUE MONITOR. AMBU BAG REMAIN AT THE BEDSIDE. AND BIPAP PLUGGED INTO RED OUTLET. REPORT WILL BE PASS TO PM SHIFT Addendum: 10/08/16 at 1826 by CARLOS RAMÍREZ RT Amended: Links added.
--- NOTE | 2016-10-08 19:09 | NUR ---
FUNDRAISING CONSULTANT CLOSING NOTES PATIENT STABLE AT THIS TIME, NOT IN ACUTE DISTRESS , RESPIRATIONS EVEN AND UNLABORED , SPO2 OF 100% VIA BIPAP 15/5 R 16 FIO2 40% TOLERATING WELL , SR 70 ON BEDSIDE MONITOR , FC DRAINING VIA GRAVITY WITH CLEAR YELLOW URINE , KAILEE PICC LINE PATENT AND INTACT WITH D5W @ 75ML/HR INFUSING WELL , ALL NEEDS ATTENDED , BED ON LOW AND LOCKED POSITION , SIDE RAILS X2 ,CALL LIGHT WITHIN REACH , HOB @ 45 REPORT GIVEN TO LUIS EDUARDO FOR CONTINUITY OF CARE
[2016-10-08] MEDS: MONTELUKAST SODIUM (10MG) 10 MG TABLET PO SCH (21:16)
[2016-10-08] MEDS: GABAPENTIN 100 MG CAPSULE PO SCH (21:16)
[2016-10-09] VITALS (35 sets, daily range): BP systolic 111–177; BP diastolic 43–82
[2016-10-09] MEDS: hydrALAZINE HCL IV 20 MG VIAL IV PRN (00:24)
[2016-10-09] MEDS: BLOOD SUGAR DIAGNOSTIC 1 EACH STRIP IN SCH ×4 (00:24→18:04)
[2016-10-09] MEDS: PIPERACILLIN /TAZOBACTAM 3.375 G in IV D5W 50 ML IV SCH ×4 (00:25→18:03)
[2016-10-09] MEDS: IPRATROPIUM NEB FS 0.5 MG/2.5 ML AMPUL.NEB NEB SCH ×4 (01:30→20:06)
[2016-10-09] MEDS: ALBUTEROL FS 2.5 MG/3 ML VIAL.NEB NEB SCH ×5 (01:30→20:06)
[2016-10-09 04:48] LABS: CALCIUM, SERUM 7.8 mg/dL (8.5-10.1); POTASSIUM 3.5 mmol/L (3.5-5.1)
[2016-10-09] MEDS: INSULIN REGULAR, HUMAN 100 UNIT/ML 3 ML VIAL SQ PRN ×2 (05:15→11:35)
[2016-10-09] MEDS: IV D5W 1,000 ML IV PRN ×2 (06:36→23:19)
[2016-10-09] MEDS: DIVALPROEX SODIUM 250 MG TABLET.DR PO SCH ×2 (06:36→16:39)
[2016-10-09] MEDS: OLANZAPINE 5 MG TABLET PO SCH ×2 (07:00→16:39)
--- NOTE | 2016-10-09 07:35 | NUR ---
VISUAL TRAINING AIDE RECEIVED PATIENT FROM THE PREVIOUS SHIFT. PATIENT IN BED. RESTING COMFORTABLY. BIPAP SETTINGS REVIEWED AND VERIFIED. TURNED AND REPOSITIONED FOR COMFORT AND WOUND PREVENTION. WILL CONTINUE TO MONITOR AND PROVIDE CARE.
[2016-10-09] MEDS: METHIMAZOLE (5MG) 5 MG TABLET PO SCH (08:00)
[2016-10-09] MEDS: CALCIUM CARB 600MG /VIT D 1 EACH TABLET PO SCH (09:00)
[2016-10-09] MEDS: FLUTICASONE/SALMETEROL DISKUS IH SCH ×2 (09:00→16:39)
[2016-10-09] MEDS: CARVEDILOL 6.25 MG TABLET PO SCH ×2 (09:00→16:39)
[2016-10-09] MEDS: DOCUSATE SODIUM 100 MG CAPSULE PO SCH (09:00)
[2016-10-09] MEDS: clonazePAM 0.5 MG TABLET PO SCH ×2 (09:00→16:39)
[2016-10-09] MEDS: FERROUS SULFATE (325 MG) 325 MG/TAB TABLET PO SCH ×2 (09:00→16:39)
[2016-10-09] MEDS: ASPIRIN 81 MG TAB.CHEW PO SCH (09:00)
[2016-10-09] MEDS: Z GUARD REMEDY 2 OZ OINT TP SCH (10:55)
[2016-10-09] MEDS: PANTOPRAZOLE 40 MG VIAL IV SCH (10:57)
[2016-10-09] MEDS: NITROGLYCERIN 30 GM TUBE TP SCH ×2 (11:30→22:42)
[2016-10-09] MEDS: GABAPENTIN 100 MG CAPSULE PO SCH (22:00)
[2016-10-09] MEDS: MONTELUKAST SODIUM (10MG) 10 MG TABLET PO SCH (22:00)
[2016-10-10] VITALS (58 sets, daily range): BP systolic 67–165; BP diastolic 33–78
[2016-10-10] MEDS: PIPERACILLIN /TAZOBACTAM 3.375 G in IV D5W 50 ML IV SCH ×4 (00:35→18:28)
[2016-10-10] MEDS: BLOOD SUGAR DIAGNOSTIC 1 EACH STRIP IN SCH ×4 (00:35→18:28)
[2016-10-10] MEDS: IPRATROPIUM NEB FS 0.5 MG/2.5 ML AMPUL.NEB NEB SCH ×4 (01:56→19:38)
[2016-10-10] MEDS: ALBUTEROL FS 2.5 MG/3 ML VIAL.NEB NEB SCH ×4 (01:56→19:38)
[2016-10-10 04:42] LABS: CALCIUM, SERUM 7.7 mg/dL (8.5-10.1); CREATININE 1.1 mg/dL (0.6-1.3); POTASSIUM 3.6 mmol/L (3.5-5.1)
[2016-10-10] MEDS: INSULIN REGULAR, HUMAN 100 UNIT/ML 3 ML VIAL SQ PRN ×3 (05:26→18:27)
[2016-10-10] MEDS: DIVALPROEX SODIUM 250 MG TABLET.DR PO SCH ×2 (05:47→17:00)
[2016-10-10] MEDS: OLANZAPINE 5 MG TABLET PO SCH ×2 (05:47→17:00)
--- NOTE | 2016-10-10 06:47 | NUR ---
PRECISION FILER HAND: PT BEING STABLE THE WHOLE SHIFT, NOT SIGNIFICANT CHANGES NOTED. COMPETE BED BATH GIVEN. HAD ONE BM. WILL ENDORSE CARE TO NEXT SHIFT.
--- NOTE | 2016-10-10 07:36 | NUR ---
RT PATIENT AWAKE, RESPMSIVE, WITH NO SOB. REMOVED FROM BIPAP AND PLACED ON 2L N/C. PATIENT REFUSING ABG DRAW.
--- NOTE | 2016-10-10 08:00 | NUR ---
CLERK ANALYST RECEIVED PATIENT FROM THE PREVIOUS SHIFT. PATIENT IN BED. RESTING COMFORTABLY. NO ACUTE DISTRESS NOTED. EVEN NON LABORED BREATHING PATTERN. NO ACUTE DISTRESS. ON NASAL CANNULA NOW. TURNED AND REPOSITIONED FOR COMFORT AND WOUND PREVENTION. WILL CONTINUE TO MONITOR AND PROVIDE CARE.
[2016-10-10] MEDS: clonazePAM 0.5 MG TABLET PO SCH ×2 (08:13→17:00)
[2016-10-10] MEDS: DOCUSATE SODIUM 100 MG CAPSULE PO SCH (08:13)
[2016-10-10] MEDS: ASPIRIN 81 MG TAB.CHEW PO SCH (08:27)
[2016-10-10] MEDS: FERROUS SULFATE (325 MG) 325 MG/TAB TABLET PO SCH ×2 (08:28→17:00)
[2016-10-10] MEDS: CARVEDILOL 6.25 MG TABLET PO SCH ×2 (08:28→17:00)
[2016-10-10] MEDS: CALCIUM CARB 600MG /VIT D 1 EACH TABLET PO SCH (08:28)
[2016-10-10] MEDS: PANTOPRAZOLE 40 MG VIAL IV SCH (08:28)
[2016-10-10] MEDS: METHIMAZOLE (5MG) 5 MG TABLET PO SCH (08:28)
[2016-10-10] MEDS: Z GUARD REMEDY 2 OZ OINT TP SCH (08:29)
[2016-10-10] MEDS: NITROGLYCERIN 30 GM TUBE TP SCH ×2 (08:31→20:10)
[2016-10-10] MEDS: FLUTICASONE/SALMETEROL DISKUS IH SCH ×2 (09:00→17:00)
[2016-10-10 09:11] LABS: ABG BASE EXCESS 1.4 mmol/L; ABG OXYGEN SATURATION 91.7 % (92.0-98.5); ABG PCO2 36.3 mmHg (35.0-45.0); ABG TOTAL HEMOGLOBIN 8.7 G/dL (12.0-16.0); AaDO2 94.8 mmHg; COHb 1.1 % (0.5-1.5); MetHb 0.9 % (0.0-1.5); O2Hb 89.9 % (94.0-97.0); SITE, ABG Right Radial; VENT MODE, BG NASAL CANNULA
[2016-10-10] MEDS ORDERED: IV SET PRIMARY PUMP SET 1 EA INFUS.SET MC ONE ×3 (09:43→16:15)
[2016-10-10 14:06] LABS: HEMOGLOBIN 7.2 g/dL (11.5-14.8)
--- NOTE | 2016-10-10 14:56 | NUR ---
COIL STRAPPER RN SPOKE TO PATIENT REGARDING BLOOD TRANSFUSION. ADVERSE SIDE EFFECTS AND ETC INFORMED TO THE PATIENT BY RN. CONSENT OBTAINED. EVENT WITNESSED BY CHARGE NURSE.
[2016-10-10] MEDS ORDERED: BLOOD IV SET 1 EA INFUS.SET MC ONE (14:58)
[2016-10-10] MEDS ORDERED: IV NS 0.9% 1,000 ML ONE (14:59)
[2016-10-10] MEDS ORDERED: IV NS 0.9% 250 ML IV ONE (14:59)
[2016-10-10] MEDS ORDERED: NOREPINEPHRINE 16 MG in IV D5W 500 ML IV PRN (16:00)
[2016-10-10] MEDS: IV D5/ 0.9% NACL 1,000 ML IV PRN ×2 (16:04→16:28)
[2016-10-10 16:07] LABS: INR 1.11 (0.87-1.13)
--- NOTE | 2016-10-10 16:47 | NUR ---
FLUID JET CUTTER OPERATOR PATIENT IS ACTIVELY BLEEDING. BRIGHT RED BLOOD FROM THE RECTUM. DR. CHESTER WERNER AWARE. RECEIVED ORDERS FOR PRESSORS, D5NS 75ML/HR. STAT BLOOD UNITSX [address] LEVOPHED STARTED AT 3MCG/HR FOR HYPOTENSION. FAMILY MADE AWARE OF THE SITUATION. STILL ON 2L NC AND SATURATING AT 100% O2 SAT. SINUS RHYTHM ON MONITOR. ADEQUATE URINE OUTPUT. LETHARGIC BUT ABLE AROUSABLE AND FOLLOWS COMMANDS. WILL CONTINUE TO MONITOR AND PROVIDE CARE.
--- NOTE | 2016-10-10 19:35 | NUR ---
2nd unit of blood started, temp 99.1 oral, vss, pt on levo, pt is awake alert
--- NOTE | 2016-10-10 19:49 | NUR ---
METAL COATER RN CALLED PATIENT'S DAUGHTER PRADEEP AND RECEIVED CONSENT FOR NM GI BLEED STUDY. WITNESSED BY ANOTHER RN.
--- NOTE | 2016-10-10 20:12 | NUR ---
2nd unit of blood transfused, vss, temp 98.4 oral, pt awake a lert, no s/s of reaction
[2016-10-10 21:10] LABS: BASOPHILS % (AUTO) 0.1 % (0.0-2.0); EOSINOPHILS % (AUTO) 0.1 % (0.0-6.0); HEMATOCRIT 22 % (33-45); LYMPHOCYTES # (AUTO) 1.5 /CMM (0.8-4.8); LYMPHOCYTES % (AUTO) 14.8 % (20.0-44.0); MEAN CORPUSCULAR HEMOGLOBIN 23 PG (26.0-33.0); MEAN CORPUSCULAR HGB CONC 30 g/dl (31.0-36.0); MEAN CORPUSCULAR VOLUME 76 fL (82-100); MONOCYTES # (AUTO) 0.9 /CMM (0.1-1.30); MONOCYTES % (AUTO) 8.8 % (2.0-12.0); NEUTROPHILS # (AUTO) 7.9 /CMM (1.8-8.9); NEUTROPHILS % (AUTO) 76.2 % (43.0-81.0); PLATELET COUNT (AUTO) 134 /CMM (150-450); RED BLOOD CELL COUNT(AUTO) 2.89 MIL/uL (4.0-5.2); WHITE BLOOD COUNT (AUTO) 10.4 K/uL (4.3-11.0)
[2016-10-10 21:14] LABS: HEMOGLOBIN 6.7 g/dL (11.5-14.8)
--- NOTE | 2016-10-10 21:20 | NUR ---
Critical lab hemoglobin 6.7. I called Dr. Jensen regarding pt hemoglobin, he ordered 1 unit PRBC and said to get the Nuclear Med scan done. will carry out orders
[2016-10-10] MEDS: MONTELUKAST SODIUM (10MG) 10 MG TABLET PO SCH (21:28)
[2016-10-10] MEDS: GABAPENTIN 100 MG CAPSULE PO SCH (21:28)
--- NOTE | 2016-10-10 21:30 | NUR ---
sandy from nuclear med at bedside, we are going down for the nuclear med GI bleed acute loss scan now
[2016-10-10 21:42] LABS: ANISOCYTOSIS 2+; HYPOCHROMASIA 2+; LYMPHOCYTES % (MANUAL) 17 % (16-48); MONOCYTES % (MANUAL) 5 % (0-11.0); NEUTROPHILS % (MANUAL) 78 (42-76)
[2016-10-10 21:44] LABS: PLATELET ESTIMATE DECREASED
[2016-10-11] VITALS (53 sets, daily range): BP systolic 77–154; BP diastolic 35–96
[2016-10-11] MEDS: BLOOD SUGAR DIAGNOSTIC 1 EACH STRIP IN SCH ×5 (00:20→23:06)
[2016-10-11] MEDS: PIPERACILLIN /TAZOBACTAM 3.375 G in IV D5W 50 ML IV SCH ×5 (00:21→23:06)
[2016-10-11] MEDS: INSULIN REGULAR, HUMAN 100 UNIT/ML 3 ML VIAL SQ PRN ×4 (00:25→23:12)
[2016-10-11] MEDS ORDERED: BLOOD IV SET 1 EA INFUS.SET MC ONE (00:31)
[2016-10-11] MEDS ORDERED: IV NS 0.9% 250 ML IV ONE ×2 (00:31→01:00)
[2016-10-11] MEDS: ALBUTEROL FS 2.5 MG/3 ML VIAL.NEB NEB SCH ×4 (01:21→20:02)
[2016-10-11] MEDS: IPRATROPIUM NEB FS 0.5 MG/2.5 ML AMPUL.NEB NEB SCH ×4 (01:21→20:02)
--- NOTE | 2016-10-11 02:00 | NUR ---
2nd unit of blood given, no s/s of reaction, vss. pt awake alert. pt had a bowel movement brown, no bleeding noted, full bed bath given.
[2016-10-11] MEDS: IV D5/ 0.9% NACL 1,000 ML IV PRN ×3 (04:14→23:27)
[2016-10-11 04:52] LABS: BASOPHILS % (AUTO) 0.1 % (0.0-2.0); EOSINOPHILS % (AUTO) 0.6 % (0.0-6.0); HEMATOCRIT 26 % (33-45); HEMOGLOBIN 8.4 g/dL (11.5-14.8); LYMPHOCYTES # (AUTO) 2.1 /CMM (0.8-4.8); LYMPHOCYTES % (AUTO) 31.8 % (20.0-44.0); MEAN CORPUSCULAR HEMOGLOBIN 25 PG (26.0-33.0); MEAN CORPUSCULAR HGB CONC 32 g/dl (31.0-36.0); MEAN CORPUSCULAR VOLUME 78 fL (82-100); MONOCYTES # (AUTO) 0.9 /CMM (0.1-1.30); MONOCYTES % (AUTO) 13.9 % (2.0-12.0); NEUTROPHILS # (AUTO) 3.6 /CMM (1.8-8.9); NEUTROPHILS % (AUTO) 53.6 % (43.0-81.0); PLATELET COUNT (AUTO) 131 /CMM (150-450); RDW COEFFICIENT OF VARIATION 24.1 (11.5-15.0); RED BLOOD CELL COUNT(AUTO) 3.36 MIL/uL (4.0-5.2); WHITE BLOOD COUNT (AUTO) 6.7 K/uL (4.3-11.0)
[2016-10-11 05:05] LABS: CREATININE 1.6 mg/dL (0.6-1.3); POTASSIUM 3.6 mmol/L (3.5-5.1)
[2016-10-11] MEDS: DIVALPROEX SODIUM 250 MG TABLET.DR PO SCH ×2 (07:16→17:50)
[2016-10-11] MEDS: OLANZAPINE 5 MG TABLET PO SCH ×2 (07:16→17:50)
--- NOTE | 2016-10-11 08:00 | NUR ---
TALKING BOOKS LIBRARY CLERK; ASSESSMENT RECEIVED PT AWAKE AND ORIENTED X2. PT IS CONFUSED AND FORGETFUL AT TIMES. PT DENIES ANY PAIN OR SOB. PT ON NASAL CANNULA 2L/MIN. [id number] NO S/S OF BLEEDING. H/H STABLE. FISH CATH INTACT DRAINING TO GRAVITY, CLEAR YELLOW URINE. NO ACUTE DISTRESS NOTED. WILL CONTINUE TO MONITOR.
[2016-10-11] MEDS: ASPIRIN 81 MG TAB.CHEW PO SCH (09:00)
[2016-10-11] MEDS: DOCUSATE SODIUM 100 MG CAPSULE PO SCH (09:00)
[2016-10-11] MEDS: clonazePAM 0.5 MG TABLET PO SCH ×2 (09:56→17:50)
[2016-10-11] MEDS: FERROUS SULFATE (325 MG) 325 MG/TAB TABLET PO SCH ×2 (09:56→17:50)
[2016-10-11] MEDS: CALCIUM CARB 600MG /VIT D 1 EACH TABLET PO SCH (09:56)
[2016-10-11] MEDS: CARVEDILOL 6.25 MG TABLET PO SCH ×2 (09:56→17:50)
[2016-10-11] MEDS: PANTOPRAZOLE 40 MG VIAL IV SCH (09:56)
[2016-10-11] MEDS: Z GUARD REMEDY 2 OZ OINT TP SCH (09:57)
[2016-10-11] MEDS: METHIMAZOLE (5MG) 5 MG TABLET PO SCH (10:01)
[2016-10-11] MEDS: NITROGLYCERIN 30 GM TUBE TP SCH ×2 (10:01→21:00)
[2016-10-11] MEDS: FLUTICASONE/SALMETEROL DISKUS IH SCH ×2 (10:02→17:53)
[2016-10-11] MEDS ORDERED: IV SET PRIMARY PUMP SET 1 EA INFUS.SET MC ONE (14:00)
[2016-10-11] MEDS: SOD FERRIC GLUC 125 MG in IV NS 0.9% 100 ML IV SCH (14:06)
--- NOTE | 2016-10-11 20:00 | NUR ---
PHYSIOTHERAPY AIDE ALL THREE PORTS TO PICC LINE OCCLUDED . SUPERINTENDENT NONSELLING AWARE. NO ONE AVAILABLE TO COME READJUST . NEW IV INSERTED
[2016-10-11] MEDS: GABAPENTIN 100 MG CAPSULE PO SCH (21:41)
[2016-10-11] MEDS: MONTELUKAST SODIUM (10MG) 10 MG TABLET PO SCH (21:42)
[2016-10-12] VITALS (20 sets, daily range): BP systolic 93–151; BP diastolic 39–76
[2016-10-12] MEDS: IPRATROPIUM NEB FS 0.5 MG/2.5 ML AMPUL.NEB NEB SCH ×4 (01:06→20:24)
[2016-10-12] MEDS: ALBUTEROL FS 2.5 MG/3 ML VIAL.NEB NEB SCH ×4 (01:06→20:25)
[2016-10-12] MEDS: IV D5/ 0.9% NACL 1,000 ML IV PRN (05:51)
[2016-10-12] MEDS: DIVALPROEX SODIUM 250 MG TABLET.DR PO SCH ×2 (06:01→16:52)
[2016-10-12] MEDS: PIPERACILLIN /TAZOBACTAM 3.375 G in IV D5W 50 ML IV SCH ×3 (06:01→18:19)
[2016-10-12] MEDS: BLOOD SUGAR DIAGNOSTIC 1 EACH STRIP IN SCH ×3 (06:01→18:19)
[2016-10-12] MEDS: OLANZAPINE 5 MG TABLET PO SCH ×2 (06:01→16:51)
[2016-10-12] MEDS: INSULIN REGULAR, HUMAN 100 UNIT/ML 3 ML VIAL SQ PRN ×2 (06:11→12:29)
--- NOTE | 2016-10-12 06:57 | NUR ---
STRADDLE BUG DRIVER PT HAD NO SIGNS OF BLEEDING THROUGHOUT THE NIGHT. BLOOD GLUCOSE COVERED BY SLIDING SCALE. PT HAD NO SIGNS OF SOB OR RESP DISTRESS. PT OFF BIPAP ALL NIGHT. PT IS CONFUSED BUT DOESN'T ATTEMPT TO GET OOB.NO INJURIES DURING SHIFT NOTED. RIGHT THUMB IV PATENT AND INTACT. IVF RUNNING W/O INFILTRATION
--- NOTE | 2016-10-12 07:35 | NUR ---
SENIOR IT ASSISTANT: pt.is very sleepy, verbally reactive,A/Ox1, no c/o, no pain now, SR, SBPover 100, O2 sat.91-94 on 2L O2 n/c, off of Bipap over 24h, no acute bleeding by report, clear liquid diet, BS 147, getting D5NS@150ml./h, T100.3, will s/w
--- NOTE | 2016-10-12 08:00 | NUR ---
ACTING SECTION CHIEF: PICC is patent with diff arm reposition, blood return+
--- NOTE | 2016-10-12 08:00 | NUR ---
COMMERCIAL LOAN CLOSER: pt.is still drowsy, O2 sat. 91-92% after RespTx, RT updated, ABG order+
--- NOTE | 2016-10-12 08:25 | NUR ---
BOARDING MACHINE OPERATOR: is in room, updated with pt.current condition, VS, O2 sat., T100.3, I/O, IVF, diet, BS, agree for ABG, ordered:continue same IVF rate 50ml/h
[2016-10-12] MEDS: ASPIRIN 81 MG TAB.CHEW PO SCH (08:48)
[2016-10-12] MEDS: CARVEDILOL 6.25 MG TABLET PO SCH ×2 (08:48→16:52)
[2016-10-12] MEDS: FERROUS SULFATE (325 MG) 325 MG/TAB TABLET PO SCH ×2 (08:48→16:51)
[2016-10-12] MEDS: clonazePAM 0.5 MG TABLET PO SCH ×2 (08:48→16:51)
[2016-10-12] MEDS: NITROGLYCERIN 30 GM TUBE TP SCH ×2 (08:48→21:58)
[2016-10-12] MEDS: DOCUSATE SODIUM 100 MG CAPSULE PO SCH (08:50)
[2016-10-12] MEDS: CALCIUM CARB 600MG /VIT D 1 EACH TABLET PO SCH (08:50)
[2016-10-12] MEDS: ACETAMINOPHEN 325 MG TABLET PO PRN (08:50)
[2016-10-12] MEDS: PANTOPRAZOLE 40 MG VIAL IV SCH (08:50)
--- NOTE | 2016-10-12 08:50 | NUR ---
CALL CENTER SPECIALIST: pt.daughter called, notified re pt.status,VS,T,orders,POC
[2016-10-12] MEDS: FLUTICASONE/SALMETEROL DISKUS IH SCH ×2 (08:53→16:57)
[2016-10-12] MEDS: Z GUARD REMEDY 2 OZ OINT TP SCH (08:54)
[2016-10-12] MEDS: METHIMAZOLE (5MG) 5 MG TABLET PO SCH (08:58)
[2016-10-12 09:39] LABS: EOSINOPHILS % (AUTO) 0.7 % (0.0-6.0); HEMATOCRIT 26 % (33-45); HEMOGLOBIN 8.3 g/dL (11.5-14.8); LYMPHOCYTES # (AUTO) 1.6 /CMM (0.8-4.8); LYMPHOCYTES % (AUTO) 22.5 % (20.0-44.0); MEAN CORPUSCULAR HEMOGLOBIN 24 PG (26.0-33.0); MEAN CORPUSCULAR HGB CONC 32 g/dl (31.0-36.0); MEAN CORPUSCULAR VOLUME 77 fL (82-100); MONOCYTES # (AUTO) 0.7 /CMM (0.1-1.30); MONOCYTES % (AUTO) 9.2 % (2.0-12.0); NEUTROPHILS # (AUTO) 4.8 /CMM (1.8-8.9); NEUTROPHILS % (AUTO) 67.6 % (43.0-81.0); PLATELET COUNT (AUTO) 178 /CMM (150-450); RDW COEFFICIENT OF VARIATION 24.2 (11.5-15.0); WHITE BLOOD COUNT (AUTO) 7.1 K/uL (4.3-11.0)
--- NOTE | 2016-10-12 09:40 | NUR ---
LANDSCAPING CREW LEADER: pt.is more awake now, A/Ox2, took breakfast by herself, SR,O2 sat. 91-95%, no pain
--- NOTE | 2016-10-12 13:20 | NUR ---
HAM CLERK: pt.is drowsy now,verbal reactive, can follow simple commands, no c/o, no pain, O2sat. 91-96% on 2L n/c, SR, BP WNL, refused for lunch now, said later.
[2016-10-12] MEDS: SOD FERRIC GLUC 125 MG in IV NS 0.9% 100 ML IV SCH (14:55)
--- NOTE | 2016-10-12 16:45 | NUR ---
HORIZONTAL DRILL OPERATOR: same neuro status, reactive well for verbal contact, but still drowsy,O2 sat WNL, SR, SBP 90-100, removed Nitro patch
--- NOTE | 2016-10-12 17:45 | NUR ---
FISCAL ACCOUNTANT: pt was transferred to Tele after full report for MADI Layton
--- NOTE | 2016-10-12 17:50 | NUR ---
TEACHER ADVENTURE EDUCATION NOTES RECEIVED PT FROM ICU NURSE IN STABLE CONDITION. WILL CONTINUE ADMISSION PROCESS.
[2016-10-12] MEDS ORDERED: SECONDARY IV SET 1 EA INFUS.SET MC ONE (18:21)
--- NOTE | 2016-10-12 18:30 | NUR ---
QUARRYING SPECIALIST CLOSING NOTES PT IN STABLE CONDITION. ON TELE MONITOR READING SINUS ANTHONY. NO SOB OR SIGNS OF DISTRESS. PICC LINE INTACT AND PATENT. FISH CATHETER IN PLACE AND DRAINING. PT ON 2L O2 VIA NC. WILL ENDORSE TO NIGHTSHIFT NURSE FOR HAVEN
--- NOTE | 2016-10-12 19:35 | NUR ---
TELE/RN NOTES RECEIVED PT. LYING IN BED RESTING. PT. IS EASILY AROUSABLE TO NAME AND TOUCH. AWAKE, ALERT AND ORIENTED X2. BREATHING EVEN AND UNLABORED ON 2LPM O2 VIA NC. NO SOB, RESPIRATORY DISTRESS OR COMPLAINTS OF PAIN NOTED AT THIS TIME. PT. WITH BENZOL STILL OPERATOR PRESENT AND INTACT. CURRENT RHYTHM = SINUS ANTHONY HR 57. PT. WITH RIGHT UPPER ARM PICC PRESENT, PATENT AND INTACT ADMINISTERING TO PT. D5 NS @ 50ML/HR. PT. WITH RIGHT WRIST 20 GAUGE SALINE LOCK PRESENT, PATENT AND INTACT. BED IN LOWEST POSITION, CALL LIGHT WITHIN REACH, WILL CONTINUE TO MONITOR.
[2016-10-12] MEDS: MONTELUKAST SODIUM (10MG) 10 MG TABLET PO SCH (21:58)
[2016-10-12] MEDS: GABAPENTIN 100 MG CAPSULE PO SCH (21:58)
[2016-10-13] VITALS: BP 158/66
[2016-10-13] MEDS: BLOOD SUGAR DIAGNOSTIC 1 EACH STRIP IN SCH ×4 (00:33→17:25)
[2016-10-13] MEDS: PIPERACILLIN /TAZOBACTAM 3.375 G in IV D5W 50 ML IV SCH ×3 (00:37→12:08)
[2016-10-13] MEDS: ALBUTEROL FS 2.5 MG/3 ML VIAL.NEB NEB SCH ×3 (01:53→13:30)
[2016-10-13] MEDS: IPRATROPIUM NEB FS 0.5 MG/2.5 ML AMPUL.NEB NEB SCH ×3 (01:53→13:30)
[2016-10-13] MEDS ORDERED: IV D5/ 0.9% NACL 1,000 ML IV ONE (03:33)
[2016-10-13] MEDS: IV D5/ 0.9% NACL 1,000 ML IV PRN (03:38)
[2016-10-13 04:00] VITALS: BP 153/65
--- NOTE | 2016-10-13 06:18 | NUR ---
TELE/RN NOTES PT. SITTING UP IN BED. AWAKE, ALERT AND ORIENTED X2. BREATHING EVEN AND UNLABORED ON 2LPM O2 VIA NC. NO SOB, RESPIRATORY DISTRESS OR COMPLAINTS OF PAIN NOTED AT THIS TIME AND THROUGHOUT SHIFT. PT. WITH COMMAND CENTER OFFICER PRESENT AND INTACT. CURRENT RHYTHM = SINUS RHYTHM HR 78. PT. WITH RIGHT UPPER ARM PICC PRESENT, PATENT AND INTACT ADMINISTERING TO PT. D5 NS @ 50ML/HR. ALL PT. NEEDS MET. PT. OFFLOADED. TURNED AND REPOSITIONED Q2H AND NEEDED. BED IN LOWEST POSITION, CALL LIGHT WITHIN REACH, WILL ENDORSE TO DAYSHIFT NURSE FOR CONTINUITY OF CARE.
[2016-10-13] MEDS: OLANZAPINE 5 MG TABLET PO SCH ×2 (06:55→16:21)
[2016-10-13] MEDS: DIVALPROEX SODIUM 250 MG TABLET.DR PO SCH ×2 (06:56→16:21)
[2016-10-13 07:15] VITALS: BP 160/73
--- NOTE | 2016-10-13 07:30 | NUR ---
AM RN NOTE Received patient awake, A/O X2 verbally responsive. No acute distress noted. Resp even and non-labored. PICC rashard intact. F/C intact and patent. Bed in low locked position. Will continue to monitor.
[2016-10-13 07:35] LABS: CALCIUM, SERUM 7.8 mg/dL (8.5-10.1); CREATININE 1.6 mg/dL (0.6-1.3)
[2016-10-13] MEDS: clonazePAM 0.5 MG TABLET PO SCH ×2 (08:42→16:21)
[2016-10-13] MEDS: DOCUSATE SODIUM 100 MG CAPSULE PO SCH (08:42)
[2016-10-13] MEDS: CALCIUM CARB 600MG /VIT D 1 EACH TABLET PO SCH (08:43)
[2016-10-13] MEDS: FERROUS SULFATE (325 MG) 325 MG/TAB TABLET PO SCH ×2 (08:43→16:21)
[2016-10-13] MEDS: ASPIRIN 81 MG TAB.CHEW PO SCH (08:43)
[2016-10-13] MEDS: CARVEDILOL 6.25 MG TABLET PO SCH ×2 (08:44→16:21)
[2016-10-13] MEDS: FLUTICASONE/SALMETEROL DISKUS IH SCH ×2 (08:46→17:25)
[2016-10-13] MEDS: NITROGLYCERIN 30 GM TUBE TP SCH (08:47)
[2016-10-13] MEDS: METHIMAZOLE (5MG) 5 MG TABLET PO SCH (08:56)
[2016-10-13] MEDS: PANTOPRAZOLE 40 MG VIAL IV SCH (08:56)
[2016-10-13] MEDS: Z GUARD REMEDY 2 OZ OINT TP SCH (08:56)
[2016-10-13 09:09] LABS: BASOPHILS % (AUTO) 0.2 % (0.0-2.0); EOSINOPHILS % (AUTO) 0.6 % (0.0-6.0); HEMATOCRIT 27 % (33-45); HEMOGLOBIN 8.7 g/dL (11.5-14.8); LYMPHOCYTES # (AUTO) 1.4 /CMM (0.8-4.8); LYMPHOCYTES % (AUTO) 17.4 % (20.0-44.0); MEAN CORPUSCULAR HEMOGLOBIN 25 PG (26.0-33.0); MEAN CORPUSCULAR HGB CONC 32 g/dl (31.0-36.0); MEAN CORPUSCULAR VOLUME 79 fL (82-100); MONOCYTES # (AUTO) 0.6 /CMM (0.1-1.30); NEUTROPHILS # (AUTO) 5.8 /CMM (1.8-8.9); NEUTROPHILS % (AUTO) 73.8 % (43.0-81.0); PLATELET COUNT (AUTO) 221 /CMM (150-450); RED BLOOD CELL COUNT(AUTO) 3.43 MIL/uL (4.0-5.2); WHITE BLOOD COUNT (AUTO) 7.9 K/uL (4.3-11.0)
[2016-10-13] MEDS ORDERED: SECONDARY IV SET 1 EA INFUS.SET MC ONE (14:26)
[2016-10-13] MEDS: SOD FERRIC GLUC 125 MG in IV NS 0.9% 100 ML IV SCH (14:29)
--- NOTE | 2016-10-13 15:00 | NUR ---
AM RN NOTE F/C was removed, pt voided large amount without any difficulty.
[2016-10-13 16:00] VITALS: BP_SYST 147; BP_DIAS 104; BP_DIAS 64
[2016-10-13 16:21] VITALS: BP 147/64
[2016-10-13] MEDS ORDERED: Nitroglycerin TP (16:23)
[2016-10-13] MEDS ORDERED: CLON0.3P TD (16:23)
[2016-10-13] MEDS ORDERED: IRON1CAP4 PO (16:23)
[2016-10-13] MEDS ORDERED: PANT40TA2 PO (16:24)
[2016-10-13] MEDS ORDERED: ASPI81TA2 PO (16:24)
--- NOTE | 2016-10-13 16:30 | NUR ---
AM RN NOTE Discharge order given by Marilu to Refugio rucker noted and carried out.
--- NOTE | 2016-10-13 17:15 | NUR ---
AM RN NOTE Patient awake, A/O X2 with confusion. Denies any pain at this time. Discharge paperwork done and report given to Ben BARRAZA @ [facility]. Belongings endorsed. Will continue to monitor.
[2016-10-13] MEDS: INSULIN REGULAR, HUMAN 100 UNIT/ML 3 ML VIAL SQ PRN (17:26)
--- NOTE | 2016-10-13 18:37 | NUR ---
AM RN NOTE Patient awake, denies any pain at this time and family at bedside. Report given to EMT's with paperwork. V/S taken by EMT's. PICC line removed and pt tolerated procedure well. MD aware about all lab results. Pt discharged/ left unit at this time as accompanied by EMT's via gurmiriam and family with all her belongings.
== END 2016-10-13 18:30 | DRG 280 ==
LOC: ER 17:39 → TELE 19:47 → MED 10-02 09:21 → ICU 10-03 22:40 → TELE 10-12 17:47 → MED 10-13 12:32
PROVIDERS: ADMIT Legal Medicine; ATTEND Legal Medicine
PROC: 02HV33Z Insertion of Infusion Device into Superior Vena Cava, Percutaneous Approach (ICD-10-PCS; 2016-10-04)
PROC: B548ZZA Ultrasonography of Superior Vena Cava, Guidance (ICD-10-PCS; 2016-10-04)
PROC: 5A09557 Assistance with Respiratory Ventilation, Greater than 96 Consecutive Hours, Continuous Positive Airway Pressure (ICD-10-PCS; 2016-10-04)
PROC: 30233N1 Transfusion of Nonautologous Red Blood Cells into Peripheral Vein, Percutaneous Approach (ICD-10-PCS; principal; 2016-10-10)
DX: I21.4 Non-ST elevation (NSTEMI) myocardial infarction (principal); N17.0 Acute kidney failure with tubular necrosis; J96.22 Acute and chronic respiratory failure with hypercapnia; G93.40 Encephalopathy, unspecified; J15.9 Unspecified bacterial pneumonia; K57.91 Diverticulosis of intestine, part unspecified, without perforation or abscess with bleeding; I13.0 Hypertensive heart and chronic kidney disease with heart failure and stage 1 through stage 4 chronic kidney disease, or unspecified chronic kidney disease; J44.1 Chronic obstructive pulmonary disease with (acute) exacerbation; J44.0 Chronic obstructive pulmonary disease with (acute) lower respiratory infection; E87.0 Hyperosmolality and hypernatremia; E11.649 Type 2 diabetes mellitus with hypoglycemia without coma; R55 Syncope and collapse; F03.90 Unspecified dementia, unspecified severity, without behavioral disturbance, psychotic disturbance, mood disturbance, and anxiety; E78.5 Hyperlipidemia, unspecified; I25.10 Atherosclerotic heart disease of native coronary artery without angina pectoris; J44.9 Chronic obstructive pulmonary disease, unspecified; M47.814 Spondylosis without myelopathy or radiculopathy, thoracic region; N18.3 Chronic kidney disease, stage 3 (moderate); I50.9 Heart failure, unspecified; E11.22 Type 2 diabetes mellitus with diabetic chronic kidney disease; E03.9 Hypothyroidism, unspecified; D69.6 Thrombocytopenia, unspecified; Z79.4 Long term (current) use of insulin; I95.9 Hypotension, unspecified; F09 Unspecified mental disorder due to known physiological condition; D50.0 Iron deficiency anemia secondary to blood loss (chronic)
CPT/HCPCS: 36415; 36569; 36600; 70450-TC; 71010-TC; 80048-TC; 80053-TC; 80061-TC; 80076-TC; 82728-TC; 82803-TC; 82962-TC; 83540-TC; 83735-TC; 84100-TC; 84439-TC; 84443-TC; 84484-TC; 85025-TC; 85027-TC; 85610-TC; 85730-TC; 86850-TC; 86921-TC; 87081-TC; 93307-TC; 94660; 94760-TC; 94799-TC; 97001-TC; A4606; A9560; C1751; C9113; J0360; J1265; J1815; J1940; J2543; J2916; J3475; J3480; J3490; J7030; J7040; J7042; J7050; J7060; J7070; P9016-BL; Z7610

== ENCOUNTER 2016-10-18 17:09 | Inpatient (IN) | payer MEDICARE, MEDICAID ==
[~2016-10-18] VITALS: Ht 157.5 cm; Wt 78.5 kg
[2016-10-18] VITALS (12 sets, daily range): BP systolic 56–164; BP diastolic 39–64
[~2016-10-18 17:09] MED LIST changes: +ASPI81TA2 PO; +CALC-883 PO; +CLON0.3P TD; +CLON0.5T4 PO; +DIVA250T4 PO; +INSU100V3 SQ; +IPRA3AMP INH; +IRON1CAP4 PO; +MAG30ORA PO; +Nitroglycerin TP; +OLAN5TAB3 PO; +PANT40TA2 PO
--- NOTE | 2016-10-18 17:14 | NUR ---
CODE SEPSIS CALLED
[2016-10-18] MEDS ORDERED: ACETAMINOPHEN 650 MG/SUPP.RECT RC ONE ×2 (17:17→17:30)
--- NOTE | 2016-10-18 17:38 | NUR ---
CALLED RT FOR ABG
--- NOTE | 2016-10-18 17:38 | NUR ---
ERWIN WILL BE HERE IN 30 MIN FOR MIDLINE PER ERICK BECK SUP.
[2016-10-18] MEDS ORDERED: ACET-2605 PO (17:43)
[2016-10-18] MEDS ORDERED: MAGN400O6 PO (17:43)
[2016-10-18] MEDS ORDERED: BLOO-668 IN (17:43)
[2016-10-18] MEDS ORDERED: ASPI81TA2 PO (17:43)
[2016-10-18] MEDS ORDERED: NITR1OIN2 TD (17:43)
[2016-10-18] MEDS ORDERED: CLON0.3P TD (17:43)
[2016-10-18] MEDS ORDERED: MULT-659 PO (17:43)
[2016-10-18] MEDS ORDERED: IRON1CAP4 PO (17:43)
[2016-10-18] MEDS ORDERED: PANT40TA4 PO (17:43)
[2016-10-18] MEDS ORDERED: AMIN30LI4 PO (17:43)
--- NOTE | 2016-10-18 17:45 | NUR ---
DR. BRIGGS AT BS WITH DR. CRUZ FOR EVAL.
--- NOTE | 2016-10-18 17:50 | NUR ---
MIDLINE NURSE AT BS.
--- NOTE | 2016-10-18 18:04 | NUR ---
RT AT BS FOR BIPAP/ABG
--- NOTE | 2016-10-18 18:05 | NUR ---
RT NOTE: LATE ENTRY: RECEIVED PATIENT IN ER AND PLACED ON BIPAP PER MD ORDER AFTER REPORTED ABG RESULTS. ALARMS VERIFIED AND AUDIBLE. AMBU BAG AT [facility]. PATIENT IS A KNOWN CO2 RETAINER. PER MD MAINTAIN [id number]%.
[2016-10-18 18:09] LABS: ABG BASE EXCESS 9.1 mmol/L; ABG OXYGEN SATURATION 96.7 % (92.0-98.5); ABG PCO2 95.9 mmHg (35.0-45.0); ABG PH 7.222 (7.350-7.450); ABG PO2 103.7 mmHg (75.0-100.0); ABG TOTAL HEMOGLOBIN 8.3 G/dL (12.0-16.0); COHb 1.2 % (0.5-1.5); MetHb 0.5 % (0.0-1.5); O2Hb 95.1 % (94.0-97.0); SITE, ABG Right Radial; VENT MODE, BG NON-REBREATHER
--- NOTE | 2016-10-18 18:25 | NUR ---
CALLED NURSING SUP. FOR ICU BED
[2016-10-18 18:38] LABS: BASOPHILS # (AUTO) 0.4 /CMM (0.0-0.2); BASOPHILS % (AUTO) 4.3 % (0.0-2.0); EOSINOPHILS % (AUTO) 0.1 % (0.0-6.0); HEMATOCRIT 25 % (33-45); HEMOGLOBIN 7.7 g/dL (11.5-14.8); LYMPHOCYTES # (AUTO) 0.9 /CMM (0.8-4.8); MEAN CORPUSCULAR HEMOGLOBIN 25 PG (26.0-33.0); MEAN CORPUSCULAR HGB CONC 31 g/dl (31.0-36.0); MEAN CORPUSCULAR VOLUME 80 fL (82-100); MONOCYTES # (AUTO) 0.6 /CMM (0.1-1.30); MONOCYTES % (AUTO) 6.2 % (2.0-12.0); NEUTROPHILS % (AUTO) 79.4 % (43.0-81.0); PLATELET COUNT (AUTO) 187 /CMM (150-450); RED BLOOD CELL COUNT(AUTO) 3.13 MIL/uL (4.0-5.2); WHITE BLOOD COUNT (AUTO) 8.9 K/uL (4.3-11.0)
--- NOTE | 2016-10-18 18:40 | NUR ---
PT STILL BEING WORKED ON. WILL TRY CT SCAN & CXR AROUND 1900.
--- NOTE | 2016-10-18 18:53 | NUR ---
CALLED RT TO CHECK BIPAP SETTINGS PT IS SATING 89%. PER RT TO INCREASE OXYGEN SETTINGS FROM 35% TO 100%
--- NOTE | 2016-10-18 18:54 | NUR ---
XRAY AT BS
[2016-10-18 18:59] LABS: LACTIC ACID 0.7 mmol/L (0.4-2.0)
[2016-10-18 19:00] LABS: APPEARANCE,URINE Clear (CLEAR); BILIRUBIN,URINE Negative (NEGATIVE); BLOOD, URINE Trace-lysed Ery/uL (NEGATIVE); COLOR,URINE Yellow (YELLOW); KETONES,URINE Negative (NEGATIVE); LEUKOCYTE ESTERASE ,URINE Negative (NEGATIVE); NITRITE, URINE Negative (NEGATIVE); PH,URINE 5.5 (5.0-8.0); PROTEIN,URINE 30 mg/dl (NEGATIVE); UGLUCOSE Negative (NEGATIVE); UROBILINOGEN,URINE 0.2 EU/dL (0.2)
--- NOTE | 2016-10-18 19:02 | NUR ---
PT TAKEN TO CT.
[2016-10-18 19:10] LABS: CALCIUM, SERUM 8.1 mg/dL (8.5-10.1); CREATININE 1.6 mg/dL (0.6-1.3); POTASSIUM 4.8 mmol/L (3.5-5.1)
[2016-10-18 19:14] LABS: INR 1.01 (0.87-1.13); PROTHROMBIN TIME 10.5 SECS (9.5-12.7)
[2016-10-18 19:17] LABS: ADD URINE CULTURE YES; BACTERIA,URINE Many /HPF (None Seen); RBC,URINE 0-2 /HPF (0-2); SQUAMOUS EPITHELIAL CELL,UR Moderate /HPF (None Seen); WBC,URINE 0-2 /HPF (0-3)
[2016-10-18 19:18] LABS: TROPONIN I 0.128 ng/mL (0.00-0.056)
--- NOTE | 2016-10-18 19:23 | NUR ---
REPORT GIVEN TO ARTURO BARRAZA FOR ICU-252
[2016-10-18 19:26] LABS: ALBUMIN 1.8 g/dL (3.4-5.0); BILIRUBIN,TOTAL 0.1 mg/dL (0.2-1.0)
[2016-10-18 19:27] LABS: TOTAL PROTEIN, SERUM 5.2 g/dL (6.4-8.2)
[2016-10-18] MEDS ORDERED: IV NS 0.9% 500 ML IV ONE (19:30)
[2016-10-18] MEDS ORDERED: IV SET PRIMARY 1 EA INFUS.SET MC ONE (19:30)
[2016-10-18] MEDS ORDERED: PIPERACILLIN /TAZOBACTAM 3.375 G VIAL IV ONE (19:30)
[2016-10-18] MEDS ORDERED: LEVOFLOXACIN 750 MG /D5W 150ML 150 ML IV ONE (19:30)
[2016-10-18] MEDS ORDERED: IV NS 0.9% 500 ML BAG IV ONE (19:30)
[2016-10-18] MEDS ORDERED: PIPERACILLIN /TAZOBACTAM 3.375 G in IV D5W 50 ML IV ONE (19:30)
--- NOTE | 2016-10-18 19:45 | NUR ---
RT AT BEDSIDE FOR ABG
--- NOTE | 2016-10-18 19:45 | NUR ---
DR. CATHERINE AT BEDSIDE TO EVBRODY PT.
[2016-10-18 19:58] LABS: ABG BASE EXCESS 5.2 mmol/L; ABG OXYGEN SATURATION 90.1 % (92.0-98.5); ABG PCO2 71.6 mmHg (35.0-45.0); ABG PH 7.278 (7.350-7.450); ABG TOTAL HEMOGLOBIN 7.1 G/dL (12.0-16.0); AaDO2 100.3 mmHg; COHb 1.5 % (0.5-1.5); MetHb 0.8 % (0.0-1.5); PEEP,BG 5 cm H2O; SITE, ABG Right Radial; VENT MODE, BG bipap
[2016-10-18] MEDS ORDERED: NOREPINEPHRINE 8 MG in IV D5W 500 ML IV ONE (20:30)
--- NOTE | 2016-10-18 20:54 | NUR ---
PT UNABLE TO CHEW, PT ON BIPAP, ALTERED. ER MD AWARE WITH ORDER TO CANCEL ASP 162MG.
--- NOTE | 2016-10-18 20:56 | NUR ---
levophed not infused in er, meds endorsed and handed to ROAD GANG SUPERVISORMADI Jason
--- NOTE | 2016-10-18 20:56 | NUR ---
pt transported to icu room 252, report updated to precision agriculture techniciankandace Jason.
--- NOTE | 2016-10-18 21:00 | NUR ---
ICU/RN- PT BI FROM ER W/ DX OF RESP FAILURE AND SYNCOPE. PT LETHARGIC. OPENS EYES TO PAIN. ON BIPAP 18/5 R 16, FIO2 35% W/ O2 SAT 100%. RESP EVEN AND UNLABORED. WILL MONITOR FOR S/SX OF RESP DISTRESS. ON MONITOR W/ SR 60S. MID LINE IN KAILEE PATENT AND INTACT. BED ALARM ON. BED LOW AND IN LOCKED POSITION. WILL MONITOR PT ACCORDINGLY.
[2016-10-18] MEDS ORDERED: IV SET PRIMARY PUMP SET 1 EA INFUS.SET MC ONE (21:24)
[2016-10-18] MEDS ORDERED: PANTOPRAZOLE 40 MG VIAL ONE (21:24)
[2016-10-18] MEDS ORDERED: ENOXAPARIN SODIUM 40 MG/0.4 ML DISP.SYRIN SQ ONE (21:25)
[2016-10-18] MEDS ORDERED: ACETAMINOPHEN 650 MG/SUPP.RECT RC PRN (21:30)
[2016-10-18] MEDS ORDERED: NOREPINEPHRINE 8 MG in IV D5W 500 ML IV PRN (21:30)
[2016-10-18] MEDS ORDERED: IV D5/ 0.9% NACL 1,000 ML IV PRN (21:30)
[2016-10-18] MEDS ORDERED: PANTOPRAZOLE 40 MG VIAL IV SCH (21:30)
[2016-10-18] MEDS ORDERED: ONDANSETRON HCL/PF 4 MG/2 ML VIAL IV PRN (21:30)
[2016-10-18] MEDS ORDERED: ENOXAPARIN SODIUM 40 MG/0.4 ML DISP.SYRIN SQ SCH (21:30)
[2016-10-18] MEDS ORDERED: FEE PK DOSING 1 MIN EA MC ONE (21:33)
[2016-10-18] MEDS: ENOXAPARIN SODIUM 30 MG/0.3 ML DISP.SYRIN SQ SCH (21:36)
[2016-10-18] MEDS ORDERED: SECONDARY IV SET 1 EA INFUS.SET MC ONE (22:20)
[2016-10-18] MEDS: VANCOMYCIN 0.75 GM in IV D5W 250 ML IV SCH (22:24)
[2016-10-19] VITALS (65 sets, daily range): BP systolic 108–200; BP diastolic 46–165
[2016-10-19] MEDS ORDERED: PIPERACILLIN /TAZOBACTAM 3.375 G in IV D5W 50 ML IV SCH ×2
--- NOTE | 2016-10-19 | NUR ---
ICU/RN- PT CONSTANTLY PULLING ON LINES AND BIPAP. OBTAINED ORDERS FOR BILAT SOFT WRIST RESTRAINTS.
[2016-10-19] MEDS ORDERED: SECONDARY IV SET 1 EA INFUS.SET MC ONE ×2 (01:07→08:49)
[2016-10-19] MEDS: PIPERACILLIN /TAZOBACTAM 2.25 G in IV D5W 50 ML IV SCH ×5 (01:09→23:50)
--- NOTE | 2016-10-19 03:00 | NUR ---
ICU/RN- FISH CATHETER INSERTED. TOLERATED WELL.
[2016-10-19 05:06] LABS: BASOPHILS % (AUTO) 0.7 % (0.0-2.0); EOSINOPHILS % (AUTO) 0.5 % (0.0-6.0); HEMATOCRIT 23 % (33-45); LYMPHOCYTES # (AUTO) 1.5 /CMM (0.8-4.8); LYMPHOCYTES % (AUTO) 24.7 % (20.0-44.0); MEAN CORPUSCULAR HEMOGLOBIN 26 PG (26.0-33.0); MEAN CORPUSCULAR HGB CONC 31 g/dl (31.0-36.0); MEAN CORPUSCULAR VOLUME 83 fL (82-100); MONOCYTES # (AUTO) 0.9 /CMM (0.1-1.30); MONOCYTES % (AUTO) 14.5 % (2.0-12.0); NEUTROPHILS # (AUTO) 3.7 /CMM (1.8-8.9); NEUTROPHILS % (AUTO) 59.6 % (43.0-81.0); PLATELET COUNT (AUTO) 186 /CMM (150-450); RDW COEFFICIENT OF VARIATION 23.7 (11.5-15.0); RED BLOOD CELL COUNT(AUTO) 2.71 MIL/uL (4.0-5.2); WHITE BLOOD COUNT (AUTO) 6.3 K/uL (4.3-11.0)
[2016-10-19 05:20] LABS: CALCIUM, SERUM 7.9 mg/dL (8.5-10.1); CREATININE 1.6 mg/dL (0.6-1.3); HEMOGLOBIN 6.9 g/dL (11.5-14.8); MAGNESIUM 1.5 mg/dL (1.8-2.4); POTASSIUM 4.3 mmol/L (3.5-5.1)
--- NOTE | 2016-10-19 06:15 | NUR ---
ICU/RN- INFORMED DR BRIGGS ABOUT CRITICAL HGB OF 6.9. MD ORDERED TO TRANSFUSE 2 UNITS OF PRBC. ORDERS CARRIED OUT.
[2016-10-19 06:35] LABS: EOSINOPHILS % (MANUAL) 1 % (0-4); LYMPHOCYTES % (MANUAL) 10 % (16-48); MONOCYTES % (MANUAL) 15 % (0-11.0); NEUTROPHILS % (MANUAL) 74 (42-76)
[2016-10-19 06:37] LABS: ANISOCYTOSIS 3+; HYPOCHROMASIA 2+; PLATELET ESTIMATE ADEQUATE
[2016-10-19] MEDS ORDERED: IV D5/0.45 NACL 1,000 ML IV PRN (06:53)
--- NOTE | 2016-10-19 07:00 | NUR ---
ICU/RN - ALL NEEDS ATTENDED AND MET. PT IS ALERT TO NAME AND FOLLOWS COMMANDS. NO ACUTE DISTRESS NOTED. WILL ENDORSE TO AM SHIFT FOR CONTINUATION OF CARE.
--- NOTE | 2016-10-19 07:30 | NUR ---
ICU/RN: PT RECEIVED IN BED, ON BIPAP; SET TO ORDERED SETTINGS, TOLERATED WELL, BREATHING EVEN AND UNLABORED, ALERT TO SELF, ABLE TO COMMUNICATE NEEDS, ON BILAT SOFT WRIST RESTRAINTS WITH PERIODS OF CONFUSION, TALKS TO SELF. LUNG SOUNDS DIMINISHED, BOWEL SOUNDS + X4 QUAD, +1 PITTING EDEMA NOTED ON BILAT UPPER AND LOWER EXTREMITIES. GOPI MIDLINE, FLUSHED PATENT. FC DRAINING CLEAR YELLOW URINE TO GRAVITY. SUCTION SET UP. ALARM SOUNDS AUDIBLE. FALL PREC IN PLACE. WILL CONT TO MONITOR PT.
--- NOTE | 2016-10-19 08:25 | NUR ---
WOUND CARE CONSULT PATIENT SEEN AND SKIN INTEGRITY ASSESSMENT DONE. PLEASE SEE POWER SHEAR OPERATOR ASSESSMENT IN PCS FOR TODAY ALONG WITH ALL RECOMMENDATIONS. PATIENT WITH CURRENT DENZEL AT 10, ABLE TO ASSIST WITH TURNING, BUT DOES NEED PROMPTING. SHE IS ABLE TO MOVE HER FEET AND LEGS AND UPPER EXTREMITIES, THERE ARE SOFT WRIST RESTRAINTS IN PLACE. 1ST STEP LOW AIRLOSS MATTRESS NOT INDICATED AT THIS TIME DUE TO SAFETY AND FALL RISK. SHE IS CURRENTLY ON A JANA REM PRESSURE REDISTRIBUTION GELFOAM MATTRESS FOR SKIN MANGEMENT. CONTINUE TURNING AND REPOSITIONING PATIENT CONDITION PERMITS, AND CONTINUE BILATERAL HEEL FLOATING. PATIENT CURRENTLY ON BIPAP. ALL SKIN MANAGEMENT DISCUSSED WITH NURSING AT THE BEDSIDE. MD IN AGREEMENT WITH PLAN OF CARE. Addendum: 10/19/16 at 0829 by CORY CHING WNDNU Amended: Links added.
[2016-10-19] MEDS ORDERED: Z GUARD REMEDY 2 OZ OINT TP PRN (08:30)
--- NOTE | 2016-10-19 08:45 | NUR ---
ICU/RN: DR BRIGGS ROUNDS; ABN LABS, RESP STATUS DISCUSSED - ORDERS FOR EMERGENT BLOOD TRANSFUSION NOTED. ASSISTANT PRINCIPAL UPDATED. CADEN CONT TO MONITOR PT
[2016-10-19] MEDS ORDERED: IV NS 0.9% 250 ML IV ONE (08:50)
[2016-10-19] MEDS ORDERED: BLOOD IV SET 1 EA INFUS.SET MC ONE (08:50)
[2016-10-19] MEDS: Magnesium 1GM/D5W 100ML PREMIX 100 ML IV SCH ×2 (08:58→10:02)
[2016-10-19] MEDS: Z GUARD REMEDY 2 OZ OINT TP SCH (08:59)
[2016-10-19] MEDS: HYDROGEL DRESSING 90 GM TUBE TP SCH (08:59)
[2016-10-19] MEDS ORDERED: ASPIRIN 81 MG TAB.CHEW PO SCH (09:00)
[2016-10-19 10:05] LABS: ABG BASE EXCESS 10.2 mmol/L; ABG OXYGEN SATURATION 84.4 % (92.0-98.5); ABG PCO2 70.9 mmHg (35.0-45.0); ABG TOTAL HEMOGLOBIN 7.8 G/dL (12.0-16.0); MetHb 1.3 % (0.0-1.5); O2Hb 81.6 % (94.0-97.0); SITE, ABG Right Radial; VENT MODE, BG 2L N/C
[2016-10-19] MEDS: LISINOPRIL (10MG) 10 MG TABLET PO SCH (12:25)
[2016-10-19] MEDS ORDERED: DEXTROSE 50%-WATER 50 ML DISP.SYRIN IV PRN (12:30)
[2016-10-19] MEDS: CLONIDINE HCL 0.1 MG TABLET PO PRN ×2 (14:45→22:47)
[2016-10-19] MEDS: VANCOMYCIN 0.75 GM in IV D5W 250 ML IV SCH (15:22)
[2016-10-19] MEDS: IPRATROPIUM NEB FS 0.5 MG/2.5 ML AMPUL.NEB NEB SCH ×3 (16:13→23:10)
[2016-10-19] MEDS: ALBUTEROL HALF STRENGTH 1.25 MG/3 ML VIAL.NEB NEB SCH ×3 (16:13→23:10)
[2016-10-19] MEDS: methylPREDNISolone SOD SUCC 125 MG/2ML VIAL IV SCH ×2 (16:33→22:16)
[2016-10-19] MEDS: CARVEDILOL 6.25 MG TABLET PO SCH (16:34)
--- NOTE | 2016-10-19 16:45 | NUR ---
ICU/RN: PT CONTINUES TO REFUSE NGT; ATTEMPTS TO HIT AND STRIKE STAFF. PT ABLE TO SWALLOW PO MEDS WITH NO S/S ASPIRATION.
[2016-10-19] MEDS: BLOOD SUGAR DIAGNOSTIC 1 EACH STRIP IN SCH ×2 (17:08→23:26)
[2016-10-19] MEDS ORDERED: IV SET PRIMARY PUMP SET 1 EA INFUS.SET MC ONE (17:08)
[2016-10-19] MEDS: INSULIN REGULAR, HUMAN 100 UNIT/ML 3 ML VIAL SQ PRN ×2 (17:57→23:31)
[2016-10-19] MEDS: NITROGLYCERIN 30 GM TUBE TP SCH (18:53)
--- NOTE | 2016-10-19 19:26 | NUR ---
ICU/RN: PT SITTING IN BED, NO DISTRESS NOTED; IVF INFUSING WELL. TOLERATING CURRENT BIPAP SETTINGS. BLOOD TRANSFUSION COMPLETE WITH NO AE NOTED. CARE ENDORSED TO PM RN FOR HAVEN
[2016-10-19] MEDS: PANTOPRAZOLE 40 MG VIAL IV SCH (22:16)
[2016-10-19] MEDS: ENOXAPARIN SODIUM 30 MG/0.3 ML DISP.SYRIN SQ SCH (22:20)
[2016-10-19] MEDS ORDERED: hydrALAZINE HCL IV 20 MG VIAL ONE (23:14)
--- NOTE | 2016-10-19 23:15 | NUR ---
SUPERVISOR PUMPING STATION: CALLED AND NOTIFIED DR. BRIGGS OF PERSISTENT ELEVATED SBP BETWEEN 180s-200 AND SINUS BRADYCARDIA WT HR LOWEST 35 (NOT SUSTAINED) TO LOW 60s. DISCUSSED CURRENT BP MEDS WT NEW ORDERS FOR PARAMETERS FOR COREG AND CATAPRES. CATAPRES WAS RECENTLY GIVEN ORDERED BY MOUTH AND ABLE TO SWALLOW. MD WT ADDITIONAL ORDER TO GIVE HYDRALAZINE 10MG IV Q4H PRN FOR SBP ABOVE 160. NOTED AND CARRIED OUT. WILL ADMINISTER HYDRALAZINE.
[2016-10-19] MEDS: hydrALAZINE HCL IV 20 MG VIAL IV PRN (23:21)
[2016-10-19 23:50] LABS: CREATININE 1.2 mg/dL (0.6-1.3); POTASSIUM 4.2 mmol/L (3.5-5.1)
[2016-10-19 23:53] LABS: MAGNESIUM 1.7 mg/dL (1.8-2.4); PHOSPHORUS 2.3 mg/dL (2.5-4.9)
[2016-10-20] VITALS (30 sets, daily range): BP systolic 44–190; BP diastolic 18–133
--- NOTE | 2016-10-20 00:10 | NUR ---
NETWORK CONTROL TECHNICIAN: REASSESSED AFTER HYDRALAZINE AND CATAPRES WT BP NOW IMPROVED AT 136/72, HR=78. PT REMAINS ON BIPAP WT OCCASIONAL SCREAMING AND RESTLESSNESS MANIFESTED BY TRYING TO REMOVE MASK. BILAT. SOFT WRIST RESTRAINTS IN PLACE. NOTED WT GOOD CIRCULATION AND NO SKIN BREAKDOWN WHEN RESTRAINTS WERE RELEASED AND CHECKED. SAFETY PRECAUTION NOTED AT ALL TIMES.
[2016-10-20] MEDS: ALBUTEROL HALF STRENGTH 1.25 MG/3 ML VIAL.NEB NEB SCH ×5 (03:47→20:12)
[2016-10-20] MEDS: IPRATROPIUM NEB FS 0.5 MG/2.5 ML AMPUL.NEB NEB SCH ×5 (03:47→20:12)
[2016-10-20] MEDS ORDERED: hydrALAZINE HCL IV 20 MG VIAL ONE (04:00)
[2016-10-20] MEDS: hydrALAZINE HCL IV 20 MG VIAL IV PRN ×2 (04:06→10:04)
[2016-10-20] MEDS ORDERED: methylPREDNISolone SOD SUCC 125 MG/2ML VIAL ONE (04:20)
--- NOTE | 2016-10-20 04:30 | NUR ---
SPIKE MAKER: REASSESSED BP AFTER GIVEN HYDRALAZINE WT GOOD EFFECT (NZ=433/68, HR=68). REMAINED ALERT AND AWAKE. ABLE TO MAKE NEEDS KNOWN WT CONFUSION. TOLERATING BIPAP WT SETTINGS ORDERED. NO ACUTE DISTRESS. NO C/O PAIN.
[2016-10-20 04:43] LABS: BASOPHILS % (AUTO) 0.2 % (0.0-2.0); HEMATOCRIT 32 % (33-45); HEMOGLOBIN 10.1 g/dL (11.5-14.8); LYMPHOCYTES # (AUTO) 0.7 /CMM (0.8-4.8); MEAN CORPUSCULAR HEMOGLOBIN 25 PG (26.0-33.0); MEAN CORPUSCULAR HGB CONC 32 g/dl (31.0-36.0); MEAN CORPUSCULAR VOLUME 80 fL (82-100); MONOCYTES # (AUTO) 0.1 /CMM (0.1-1.30); MONOCYTES % (AUTO) 1.2 % (2.0-12.0); NEUTROPHILS # (AUTO) 4.1 /CMM (1.8-8.9); NEUTROPHILS % (AUTO) 83.6 % (43.0-81.0); PLATELET COUNT (AUTO) 216 /CMM (150-450); RED BLOOD CELL COUNT(AUTO) 3.99 MIL/uL (4.0-5.2); WHITE BLOOD COUNT (AUTO) 4.9 K/uL (4.3-11.0)
[2016-10-20 05:05] LABS: TROPONIN I 0.029 ng/mL (0.00-0.056)
[2016-10-20 05:06] LABS: ALBUMIN 2.1 g/dL (3.4-5.0); BILIRUBIN,TOTAL 0.3 mg/dL (0.2-1.0); CALCIUM, SERUM 8.1 mg/dL (8.5-10.1); CREATININE 1.2 mg/dL (0.6-1.3); MAGNESIUM 1.6 mg/dL (1.8-2.4); PHOSPHORUS 2.1 mg/dL (2.5-4.9); TOTAL PROTEIN, SERUM 6.2 g/dL (6.4-8.2)
[2016-10-20] MEDS: PIPERACILLIN /TAZOBACTAM 2.25 G in IV D5W 50 ML IV SCH (05:21)
[2016-10-20] MEDS: methylPREDNISolone SOD SUCC 125 MG/2ML VIAL IV SCH ×3 (05:21→21:45)
[2016-10-20] MEDS: BLOOD SUGAR DIAGNOSTIC 1 EACH STRIP IN SCH ×3 (05:32→17:50)
[2016-10-20] MEDS: INSULIN REGULAR, HUMAN 100 UNIT/ML 3 ML VIAL SQ PRN ×3 (05:33→17:51)
--- NOTE | 2016-10-20 06:40 | NUR ---
SEXTON HELPER: REMAINED ALERT AND AWAKE. ABLE TO FOLLOW SIMPLE COMMANDS. TOLERATING BIPAP SETTINGS WT NO ACUTE DISTRESS. NO C/O PAIN. CH=059/60, HR=65. SR ON WATERPROOF BAG SEWER. BILAT. SOFT WRIST RESTRAINTS IN PLACE WT GOOD CIRCULATION AND NO SKIN BREAKDOWN. ALL NEEDS MET. SAFETY PRECAUTION NOTED AT ALL TIMES.
--- NOTE | 2016-10-20 07:00 | NUR ---
ICU INITIAL NOTES RECEIVED PT IN BED, AWAKE A/O SELF, ABLE TO FOLLOW COMMANDS, ABLE TO MAKE NEEDS KNOWN, PT HAS PERIODS OF CONFUSION, PT IS ON BIPAP 185 R16 FIO2 35%, SATING WELL, NO S/S OF RESP.DISTRESS OR SOB NOTED AT THIS TIME, TOLERATING SETTING WELL, PT IS ON MONITOR SHOWING SR @ 67 BPM, NO C/O OF CHEST PAIN OR DISCOMFORT AT THIS TIME, PT HAS BILATERAL SOFT WRIST RESTRAINTS, RELEASED AND SKIN CHECK COMPLETED, PT HAS F/C DRAINING MARIIA URINE TO GRAVITY, PT HAS KAILEE MIDLINE, WITH GOOD BLOOD RETURN, C/D/I/PATENT, FLUSHING WELL, INFUSING D51/2NS@50ML/HR, NO S/S OF INFECTION/ INFILTRATION NOTED AT THIS TIME, ALL SAFETY MEASURES IN PLACE AT ALL TIMES, CALL LIGHT WITHIN EASY REACH, WILL MONITOR PT CLOSELY FOR CHANGES
[2016-10-20] MEDS: Z GUARD REMEDY 2 OZ OINT TP SCH (08:09)
[2016-10-20] MEDS: HYDROGEL DRESSING 90 GM TUBE TP PRN (08:09)
[2016-10-20] MEDS: CARVEDILOL 6.25 MG TABLET PO SCH (08:10)
[2016-10-20] MEDS: NITROGLYCERIN 30 GM TUBE TP SCH ×2 (08:10→17:30)
[2016-10-20] MEDS: LISINOPRIL (10MG) 10 MG TABLET PO SCH (08:10)
[2016-10-20] MEDS: HYDROGEL DRESSING 90 GM TUBE TP SCH (08:14)
--- NOTE | 2016-10-20 08:30 | NUR ---
pt placed off bipap on to 2 lpm. zero distress noted.
[2016-10-20] MEDS ORDERED: NIFEdipine XL (30MG) 30 MG TAB PO SCH (09:00)
[2016-10-20] MEDS: VANCOMYCIN 0.75 GM in IV D5W 250 ML IV SCH (09:07)
[2016-10-20 09:52] LABS: ABG BASE EXCESS 7.2 mmol/L; ABG PCO2 40.3 mmHg (35.0-45.0); ABG PH 7.503 (7.350-7.450); ABG PO2 64.2 mmHg (75.0-100.0); ABG TOTAL HEMOGLOBIN 10.8 G/dL (12.0-16.0); AaDO2 87.9 mmHg; COHb 0.7 % (0.5-1.5); MetHb 1.4 % (0.0-1.5); SITE, ABG Left Radial; VENT MODE, BG NASAL CANNULA
[2016-10-20] MEDS ORDERED: DIVALPROEX SODIUM 250 MG TABLET.DR PO SCH (10:30)
[2016-10-20] MEDS ORDERED: OLANZAPINE 5 MG TABLET PO SCH (11:00)
--- NOTE | 2016-10-20 11:00 | NUR ---
THORACENTESIS ON HOLD DUE TO CONSENT NOT SIGNED YET, AWAITING FOR 2 MDS TO SIGN , PT DAUGHTER DOES NOT WANT TO SIGN IT , JM
--- NOTE | 2016-10-20 11:00 | NUR ---
RN NOTES BS 221, 4 UNITS GIVEN
[2016-10-20] MEDS ORDERED: SECONDARY IV SET 1 EA INFUS.SET MC ONE (11:04)
[2016-10-20] MEDS: PIPERACILLIN /TAZOBACTAM 3.375 G in IV D5W 50 ML IV SCH ×3 (11:09→23:53)
[2016-10-20] MEDS ORDERED: IV SET PRIMARY PUMP SET 1 EA INFUS.SET MC ONE (11:21)
[2016-10-20] MEDS: Magnesium 1GM/D5W 100ML PREMIX 100 ML IV SCH ×2 (11:39→12:33)
[2016-10-20] MEDS ORDERED: NEUTRA PHOS 1 POWD.PACKET PO ONE (12:30)
--- NOTE | 2016-10-20 13:15 | NUR ---
RN NOTES MAG AND PHOSPHATE REPLACED
--- NOTE | 2016-10-20 14:29 | NUR ---
MD ORDERS RECEIVED ORDERS TO DC IV FLUIDS
--- NOTE | 2016-10-20 16:00 | NUR ---
RN NOTES PT IS EXTREMELY AGITATED, TRYING TO REMOVED TUBES AND LINES, PT CONTINUOUSLY TRIES TO GET OUT OF BED, SCREAMING AND HITTING, TRIED TO REORIENTED PT, PT IS HAVING HALLUCINATIONS AND DELUSIONS. RESTRAINTS PLACED, ADJUNCT SOCIOLOGY PROFESSOR AND MULTIPLE LAUNCH ROCKET SYSTEM CREWMEMBER AWARE.
--- NOTE | 2016-10-20 17:13 | NUR ---
RN NOTES SPOKE WITH DR. BRIGGS REGARDING PTS BEHAVIOR, ORDERED HALDOL IM. NEW ORDERS ACK
[2016-10-20] MEDS: HALOPERIDOL LACTATE INJ 5 MG/ML VIAL IM PRN (17:30)
--- NOTE | 2016-10-20 17:59 | NUR ---
RN NOTES BS 197, 3 UNITS GIVEN
[2016-10-20] MEDS: PANTOPRAZOLE 40 MG VIAL IV SCH (21:45)
[2016-10-20] MEDS: DIVALPROEX SODIUM 250 MG TABLET.DR PO SCH (22:58)
[2016-10-20] MEDS: ENOXAPARIN SODIUM 30 MG/0.3 ML DISP.SYRIN SQ SCH (22:59)
[2016-10-20] MEDS: OLANZAPINE 5 MG TABLET PO SCH (22:59)
[2016-10-20] MEDS ORDERED: IV NS 0.9% 250 ML IV ONE (23:52)
[2016-10-21] VITALS (21 sets, daily range): BP systolic 134–185; BP diastolic 61–91
[2016-10-21] MEDS ORDERED: IV NS 0.9% 250 ML IV PRN
[2016-10-21] MEDS: INSULIN REGULAR, HUMAN 100 UNIT/ML 3 ML VIAL SQ PRN ×4 (00:06→17:29)
--- NOTE | 2016-10-21 00:10 | NUR ---
ICU/TOP TAPER MACHINE PT'S BLOOD SUGAR IS 188, THIS WAS COVERED BY SLIDING SCALE. WILL CONTINUE TO MONITOR PT'S BLOOD SUGAR PER MD ORDERS.
[2016-10-21] MEDS: IPRATROPIUM NEB FS 0.5 MG/2.5 ML AMPUL.NEB NEB SCH ×7 (00:31→23:16)
[2016-10-21] MEDS: ALBUTEROL HALF STRENGTH 1.25 MG/3 ML VIAL.NEB NEB SCH ×7 (00:31→23:16)
[2016-10-21 03:14] LABS: CALCIUM, SERUM 8.1 mg/dL (8.5-10.1); CREATININE 1.4 mg/dL (0.6-1.3); MAGNESIUM 2.1 mg/dL (1.8-2.4); PHOSPHORUS 3.2 mg/dL (2.5-4.9); POTASSIUM 3.4 mmol/L (3.5-5.1)
--- NOTE | 2016-10-21 03:40 | NUR ---
ICU/ROVING FRAME TENDER VANCO TROUGH IS 12, CHARGE NURSE AWARE VANCO WAS HUNG UP. PT APPEARS COMFORTABLE NO ACUTE DISTRESS SEEN. WILL CONTINUE TO MONITOR THIS PT.
[2016-10-21] MEDS: VANCOMYCIN 0.75 GM in IV D5W 250 ML IV SCH (04:24)
[2016-10-21] MEDS: methylPREDNISolone SOD SUCC 125 MG/2ML VIAL IV SCH ×3 (04:30→21:41)
[2016-10-21] MEDS: hydrALAZINE HCL IV 20 MG VIAL IV PRN (04:30)
[2016-10-21] MEDS: PIPERACILLIN /TAZOBACTAM 3.375 G in IV D5W 50 ML IV SCH ×3 (04:50→17:28)
--- NOTE | 2016-10-21 05:06 | NUR ---
ICU/X RAY NURSE PT'S BLOOD PRESSURE HAS BEEN IN THE 170'S FOR THE PAST HOUR, CHARGE NURSE AWARE. APRESOLINE 10MG GIVEN BY NURSE. CURRENT BLOOD PRESSURE IS 169/75. NEW BP IS 160/80. WILL CONTINUE TO MONITOR THIS.
[2016-10-21] MEDS: HALOPERIDOL LACTATE INJ 5 MG/ML VIAL IM PRN ×2 (05:19→14:13)
[2016-10-21] MEDS: BLOOD SUGAR DIAGNOSTIC 1 EACH STRIP IN SCH ×4 (05:20→17:27)
--- NOTE | 2016-10-21 05:20 | NUR ---
ICU/HEARING INSTRUMENT SPECIALIST PT BECAME VERY AGITATED AND RESTLESS, YELLING OUT, DIFFICULT TO CONTROL. HALDOL WAS GIVEN IM FOR THIS. WILL MONITOR PT CLOSELY.
--- NOTE | 2016-10-21 06:18 | NUR ---
ICU/SORT SUPERVISOR BLOOD SUGAR IS 166, THIS WAS COVERED WITH SLIDING SCALE. WILL CONTINUE TO MONITOR THIS PT. PT AT THIS TIME HAS A POSITIVE OUTCOME WITH THE HALDOL GIVEN EARLIER. PT NOW APPEARS TO BE RESTING COMFORTABLE, SATURATION IS 99%.
--- NOTE | 2016-10-21 08:00 | NUR ---
BUCKLE SORTER; ASSESSMENT RECEIVED PT AWAKE AND ORIENTEDX1. PT IS CONFUSED RESPONSE TO NAME AND IS ABLE TO FOLLOW SIMPLE COMMANDS. PT DENIES ANY PAIN AT THIS TIME. PT APPEARS TO BE MORE CALM AND COOPERATIVE. PT CONTINUES ON ABHILASH SOFT WRIST RESTRAINS FOR PT SAFETY. PT CONTINUES TO ATTEMPT TO REMOVE NASAL CANULA, IV AND DRAIN TECHNICIAN. FISH CATH INTACT DRAINING TO GRAVITY CLEAR YELLOW URINE.
[2016-10-21] MEDS: Z GUARD REMEDY 2 OZ OINT TP SCH (08:51)
[2016-10-21] MEDS: OLANZAPINE 5 MG TABLET PO SCH ×2 (08:51→21:43)
[2016-10-21] MEDS: LISINOPRIL (10MG) 10 MG TABLET PO SCH (08:51)
[2016-10-21] MEDS: DIVALPROEX SODIUM 250 MG TABLET.DR PO SCH ×2 (08:51→21:43)
[2016-10-21] MEDS: NITROGLYCERIN 30 GM TUBE TP SCH ×2 (08:52→17:41)
[2016-10-21] MEDS: NIFEdipine XL (30MG) 30 MG TAB PO SCH (08:52)
[2016-10-21] MEDS: HYDROGEL DRESSING 90 GM TUBE TP SCH (08:53)
[2016-10-21] MEDS ORDERED: POTASSIUM CHLORIDE 20 MEQ TAB.PRT.SR PO SCH (10:00)
[2016-10-21] MEDS ORDERED: CLONIDINE HCL 0.3 MG/24H PTWK 1 EA PATCH TD SCH (12:30)
--- NOTE | 2016-10-21 14:30 | NUR ---
waffle machine operator notes Admitted a transfer patient from ICU, on tele monitor SR heart rate of 79, no complaint of pain or discomfort noted, nor chest pain. IV on the KAILEE midline intact and patent. Patient is alert and Oriented x 1, confused. On 02 @ 2lpm via NC and tolerated well. Velasco in placed attached to drainage bag. Kept patient clean and comfortable in bed, call light with in patient reach, will continue to monitor accordingly.
--- NOTE | 2016-10-21 14:42 | NUR ---
BED SPRING MAKER; TRANSFER TRANSFERRED PT TO TELEMETRY ROOM 309-1 VIA BED WITH ACLS PROTOCOL. REPORT GIVEN TO ERIC FOR HAVEN. PT TOLERATED TRANSFER
--- NOTE | 2016-10-21 19:19 | NUR ---
mixing and dispensing supervisor closing notes All needs provided, attended, and anticipated. Kept patient clean and comfortable in bed, call light within patient reach, will continue to monitor accordingly. Endorsed to next shift RN to continue care. On tele monitor SR heart rate of 76.
--- NOTE | 2016-10-21 19:25 | NUR ---
TELE/RN NOTES RECEIVED PT. SITTING UP IN BED. AWAKE, ALERT AND ORIENTED TO SELF. BREATHING EVEN AND UNLABORED ON 2LPM O2 VIA NC. NO SOB, RESPIRATORY DISTRESS OR COMPLAINTS OF PAIN NOTED AT THIS TIME. PT. WITH EXTERNAL CENTRIFUGE SEPARATOR OPERATOR PRESENT AND INTACT. CURRENT RHYTHM = SINUS RHYTHM HR 85. PT. WITH FISH CATHETER PRESENT, PATENT AND INTACT DRAINING CLEAR YELLOW URINE. BED IN LOWEST POSITION, SIDE RAILS UP X2, BED ALARM ON, CALL LIGHT WITHIN REACH. WILL CONTINUE TO MONITOR.
[2016-10-21] MEDS ORDERED: SECONDARY IV SET 1 EA INFUS.SET MC ONE (21:34)
[2016-10-21] MEDS: ENOXAPARIN SODIUM 30 MG/0.3 ML DISP.SYRIN SQ SCH (21:40)
[2016-10-21] MEDS: PANTOPRAZOLE 40 MG VIAL IV SCH (21:41)
[2016-10-21] MEDS: VANCOMYCIN 1 GM in IV D5W 250 ML IV SCH (21:44)
[2016-10-22] VITALS: BP 134/70
[2016-10-22] MEDS: BLOOD SUGAR DIAGNOSTIC 1 EACH STRIP IN SCH ×4 (00:26→17:43)
[2016-10-22] MEDS: PIPERACILLIN /TAZOBACTAM 3.375 G in IV D5W 50 ML IV SCH ×4 (00:29→17:44)
[2016-10-22] MEDS: INSULIN REGULAR, HUMAN 100 UNIT/ML 3 ML VIAL SQ PRN ×4 (00:29→17:40)
[2016-10-22] MEDS: ALBUTEROL HALF STRENGTH 1.25 MG/3 ML VIAL.NEB NEB SCH ×6 (02:40→23:30)
[2016-10-22] MEDS: IPRATROPIUM NEB FS 0.5 MG/2.5 ML AMPUL.NEB NEB SCH ×6 (02:40→23:30)
[2016-10-22 04:00] VITALS: BP 143/74
[2016-10-22] MEDS: methylPREDNISolone SOD SUCC 125 MG/2ML VIAL IV SCH ×2 (05:13→12:44)
--- NOTE | 2016-10-22 06:28 | NUR ---
TELE/RN NOTES PT. LYING IN BED RESTING. BREATHING EVEN AND UNLABORED ON 2LPM O2 VIA NC. NO SOB, RESPIRATORY DISTRESS OR COMPLAINTS OF PAIN NOTED AT THIS TIME. NO S/S OF HYPO/HYPERGLYCEMIA NOTED AT THIS TIME AND THROUGHOUT SHIFT. PT. WITH EXTERNAL BARIATRIC PROGRAM COORDINATOR PRESENT AND INTACT. CURRENT RHYTHM = SINUS RHYTHM HR 78. PT. WITH FISH CATHETER PRESENT, PATENT AND INTACT DRAINING CLEAR YELLOW URINE. ALL PT. NEEDS MET. PT. OFFLOADED. TURNED AND REPOSITIONED Q2H AND NEEDED. BED IN LOWEST POSITION, SIDE RAILS UP X2, BED ALARM ON, CALL LIGHT WITHIN REACH. WILL ENDORSE TO DAYSHIFT NURSE FOR CONTINUITY OF CARE.
[2016-10-22 06:31] LABS: EOSINOPHILS % (AUTO) 0.1 % (0.0-6.0); HEMATOCRIT 33 % (33-45); HEMOGLOBIN 10.2 g/dL (11.5-14.8); LYMPHOCYTES # (AUTO) 0.9 /CMM (0.8-4.8); LYMPHOCYTES % (AUTO) 12.4 % (20.0-44.0); MEAN CORPUSCULAR HEMOGLOBIN 25 PG (26.0-33.0); MEAN CORPUSCULAR HGB CONC 31 g/dl (31.0-36.0); MEAN CORPUSCULAR VOLUME 81 fL (82-100); MONOCYTES # (AUTO) 0.4 /CMM (0.1-1.30); NEUTROPHILS % (AUTO) 82.5 % (43.0-81.0); PLATELET COUNT (AUTO) 194 /CMM (150-450); RDW COEFFICIENT OF VARIATION 22.4 (11.5-15.0); RED BLOOD CELL COUNT(AUTO) 4.01 MIL/uL (4.0-5.2); WHITE BLOOD COUNT (AUTO) 7.3 K/uL (4.3-11.0)
[2016-10-22 06:38] LABS: CALCIUM, SERUM 7.7 mg/dL (8.5-10.1); CREATININE 1.5 mg/dL (0.6-1.3); MAGNESIUM 2.1 mg/dL (1.8-2.4); POTASSIUM 4.3 mmol/L (3.5-5.1)
--- NOTE | 2016-10-22 07:38 | NUR ---
RN NOTES PATIENT IN BED, ASLEEP BUT EASILY AROUSABLE, NO S/SX OF DISCOMFORT NOTED, SAFETY MEASURES IN PLACED, ALL NEEDS ATTENDED, CALL LIGHT WITHIN REACH, WILL CONTINUE TO MONITOR.
[2016-10-22 08:00] VITALS: BP 140/69
[2016-10-22] MEDS: DIVALPROEX SODIUM 250 MG TABLET.DR PO SCH ×2 (08:38→21:51)
[2016-10-22] MEDS: OLANZAPINE 5 MG TABLET PO SCH ×2 (08:39→21:51)
[2016-10-22] MEDS: NIFEdipine XL (30MG) 30 MG TAB PO SCH (08:44)
[2016-10-22] MEDS: LISINOPRIL (10MG) 10 MG TABLET PO SCH (08:44)
[2016-10-22] MEDS: NITROGLYCERIN 30 GM TUBE TP SCH ×2 (08:45→17:42)
[2016-10-22] MEDS: Z GUARD REMEDY 2 OZ OINT TP SCH (08:46)
[2016-10-22] MEDS: HYDROGEL DRESSING 90 GM TUBE TP SCH (08:46)
--- NOTE | 2016-10-22 14:00 | NUR ---
RN MS NOTES PATIENT ATE LUNCH AND TOLERATED WELL, RESTRAINT WAS REMOVED, THEN AFTER LUNCH, PATIENT REFUSED TO BE PUT BACK ON THE RESTRAINT, SAT ON THE EDGE OF THE BED, REFUSED TO LAY DOWN ON THE BED, PATIENT THEN PULLED OUT FISH CATHETER WITH OUTPUT OF 1050, NOTED WITH SOME BLEEDING, REFUSED TO RE-INSERT FISH CATHETER, WILL OFFER AGAIN LATER, FOR NOW PATIENT IS SITTING ON THE CHAIR, IN FRONT OF THE NURSES STATION FOR CLOSE MONITORING, WILL CONTINUE TO MONITOR. Addendum: 10/22/16 at 1448 by BRITTNEY ROBBINS RN ADDENDUM: DR. BRIGGS MADE AWARE, AWAITING FOR REPLY.
--- NOTE | 2016-10-22 15:46 | NUR ---
RT NOTE: PATIENT IN WHEELCHAIR AT THIS TIME REFUSES TO GO BACK INTO ROOM WITH NO DISTRESS NOTED. RESPIRATORY TREATMENT DEFERRED. WILL FOLLOW UP WITH PATIENT LATER. NURSE AWARE.
[2016-10-22] MEDS: predniSONE 20 MG TABLET PO SCH (15:51)
[2016-10-22 16:00] VITALS: BP 155/63
--- NOTE | 2016-10-22 16:00 | NUR ---
RN MS NOTES RECEIVED ORDER FROM EDUARDO DE LEÓN TO KEEP FISH CATH OUT FOR NOW AND TO MONITOR FOR URINE OUTPUT.
[2016-10-22] MEDS: VANCOMYCIN 1 GM in IV D5W 250 ML IV SCH (16:11)
--- NOTE | 2016-10-22 19:30 | NUR ---
RN OPENING NOTES RECEIVED REPORT FROM BAYRON BARRAZA, BRITTNEY. Pt IS TEMPORARILY IN RM 326-2 WHILE RM 309 IS BEING CLEANED. FOUND Pt SITTING IN CHAIR. NO S/S OF ACUTE DISTRESS OR SOB NOTED. Pt IS AWAKE, VERBAL, BUT IS A/OX1, CONFUSED WITH DEMENTIA. Pt HAS BILATERAL SOFT WRIST RESTRAINTS. Pt DID NOT WANT THEM ON AND WAS TRYING TO GET OUT OF BED DUE TO THE RESTRAINTS BEING ON. SPOKE WITH THE Pt ABOUT THE REASON WHY THE RESTRAINTS ARE NECESSARY FOR HER SAFETY. AGREED TO HAVE JUST ONE RESTRAINT ON WHILE SHE WATCHES TV IN BED. Pt IS AMBULATORY BUT GAIT IS UNSTEADY AND NEEDS ASSISTANCE. Pt PULLED OUT IFSH CATHETER EARLIER TODAY, IS AWARE AND ORDERED FOR IT TO BE DC'd. IV ACCESS ON KAILEE MIDLINE. Pt IS VERY CONFUSED AND AGITATED AND KEEPS TRYING TO GET OUT OF BED. SAFETY MEASURES IN PLACE. WILL SEE IF WE CAN GET A SITTER FOR THE Pt. WILL CONTINUE TO MONITOR Pt THROUGHOUT THE NIGHT.
--- NOTE | 2016-10-22 19:37 | NUR ---
RN MS NOTES PATIENT IN BED, ALERT AND ORIENTED WITH EPISODES OF CONFUSION, NEEDS ATTENDED AND MET, NO DISTRESS NOTED, PATIENT IS IN BED, WITH SOFT RESTRAINT ON, ATTEMPTED TO PULL MIDLINE ON KAILEE, PATIENT STILL NOTED WITH SOME BLEEDING FROM VAGINA DUE TO TRAUMA OF PULLING OUT F/C, PATIENT HAD A WET DIAPER X1, NEEDS ATTENDED AND MET, WILL ENDORSE TO GARDE MANAGER FOR HAVEN.
[2016-10-22 20:00] VITALS: BP 135/57
--- NOTE | 2016-10-22 20:05 | NUR ---
RN NOTES Pt REFUSED 2000 VITALS. IS BECOMING MORE AGITATED, AND SLIGHTLY COMBATIVE WHEN TRYING TO PUT ON THE BP CUFF ON HER ARM. Pt WOULD TAKE IT OFF AND THROW IT TO THE SIDE. YELLING TO LEAVE HER ALONE.
[2016-10-22] MEDS: ENOXAPARIN SODIUM 30 MG/0.3 ML DISP.SYRIN SQ SCH (21:30)
--- NOTE | 2016-10-22 21:30 | NUR ---
RN NOTES HELD LOVENOX DUE TO POSSIBLE PROCEDURE TOMORROW. Pt SCHEDULED TO GET A THORACENTESIS.
[2016-10-22] MEDS: PANTOPRAZOLE 40 MG VIAL IV SCH (21:53)
--- NOTE | 2016-10-22 22:30 | NUR ---
RN NOTES Pt REFUSING RESTRAINTS, BECOMES MORE AGITATED WITH THE RESTRAINTS ON. ONCE Pt HAD THEM OFF, SHE CALMED DOWN. HAD THE SIDE RAILS UP AND BED ALARM ON. Pt WAS KEPT BUSY IN BED FOLDING THE RESTRAINTS NEATLY AND THE BLOOD PRESSURE CUFF WELL. Pt FINALLY WENT TO BED. NO RESTRAINTS ON AT THIS TIME. WILL CONTINUE TO MONITOR Pt FOR SAFETY.
--- NOTE | 2016-10-23 | NUR ---
RN NOTES ACCUCHECK BG 334. ADMINISTERED 8UN OF INSULIN PER SLIDING SCALE. WILL CONTINUE TO MONITOR Pt's BG LEVELS.
[2016-10-23] MEDS: PIPERACILLIN /TAZOBACTAM 3.375 G in IV D5W 50 ML IV SCH ×4 (00:07→17:25)
[2016-10-23] MEDS: BLOOD SUGAR DIAGNOSTIC 1 EACH STRIP IN SCH ×4 (00:07→17:25)
[2016-10-23] MEDS: INSULIN REGULAR, HUMAN 100 UNIT/ML 3 ML VIAL SQ PRN ×4 (00:21→17:35)
[2016-10-23] MEDS: IPRATROPIUM NEB FS 0.5 MG/2.5 ML AMPUL.NEB NEB SCH ×6 (03:23→23:37)
[2016-10-23] MEDS: ALBUTEROL HALF STRENGTH 1.25 MG/3 ML VIAL.NEB NEB SCH ×6 (03:23→23:37)
--- NOTE | 2016-10-23 06:55 | NUR ---
RN CLOSING NOTES NO SIGNIFICANT CHANGES DURING THE NIGHT. NO S/S OF ACUTE DISTRESS OR SOB NOTED. ALL NEEDS MET AND ATTENDED TO. SAFETY MEASURES IN PLACE. NO RESTRAINTS ON AT THIS TIME. SIDE RAILS UP AND BED ALARM ON. WILL ENDORSE TO DAYSHIFT RN FOR Pt's HAVEN.
--- NOTE | 2016-10-23 07:23 | NUR ---
RN MS NOTES PATIENT IN BED, ASLEEP BUT EASILY AROUSABLE, NO S/SX OF PAIN OR DISCOMFORT NOTED, NO SOB NOTED, ON 2LPM VIA NC AND TOLERATING WELL, ALL NEEDS ATTENDED, CALL LIGHT PLACED WITHIN REACH, SAFETY MEASURES IN PLACED, WILL CONTINUE TO MONITOR.
[2016-10-23 07:41] LABS: BASOPHILS % (AUTO) 0.1 % (0.0-2.0); EOSINOPHILS % (AUTO) 0.1 % (0.0-6.0); HEMATOCRIT 33 % (33-45); HEMOGLOBIN 10.4 g/dL (11.5-14.8); LYMPHOCYTES # (AUTO) 1.1 /CMM (0.8-4.8); LYMPHOCYTES % (AUTO) 15.1 % (20.0-44.0); MEAN CORPUSCULAR HEMOGLOBIN 25 PG (26.0-33.0); MEAN CORPUSCULAR HGB CONC 31 g/dl (31.0-36.0); MEAN CORPUSCULAR VOLUME 80 fL (82-100); MONOCYTES # (AUTO) 0.8 /CMM (0.1-1.30); MONOCYTES % (AUTO) 11.4 % (2.0-12.0); NEUTROPHILS # (AUTO) 5.2 /CMM (1.8-8.9); NEUTROPHILS % (AUTO) 73.3 % (43.0-81.0); PLATELET COUNT (AUTO) 176 /CMM (150-450); RDW COEFFICIENT OF VARIATION 21.8 (11.5-15.0); RED BLOOD CELL COUNT(AUTO) 4.19 MIL/uL (4.0-5.2); WHITE BLOOD COUNT (AUTO) 7.1 K/uL (4.3-11.0)
[2016-10-23 07:56] LABS: CALCIUM, SERUM 7.5 mg/dL (8.5-10.1); CREATININE 1.5 mg/dL (0.6-1.3); POTASSIUM 4.9 mmol/L (3.5-5.1)
[2016-10-23 08:00] VITALS: BP 108/54
[2016-10-23] MEDS: predniSONE 20 MG TABLET PO SCH (08:40)
[2016-10-23] MEDS: DIVALPROEX SODIUM 250 MG TABLET.DR PO SCH ×2 (08:40→21:47)
[2016-10-23] MEDS: OLANZAPINE 5 MG TABLET PO SCH ×2 (08:41→21:47)
[2016-10-23] MEDS: Z GUARD REMEDY 2 OZ OINT TP SCH (08:42)
[2016-10-23] MEDS: NIFEdipine XL (30MG) 30 MG TAB PO SCH (08:46)
[2016-10-23] MEDS: LISINOPRIL (10MG) 10 MG TABLET PO SCH (08:46)
[2016-10-23] MEDS: NITROGLYCERIN 30 GM TUBE TP SCH ×2 (08:50→17:26)
[2016-10-23] MEDS: HYDROGEL DRESSING 90 GM TUBE TP SCH (08:51)
[2016-10-23] MEDS: VANCOMYCIN 1 GM in IV D5W 250 ML IV SCH (10:04)
--- NOTE | 2016-10-23 12:36 | NUR ---
RN MS NOTES CONSENT FORM SIGNED BY DR. YAP AND DR. BRIGGS, THORACENTESIS IS SCHEDULED FOR 1300, WILL CONTINUE TO MONITOR.
--- NOTE | 2016-10-23 14:00 | NUR ---
RN MS NOTES THORACENTESIS OF LEFT LUNG COMPLETED, FLUID COLLECTED SENT TO LABORATORY FOR FURTHER TESTING, PATIENT IN BED RESTING, DENIES PAIN OR DISCOMFORT AT THIS TIME, ALL NEEDS ATTENDED AND MET, CALL LIGHT PLACED WITHIN REACH, WILL CONTINUE TO MONITOR.
[2016-10-23 15:11] LABS: APPEARANCE,SPUN,BODY FLUID CLEAR (CLEAR)
[2016-10-23 16:00] VITALS: BP 130/54
[2016-10-23 17:01] LABS: WBC, BODY FLUID 61 /cu. mm. (0-200)
[2016-10-23 17:03] LABS: POLYNUCLEAR, BODY FLUID 5 % (0-25)
[2016-10-23 17:24] LABS: GLUCOSE,BODY FLUID 187 mg/dL
[2016-10-23 17:36] LABS: PROTEIN, BODY FLUID 8.3 G/DL
--- NOTE | 2016-10-23 18:32 | NUR ---
RN MS NOTES PATIENT IN BED, ALERT AND ORIENTED, WITH EPISODES OF CONFUSION, S/P THORACENTESIS AND TOLERATED WELL, NO DISTRESS NOTED, NO COMPLAINT OF PAIN OR DISCOMFORT, ALL DUE MEDS GIVEN ORDERED, KAILEE MIDLINE PATENT AND INTACT, SKIN CARE AND PERICARE PROVIDED, ALL NEEDS ATTENDED AND MET, SAFETY MEASURES WITHIN REACH, CALL LIGHT WITHIN REACH, WILL ENDORSE TO SHEET METAL SUPERVISOR FOR HAVEN.
--- NOTE | 2016-10-23 19:20 | NUR ---
RN OPEN NOTES RECEIVED PATIENT AWAKE SITTING ON BED. A/O X2. NO SIGNS OF DISTRESS OR DISCOMFORT. BREATHING EVEN AND UNLABORED. ON 2LPM O2 VIA NC. PATIENT S/P THORACENTESIS WITH 440ML OUTPUT. PER RN PATIENT TOLERATED WELL. PT HAS KAILEE MIDLINE, PATENT AND INTACT, NO SIGNS OF REDNESS OR INFILTRATION. BED IN LOW LOCKED POSITION WITH SIDE RAILS X3. CALL LIGHT WITHIN REACH. WILL CONTINUE TO MONITOR.
[2016-10-23 20:00] VITALS: BP 147/64
[2016-10-23] MEDS: PANTOPRAZOLE 40 MG VIAL IV SCH (21:47)
[2016-10-23] MEDS: ENOXAPARIN SODIUM 30 MG/0.3 ML DISP.SYRIN SQ SCH (22:05)
--- NOTE | 2016-10-24 | NUR ---
RN NOTES DID NOT RENEW RESTRAINT ORDER TO TO PATIENT NOW BEING COOPERATIVE AND NO LONGER MEETING REQUIREMENTS.
[2016-10-24] MEDS: BLOOD SUGAR DIAGNOSTIC 1 EACH STRIP IN SCH ×2 (00:59→06:40)
[2016-10-24] MEDS: PIPERACILLIN /TAZOBACTAM 3.375 G in IV D5W 50 ML IV SCH ×3 (00:59→12:00)
[2016-10-24] MEDS ORDERED: IPRATROPIUM NEB FS 0.5 MG/2.5 ML AMPUL.NEB ONE (03:20)
[2016-10-24] MEDS: IPRATROPIUM NEB FS 0.5 MG/2.5 ML AMPUL.NEB NEB SCH ×3 (03:42→10:57)
[2016-10-24] MEDS: ALBUTEROL HALF STRENGTH 1.25 MG/3 ML VIAL.NEB NEB SCH ×3 (03:43→10:57)
--- NOTE | 2016-10-24 07:25 | NUR ---
RN MS OPENING NOTES RECEIVED PATIENT IN BED, AWAKE, HEAD OF BED ELEVATED, NO SOB OR DISTRESS NOTED, ON O2 2 LPM VIA NC AND TOLERATED WELL. A/O X2, VERBALLY RESPONSIVE AND ABLE TO MAKE NEEDS KNOWN. IV INTACT AND PATENT. KEPT PATIENT CLEAN AND COMFORTABLE IN BED, CALL LIGHT WITHIN PATIENT REACH. WILL CONTINUE TO MONITOR ACCORDINGLY.
--- NOTE | 2016-10-24 07:35 | NUR ---
RN CLOSING NOTES PATIENT AWAKE SITTING IN CHAIR. A/O X2. NO SIGNS OF DISTRESS OR DISCOMFORT. BREATHING EVEN AND UNLABORED. ON 2LPM O2 VIA NC. PATIENT JUST PULLED OUT KAILEE MIDLINE @ 0645, INFORMED AM SHIFT AND CHARGE. NO SIGNIFICANT CHANGES THROUGH THE NIGHT. ALL NEEDS MET. BED IN LOW LOCKED POSITION WITH SIDE RAILS X3. CALL LIGHT WITHIN REACH. ENDORSED TO AM SHIFT FOR HAVEN.
[2016-10-24 08:00] VITALS: BP 148/64
[2016-10-24] MEDS: predniSONE 20 MG TABLET PO SCH (09:22)
[2016-10-24] MEDS: DIVALPROEX SODIUM 250 MG TABLET.DR PO SCH (09:22)
[2016-10-24] MEDS: OLANZAPINE 5 MG TABLET PO SCH (09:22)
[2016-10-24] MEDS: LISINOPRIL (10MG) 10 MG TABLET PO SCH (09:23)
[2016-10-24] MEDS: NIFEdipine XL (30MG) 30 MG TAB PO SCH (09:23)
[2016-10-24 09:32] LABS: CALCIUM, SERUM 8.3 mg/dL (8.5-10.1); CREATININE 1.3 mg/dL (0.6-1.3); POTASSIUM 3.6 mmol/L (3.5-5.1)
[2016-10-24] MEDS ORDERED: VANCOMYCIN 1 GM in IV D5W 250 ML IV SCH (10:00)
[2016-10-24] MEDS: HYDROGEL DRESSING 90 GM TUBE TP PRN (10:12)
[2016-10-24 10:26] VITALS: BP 148/64
[2016-10-24] MEDS: NITROGLYCERIN 30 GM TUBE TP SCH (10:26)
[2016-10-24] MEDS: HYDROGEL DRESSING 90 GM TUBE TP SCH (10:28)
[2016-10-24] MEDS: Z GUARD REMEDY 2 OZ OINT TP SCH (10:31)
== END 2016-10-24 13:30 | DRG 871 ==
LOC: ER 17:11 → ICU 20:02 → TELE 10-21 14:30 → MED 10-22 08:08
PROVIDERS: ADMIT Legal Medicine; ATTEND Legal Medicine
PROC: 5A09457 Assistance with Respiratory Ventilation, 24-96 Consecutive Hours, Continuous Positive Airway Pressure (ICD-10-PCS; principal; 2016-10-18)
PROC: 05H533Z Insertion of Infusion Device into Right Subclavian Vein, Percutaneous Approach (ICD-10-PCS; 2016-10-18)
PROC: 30233N1 Transfusion of Nonautologous Red Blood Cells into Peripheral Vein, Percutaneous Approach (ICD-10-PCS; 2016-10-19)
PROC: 0W9B3ZZ Drainage of Left Pleural Cavity, Percutaneous Approach (ICD-10-PCS; 2016-10-23)
DX: A41.9 Sepsis, unspecified organism (principal); I50.23 Acute on chronic systolic (congestive) heart failure; I21.4 Non-ST elevation (NSTEMI) myocardial infarction; G93.40 Encephalopathy, unspecified; J69.0 Pneumonitis due to inhalation of food and vomit; J96.22 Acute and chronic respiratory failure with hypercapnia; J90 Pleural effusion, not elsewhere classified; E87.0 Hyperosmolality and hypernatremia; I13.0 Hypertensive heart and chronic kidney disease with heart failure and stage 1 through stage 4 chronic kidney disease, or unspecified chronic kidney disease; J44.1 Chronic obstructive pulmonary disease with (acute) exacerbation; J44.0 Chronic obstructive pulmonary disease with (acute) lower respiratory infection; R65.20 Severe sepsis without septic shock; E11.22 Type 2 diabetes mellitus with diabetic chronic kidney disease; E11.649 Type 2 diabetes mellitus with hypoglycemia without coma; E66.01 Morbid (severe) obesity due to excess calories; N18.9 Chronic kidney disease, unspecified; D50.0 Iron deficiency anemia secondary to blood loss (chronic); E03.9 Hypothyroidism, unspecified; E78.5 Hyperlipidemia, unspecified; E83.42 Hypomagnesemia; E86.0 Dehydration; F03.90 Unspecified dementia, unspecified severity, without behavioral disturbance, psychotic disturbance, mood disturbance, and anxiety; Z68.31 Body mass index [BMI] 31.0-31.9, adult
CPT/HCPCS: 36415; 36569; 36600; 70450-TC; 71010-TC; 76604-TC; 76942-TC; 80048-TC; 80053-TC; 80076-TC; 80202-TC; 81000-TC; 82962-TC; 83605-TC; 83735-TC; 83880; 84100-TC; 84155-TC; 84484-TC; 85025-TC; 85730-TC; 86850-TC; 86921-TC; 87040-TC; 87081-TC; 87086-TC; 89051-TC; 92521; 94660; 94799-TC; A4606; A6248; C9113; J0360; J1630; J1650; J1815; J2543; J2930; J3370; J3475; J3490; J7040; J7042; J7050; J7060; P9016-BL; Z7610

== ENCOUNTER 2017-04-16 16:52 | Inpatient (IN) | payer MEDICAID, MEDICARE ==
[~2017-04-16] VITALS: Ht 160 cm; Wt 72.6 kg
[~2017-04-16 16:52] MED LIST changes: +ACET-2605 PO; -AMIN30LI2 PO; +AMIN30LI4 PO; -BISA10SU8 RC; +BLOO-668 IN; -CRAN425C PO; -FERR-58 PO; -LEVO250T59 PO; -MAGN400O4 PO; +MAGN400O6 PO; +MULT-659 PO; +NITR1OIN2 TD; -Nitroglycerin TP; -PANT40TA2 PO; +PANT40TA4 PO; -PRED20TA PO
--- NOTE | 2017-04-16 17:17 | NUR ---
SENT BY PMD FOR PNA CONFIRMED BY CHEST XRAY TODAY FROM [facility]
[2017-04-16] MEDS ORDERED: CEFTRIAXONE 1GM BAG (ER ONLY) 50 ML IV ONE ×2 (17:55→18:00)
[2017-04-16] MEDS ORDERED: LEVOFLOXACIN 750 MG /D5W 150ML 150 ML IV ONE ×2 (17:55→18:00)
[2017-04-16] MEDS ORDERED: ALBU1.257 IH (17:57)
[2017-04-16] MEDS ORDERED: IPRA0.2S9 IH (17:57)
[2017-04-16] MEDS ORDERED: NA P133E RC (17:57)
[2017-04-16] MEDS ORDERED: NIFE90TA37 PO (17:57)
[2017-04-16] MEDS ORDERED: CRAN425C PO (17:57)
[2017-04-16] MEDS ORDERED: BISA10SU8 RC (17:57)
[2017-04-16 17:59] LABS: BASOPHILS # (AUTO) 0.1 /CMM (0.0-0.2); BASOPHILS % (AUTO) 0.5 % (0.0-2.0); EOSINOPHILS % (AUTO) 0.2 % (0.0-6.0); HEMATOCRIT 29 % (33-45); HEMOGLOBIN 9.1 g/dL (11.5-14.8); LYMPHOCYTES # (AUTO) 1.7 /CMM (0.8-4.8); LYMPHOCYTES % (AUTO) 13.1 % (20.0-44.0); MEAN CORPUSCULAR HEMOGLOBIN 21 PG (26.0-33.0); MEAN CORPUSCULAR HGB CONC 31 g/dl (31.0-36.0); MEAN CORPUSCULAR VOLUME 68 fL (82-100); MONOCYTES % (AUTO) 7.7 % (2.0-12.0); NEUTROPHILS # (AUTO) 10.1 /CMM (1.8-8.9); NEUTROPHILS % (AUTO) 78.5 % (43.0-81.0); PLATELET COUNT (AUTO) 156 /CMM (150-450); RDW COEFFICIENT OF VARIATION 14.3 (11.5-15.0); RED BLOOD CELL COUNT(AUTO) 4.36 MIL/uL (4.0-5.2); WHITE BLOOD COUNT (AUTO) 12.9 K/uL (4.3-11.0)
[2017-04-16] MEDS ORDERED: IV NS 0.9% 1,000 ML BAG IV ONE (18:00)
[2017-04-16 18:10] LABS: CALCIUM, SERUM 8.5 mg/dL (8.5-10.1); CARBON DIOXIDE 29 mmol/L (21-32); CHLORIDE 106 mmol/L (98-107); CREATININE 1.6 mg/dL (0.6-1.3); GLUCOSE 116 mg/dL (74-106); POTASSIUM 3.8 mmol/L (3.5-5.1); SODIUM SERUM 142 mmol/L (136-145); UREA NITROGEN, BLOOD 35 mg/dL (7-18)
[2017-04-16 18:13] LABS: PROTHROMBIN TIME 10.4 SECS (9.5-12.7)
[2017-04-16 18:23] LABS: ALANINE AMINOTRANSFERASE 14 U/L (12-78); ALBUMIN 2.8 g/dL (3.4-5.0); ALKALINE PHOSPHATASE 67 U/L (46-116); ASPARTATE AMINOTRANSFERASE 25 U/L (15-37); BILIRUBIN,DIRECT 0.1 mg/dL (0.0-0.2); BILIRUBIN,TOTAL 0.4 mg/dL (0.2-1.0); TOTAL PROTEIN, SERUM 6.6 g/dL (6.4-8.2)
[2017-04-16 18:25] LABS: TROPONIN I < 0.017 ng/mL (0.00-0.056)
--- NOTE | 2017-04-16 18:31 | NUR ---
PAGED ALLYSSA BOLANOS.
[2017-04-16 18:46] LABS: BAND % (MANUAL) 10 % (0.0-5.0); EOSINOPHILS % (MANUAL) 1 % (0-4); LYMPHOCYTES % (MANUAL) 12 % (16-48); MONOCYTES % (MANUAL) 9 % (0-11.0); NEUTROPHILS % (MANUAL) 68 (42-76)
[2017-04-16] MEDS ORDERED: VANCOMYCIN 1 GM in IV D5W 250 ML IV ONE (19:00)
--- NOTE | 2017-04-16 19:28 | NUR ---
GAVE REPORT TO TANESHA FOR HAVEN
--- NOTE | 2017-04-16 19:29 | NUR ---
Assumed care of pt. pt lying in bed w/ resp even & unlabored, nad noted. IV flds w/ antibiotics continue to be infusing. Awaiting admission.
--- NOTE | 2017-04-16 19:53 | NUR ---
aircraft technician at bedside for blood draw.
--- NOTE | 2017-04-16 19:58 | NUR ---
Report given to MADI [place] for HAVEN, pt admission to tele [phone].
[2017-04-16 20:30] VITALS: BP 126/49
[2017-04-16] MEDS ORDERED: ALBUTEROL FS 2.5 MG/3 ML VIAL.NEB NEB PRN (20:30)
[2017-04-16] MEDS ORDERED: IPRATROPIUM NEB FS 0.5 MG/2.5 ML AMPUL.NEB NEB PRN (20:30)
--- NOTE | 2017-04-16 20:30 | NUR ---
WINDOW UNIT AIR CONDITIONING MECHANIC OPENING NOTES: RECEIVED PT FROM ED. PT IS A/OX1 WITH PERIODS OF CONFUSION. PT IS ON 2LPM VIA NC AND IS TOLERATING WELL. PT IS ON DIAPER AND IS INCONTINENT. PT HAS R FOREARM 20G AND HAS NORMAL SALINE RUNNING. 1L OF BAG ALMOST FINISHED. PT ALSO HAS VANCO TO BE FINISHED. PT RECEIVED LEVOFLAXIN AND ROCEPHIN IN ED. CALL LIGHT WITHIN PT'S REACH. BED KEPT IN LOW, LOCKED POSITION, AND SIDE RAILS X 2 UP. BED ALARM ACTIVATED. HOB ELEVATED. WILL CONTINUE TO MONITOR PT.
[2017-04-16] MEDS ORDERED: FEE PK DOSING 1 MIN EA MC ONE (20:40)
[2017-04-16] MEDS ORDERED: ONDANSETRON HCL/PF 4 MG/2 ML VIAL IV PRN (21:00)
[2017-04-16] MEDS: ZOSYN IVPB 2.25 G in IV D5W 50ml IV SCH (21:43)
--- NOTE | 2017-04-16 21:49 | NUR ---
MS BARRAZA NOTES: SPOKE WITH DR. BRIGGS AND MENTIONED PATIENT IS DIABETIC. DR. BRIGGS ORDERED ACCU CHECKS LOW SLIDING SCALE NOW AND WOULD LIKE TO KEEP THE FLUIDS AT NORMAL SALINE INSTEAD OF D5NS. Addendum: 04/17/17 at 0607 by YAEL HERNANDEZ RN IVON BARRAZA NOTES NOT MS
[2017-04-16] MEDS: IV NS 0.9% 1,000 ML IV PRN (21:52)
[2017-04-16 22:00] VITALS: BP 126/49
[2017-04-16] MEDS: BLOOD SUGAR DIAGNOSTIC 1 EACH STRIP IN SCH (22:19)
[2017-04-16] MEDS ORDERED: DEXTROSE 50%-WATER 50 ML DISP.SYRIN IV PRN (22:30)
[2017-04-16] MEDS ORDERED: INSULIN REGULAR, HUMAN 100 UNIT/ML 3 ML VIAL ONE (22:42)
[2017-04-16] MEDS: INSULIN REGULAR, HUMAN 100 UNIT/ML 3 ML VIAL SQ PRN (23:16)
--- NOTE | 2017-04-16 23:17 | NUR ---
MS BARRAZA NOTES: PT'S BLOOD SUGAR WAS 161. 3 UNITS OF INSULIN WAS ADMINISTERED. WILL CONTINUE TO MONITOR PT. Addendum: 04/17/17 at 0014 by YAEL HERNANDEZ RN INSULIN WAS MANUALLY ADMINISTERED DUE TO PT BEING NEW ADMISSION AND INSULIN WAS TAKEN FROM THINNER SPRAYER. Addendum: 04/17/17 at 0607 by YAEL HERNANDEZ RN IVON BARRAZA NOTES NOT MS
[2017-04-17] VITALS (7 sets, daily range): BP systolic 119–153; BP diastolic 51–61
[2017-04-17] MEDS: ZOSYN IVPB 2.25 G in IV D5W 50ml IV SCH ×4 (02:05→21:19)
[2017-04-17] MEDS: ALBUTEROL FS 2.5 MG/3 ML VIAL.NEB NEB SCH ×4 (02:20→19:45)
[2017-04-17] MEDS: IPRATROPIUM NEB FS 0.5 MG/2.5 ML AMPUL.NEB NEB SCH ×4 (02:20→19:45)
[2017-04-17] MEDS: BLOOD SUGAR DIAGNOSTIC 1 EACH STRIP IN SCH ×4 (06:10→21:12)
--- NOTE | 2017-04-17 06:23 | NUR ---
BINDER AND WRAPPER PACKER NOTES: BLOOD SUGAR THIS AM WAS 83. NO INSULIN IS TO BE ADMINISTERED. WILL CONTINUE TO MONITOR PT.
[2017-04-17] MEDS: INSULIN REGULAR, HUMAN 100 UNIT/ML 3 ML VIAL SQ PRN ×4 (06:40→21:14)
[2017-04-17 07:19] LABS: CALCIUM, SERUM 8.3 mg/dL (8.5-10.1); CARBON DIOXIDE 26 mmol/L (21-32); CHLORIDE 112 mmol/L (98-107); CREATININE 1.2 mg/dL (0.6-1.3); GLUCOSE 74 mg/dL (74-106); POTASSIUM 4.1 mmol/L (3.5-5.1); SODIUM SERUM 145 mmol/L (136-145); UREA NITROGEN, BLOOD 26 mg/dL (7-18)
--- NOTE | 2017-04-17 07:20 | NUR ---
RN NOTES PT IS IN BED, RESTING COMFORTABLY. PT ON 2L O2, RESPIRATIONS ARE EVEN AND UNLABORED. IV ON RFA INTACT AND PATENT, RUNNING NS @ 75ML/HR. SAFETY MEASURES ARE IN PLACE, CALL LIGHT IS IN REACH. WILL CONTINUE TO MONITOR.
--- NOTE | 2017-04-17 07:36 | NUR ---
HAND PLEATER CLOSING NOTES: ALL NEEDS WERE ATTENDED AND ANTICIPATED FOR. PT IS AWAKE WITH HOB ELEVATED. PT IS A/OX1 WITH PERIODS OF CONFUSION. PT IS ON 2LPM VIA NC AND IS TOLERATING WELL. PT IS ON DIAPER AND IS INCONTINENT. PT HAS R FOREARM 20G AND IS BEING INFUSED WITH NS AT 75ML/HR. CALL LIGHT WITHIN PT'S REACH. SITTER AT BEDSIDE. BED KEPT IN LOW, LOCKED POSITION, AND SIDE RAILS X 2 UP. BED ALARM ACTIVATED. ENDORSED TO AM NURSE FOR HAVEN. Addendum: 04/17/17 at 0738 by YAEL HERNANDEZ RN PT ON TELE BOX AND IT SHOWS SR [phone].
[2017-04-17 08:08] LABS: EOSINOPHILS # (AUTO) 0.1 /CMM (0.0-0.7); EOSINOPHILS % (AUTO) 0.6 % (0.0-6.0); HEMATOCRIT 29 % (33-45); HEMOGLOBIN 8.8 g/dL (11.5-14.8); LYMPHOCYTES # (AUTO) 1.3 /CMM (0.8-4.8); LYMPHOCYTES % (AUTO) 12.6 % (20.0-44.0); MEAN CORPUSCULAR HEMOGLOBIN 21 PG (26.0-33.0); MEAN CORPUSCULAR HGB CONC 30 g/dl (31.0-36.0); MEAN CORPUSCULAR VOLUME 70 fL (82-100); MONOCYTES # (AUTO) 0.7 /CMM (0.1-1.30); MONOCYTES % (AUTO) 6.9 % (2.0-12.0); NEUTROPHILS # (AUTO) 8.5 /CMM (1.8-8.9); NEUTROPHILS % (AUTO) 79.9 % (43.0-81.0); PLATELET COUNT (AUTO) 70 /CMM (150-450); RDW COEFFICIENT OF VARIATION 15.6 (11.5-15.0); RED BLOOD CELL COUNT(AUTO) 4.16 MIL/uL (4.0-5.2); WHITE BLOOD COUNT (AUTO) 10.7 K/uL (4.3-11.0)
[2017-04-17] MEDS: PANTOPRAZOLE 40 MG TABLET.DR PO SCH (08:30)
[2017-04-17 10:50] LABS: BAND % (MANUAL) 1 % (0.0-5.0); LYMPHOCYTES % (MANUAL) 4 % (16-48); MONOCYTES % (MANUAL) 5 % (0-11.0); NEUTROPHILS % (MANUAL) 90 (42-76)
[2017-04-17] MEDS ORDERED: NA PHOS,M-B/NA PHOS,DI-BA 1 EA ENEMA RC PRN (11:00)
[2017-04-17] MEDS ORDERED: PANTOPRAZOLE 40 MG TABLET.DR PO SCH (11:00)
[2017-04-17] MEDS ORDERED: ACETAMINOPHEN 325 MG TABLET PO PRN (11:00)
[2017-04-17] MEDS ORDERED: Medication Not On Formulary EA (Cranberry Extract (Cranberry) 850 MG) PO SCH (11:00)
[2017-04-17] MEDS ORDERED: BISACODYL SUPP (10 MG) 10 MG/SUPP.RECT SUPP.RECT RC PRN (11:00)
[2017-04-17] MEDS ORDERED: MISCELLANEOUS MED 1 EA EA PO PRN (11:00)
[2017-04-17] MEDS ORDERED: MAGNESIUM HYDROXIDE 30 ML UDC PO PRN (11:00)
[2017-04-17] MEDS ORDERED: CLONIDINE HCL 0.1 MG TABLET PO PRN (11:00)
[2017-04-17] MEDS ORDERED: INSULIN REGULAR, HUMAN 100 UNIT/ML 3 ML VIAL SQ PRN (11:00)
[2017-04-17] MEDS: OLANZAPINE 5 MG TABLET PO SCH ×2 (11:11→21:19)
[2017-04-17] MEDS: DOCUSATE SODIUM 100 MG CAPSULE PO SCH (11:11)
[2017-04-17] MEDS: DIVALPROEX SODIUM 250 MG TABLET.DR PO SCH ×2 (11:11→21:16)
[2017-04-17] MEDS: NIFEdipine XL (30MG) 30 MG TAB PO SCH (11:11)
[2017-04-17] MEDS: METHIMAZOLE (5MG) 5 MG TABLET PO SCH (11:11)
[2017-04-17] MEDS: CALCIUM CARB 250MG /VITAMIN D 1 UDTAB PO SCH (11:11)
[2017-04-17] MEDS: ASPIRIN 81 MG TAB.CHEW PO SCH (11:11)
[2017-04-17] MEDS: MULTIVIT, IRON, MIN NO. 8, FA 1 TAB PO SCH (11:11)
[2017-04-17] MEDS: LISINOPRIL (10MG) 10 MG TABLET PO SCH (11:12)
[2017-04-17] MEDS: IV NS 0.9% 1,000 ML IV PRN (11:24)
[2017-04-17] MEDS ORDERED: IPRATROPIUM NEB FS 0.5 MG/2.5 ML AMPUL.NEB IH SCH (11:30)
[2017-04-17] MEDS ORDERED: BLOOD SUGAR DIAGNOSTIC 1 EACH STRIP IN SCH (12:00)
[2017-04-17] MEDS ORDERED: ALBUTEROL HALF STRENGTH 1.25 MG/3 ML VIAL.NEB IH SCH (13:00)
[2017-04-17] MEDS: VANCOMYCIN 0.75 GM in IV D5W 250 ML IV SCH (14:26)
[2017-04-17] MEDS: LACTOBACILLUS RHAMNOSUS GG 1 EACH CAP.SPRINK PO SCH (16:46)
--- NOTE | 2017-04-17 18:49 | NUR ---
RN NOTES PT IS IN BED, RESTING COMFORTABLY WITH SITTER AT BEDSIDE. PT ON 2L O2, RESPIRATIONS ARE EVEN AND UNLABORED. IV ON RFA INTACT AND PATENT, RUNNING NS @ 75ML/HR. ALL MEDS WERE GIVEN ORDERED. PT KEPT CLEAN AND DRY, SKIN CARE PROVIDED. 1730 ACCUCHECK WAS 179, 3 UNITS GIVEN. SAFETY MEASURES ARE IN PLACE, CALL LIGHT IS IN REACH. WILL ENDORSE TO ROAD DESIGN DRAFTSPERSON RN FOR CONTINUITY OF CARE.
[2017-04-17] MEDS ORDERED: VANCOMYCIN 0.75 GM in IV D5W 250 ML IV SCH (19:00)
--- NOTE | 2017-04-17 19:30 | NUR ---
RN NOTES RECEIVED PATIENT IN BED AWAKE. AO X 1, ABLE TO MAKE NEEDS KNOWN. NO ACUTE DISTRESS NOTED. DENIES ANY PAIN AT THIS TIME. IV SITE PATENT, INTACT; IVF INFUSING ORDERED. SAFETY REMINDERS GIVEN. ON LOW BED WITH BILATERAL UPPER SIDE RAILS UP. CALL LIGHT WITHIN EASY REACH. WILL CONTINUE TO MONITOR. SITTER AT BEDSIDE.
[2017-04-17] MEDS: MONTELUKAST SODIUM (10MG) 10 MG TABLET PO SCH (21:12)
[2017-04-17] MEDS: GABAPENTIN 100 MG CAPSULE PO SCH (21:12)
[2017-04-17] MEDS: ENOXAPARIN SODIUM 30 MG/0.3 ML DISP.SYRIN SQ SCH (21:18)
[2017-04-17] MEDS: ACETAMINOPHEN 325 MG TABLET PO PRN (21:27)
[2017-04-18] MEDS: IPRATROPIUM NEB FS 0.5 MG/2.5 ML AMPUL.NEB NEB SCH ×4 (01:18→19:39)
[2017-04-18] MEDS: ALBUTEROL FS 2.5 MG/3 ML VIAL.NEB NEB SCH ×4 (01:18→19:39)
[2017-04-18] MEDS: VANCOMYCIN 0.75 GM in IV D5W 250 ML IV SCH ×3 (02:24→18:00)
[2017-04-18] MEDS: ZOSYN IVPB 2.25 G in IV D5W 50ml IV SCH ×4 (03:25→21:23)
[2017-04-18] MEDS: IV NS 0.9% 1,000 ML IV PRN ×2 (05:16→22:40)
--- NOTE | 2017-04-18 06:13 | NUR ---
RN NOTES PATIENT ASLEEP, EASILY AROUSABLE. RESPIRATIONS EVEN. NO SIGNS OF PAIN NOTED. DUE MEDS GIVEN WITH NO ASE NOTED. NEEDS ATTENDED. SAFETY PRECAUTIONS AND COMFORT MEASURES IN PLACE. WILL GIVE REPORT TO DAY SHIFT FOR CONTINUITY OF CARE. Addendum: 04/18/17 at 0616 by KATHERINE PARK RN REPOSITIONED Q 2 HOURS
[2017-04-18] MEDS: BLOOD SUGAR DIAGNOSTIC 1 EACH STRIP IN SCH ×4 (06:53→21:21)
[2017-04-18] MEDS: INSULIN REGULAR, HUMAN 100 UNIT/ML 3 ML VIAL SQ PRN ×3 (06:56→21:29)
--- NOTE | 2017-04-18 07:40 | NUR ---
RN OPENING NOTES 1:1 SITTER AT BEDSIDE. RECEIVED PT. IN BED A&OX1, CONFUSED. BREATHING UNLABORED, AND EVENLY ON OXYGEN AT 2L/MIN VIA NASAL CANNULA. NO S/S OF ACUTE DISTRESS. IV FLUIDS RUNNING. BED IS IN LOWEST, LOCKED POSITION, 2 SIDE RAILS UP, AND CALL LIGHT WITHIN REACH. WILL CONTINUE TO ASSESS AND MONITOR.
[2017-04-18 08:00] VITALS: BP 122/60
[2017-04-18 08:32] LABS: BASOPHILS % (AUTO) 0.1 % (0.0-2.0); EOSINOPHILS # (AUTO) 0.1 /CMM (0.0-0.7); EOSINOPHILS % (AUTO) 0.9 % (0.0-6.0); HEMATOCRIT 25 % (33-45); HEMOGLOBIN 7.9 g/dL (11.5-14.8); LYMPHOCYTES # (AUTO) 1.1 /CMM (0.8-4.8); LYMPHOCYTES % (AUTO) 16.7 % (20.0-44.0); MEAN CORPUSCULAR HEMOGLOBIN 21 PG (26.0-33.0); MEAN CORPUSCULAR HGB CONC 31 g/dl (31.0-36.0); MEAN CORPUSCULAR VOLUME 68 fL (82-100); MONOCYTES # (AUTO) 0.6 /CMM (0.1-1.30); MONOCYTES % (AUTO) 9.2 % (2.0-12.0); NEUTROPHILS % (AUTO) 73.1 % (43.0-81.0); PLATELET COUNT (AUTO) 115 /CMM (150-450); RDW COEFFICIENT OF VARIATION 16.1 (11.5-15.0); RED BLOOD CELL COUNT(AUTO) 3.75 MIL/uL (4.0-5.2); WHITE BLOOD COUNT (AUTO) 6.8 K/uL (4.3-11.0)
[2017-04-18 08:51] LABS: CALCIUM, SERUM 7.9 mg/dL (8.5-10.1); CARBON DIOXIDE 27 mmol/L (21-32); CHLORIDE 110 mmol/L (98-107); CREATININE 1.5 mg/dL (0.6-1.3); GLUCOSE 129 mg/dL (74-106); MAGNESIUM 1.6 mg/dL (1.8-2.4); POTASSIUM 4.1 mmol/L (3.5-5.1); SODIUM SERUM 143 mmol/L (136-145); UREA NITROGEN, BLOOD 22 mg/dL (7-18)
[2017-04-18] MEDS: LACTOBACILLUS RHAMNOSUS GG 1 EACH CAP.SPRINK PO SCH ×2 (09:34→16:55)
[2017-04-18] MEDS: OLANZAPINE 5 MG TABLET PO SCH ×2 (09:34→21:21)
[2017-04-18] MEDS: PANTOPRAZOLE 40 MG TABLET.DR PO SCH (09:34)
[2017-04-18] MEDS: DIVALPROEX SODIUM 250 MG TABLET.DR PO SCH ×2 (09:34→21:21)
[2017-04-18] MEDS: MULTIVIT, IRON, MIN NO. 8, FA 1 TAB PO SCH (09:35)
[2017-04-18] MEDS: NIFEdipine XL (30MG) 30 MG TAB PO SCH (09:35)
[2017-04-18] MEDS: DOCUSATE SODIUM 100 MG CAPSULE PO SCH (09:35)
[2017-04-18] MEDS: LISINOPRIL (10MG) 10 MG TABLET PO SCH (09:35)
[2017-04-18] MEDS: CALCIUM CARB 250MG /VITAMIN D 1 UDTAB PO SCH (09:35)
[2017-04-18] MEDS: ASPIRIN 81 MG TAB.CHEW PO SCH (09:49)
[2017-04-18 11:07] LABS: BAND % (MANUAL) 1 % (0.0-5.0); LYMPHOCYTES % (MANUAL) 7 % (16-48); MONOCYTES % (MANUAL) 4 % (0-11.0); NEUTROPHILS % (MANUAL) 88 (42-76)
[2017-04-18] MEDS: METHIMAZOLE (5MG) 5 MG TABLET PO SCH (11:30)
[2017-04-18] MEDS: Magnesium 1GM/D5W 100ML PREMIX 100 ML IV SCH ×2 (12:23→14:00)
--- NOTE | 2017-04-18 15:07 | NUR ---
RN NOTES PT. HAS A VANCOMYCIN IV DUE. NOTIFIED LAB THAT PT. HAS NO VANCOMYCIN TROUGH LEVELS. PER LAB PT. IS A HARD STICK AND THAT THEY WILL TRY TO DRAW BLOOD AGAIN FOR VANCOMYCIN TROUGH.
--- NOTE | 2017-04-18 15:33 | NUR ---
RN NOTES LAB TRIED TO DRAW BLOOD THREE TIMES AND WAS UNABLE TO RECEIVE BLOOD FOR VANCOMYCIN TROUGH. NOTIFIED PHARMACY. PER PHARMACY OKAY TO GIVE THE 1400 DOSE, AND LAB WILL TRY AGAIN TOMORROW MORNING.
[2017-04-18 16:00] VITALS: BP 119/69
[2017-04-18] MEDS: ACETAMINOPHEN 325 MG TABLET PO PRN ×2 (16:56→21:30)
--- NOTE | 2017-04-18 18:00 | NUR ---
RN NOTES IV VANCOMYCIN WAS NON ADMINISTERED AT 1800. MEDICATION WAS ALREADY GIVEN AT 1630.
--- NOTE | 2017-04-18 18:45 | NUR ---
RN CLOSING NOTES 1:1 SITTER AT BEDSIDE. PT. IN BED A&OX1-2, CONFUSED. BREATHING UNLABORED, AND EVENLY ON OXYGEN AT 2L/MIN VIA NASAL CANNULA. NO SOB, AND PT. DENIES PAIN. NO S/S OF ACUTE DISTRESS. IV FLUIDS RUNNING AT 75 ML/HR. BED IS IN LOW LOCKED POSITION, 2 SIDE RAILS UP, AND INSTRUCTED PT. TO USE CALL LIGHT FOR ASSISTANCE. WILL ENDORSE REPORT TO NURSE.
--- NOTE | 2017-04-18 19:30 | NUR ---
RN NOTES RECEIVED PATIENT IN BED AWAKE. AO X 1, ABLE TO MAKE NEEDS KNOWN. NO ACUTE DISTRESS NOTED. DENIES ANY PAIN AT THIS TIME. IV SITE PATENT, INTACT; IVF INFUSING ORDERED. NO SYMPTOMS OF HYPER/HYPOGLYCEMIA. SAFETY REMINDERS GIVEN. ON LOW BED WITH BILATERAL UPPER SIDE RAILS UP. CALL LIGHT WITHIN EASY REACH. WILL CONTINUE TO MONITOR. SITTER AT BEDSIDE.
[2017-04-18 20:00] VITALS: BP 130/54
[2017-04-18] MEDS: GABAPENTIN 100 MG CAPSULE PO SCH (21:21)
[2017-04-18] MEDS: MONTELUKAST SODIUM (10MG) 10 MG TABLET PO SCH (21:22)
[2017-04-18] MEDS: ENOXAPARIN SODIUM 30 MG/0.3 ML DISP.SYRIN SQ SCH (21:24)
[2017-04-19] MEDS: IPRATROPIUM NEB FS 0.5 MG/2.5 ML AMPUL.NEB NEB SCH ×3 (01:22→13:26)
[2017-04-19] MEDS: ALBUTEROL FS 2.5 MG/3 ML VIAL.NEB NEB SCH ×3 (01:22→13:26)
[2017-04-19] MEDS: ZOSYN IVPB 2.25 G in IV D5W 50ml IV SCH ×3 (02:28→15:12)
[2017-04-19] MEDS: BLOOD SUGAR DIAGNOSTIC 1 EACH STRIP IN SCH ×2 (06:37→11:47)
--- NOTE | 2017-04-19 06:39 | NUR ---
RN NOTES PATIENT AWAKE. RESPIRATIONS EVEN. NO SIGNS OF PAIN NOTED. DUE MEDS GIVEN WITH NO ASE NOTED. NEEDS ATTENDED. REPOSITIONED Q 2 HOURS. SAFETY PRECAUTIONS AND COMFORT MEASURES IN PLACE. WILL GIVE REPORT TO DAY SHIFT FOR CONTINUITY OF CARE.
[2017-04-19 06:47] LABS: CALCIUM, SERUM 8.3 mg/dL (8.5-10.1); CARBON DIOXIDE 25 mmol/L (21-32); CHLORIDE 112 mmol/L (98-107); CREATININE 1.3 mg/dL (0.6-1.3); GLUCOSE 97 mg/dL (74-106); POTASSIUM 4.3 mmol/L (3.5-5.1); SODIUM SERUM 148 mmol/L (136-145); UREA NITROGEN, BLOOD 17 mg/dL (7-18)
[2017-04-19] MEDS: VANCOMYCIN 0.75 GM in IV D5W 250 ML IV SCH (06:58)
--- NOTE | 2017-04-19 07:53 | NUR ---
MS/RN OPENING NOTE PATIENT RECEIVED IN BED IN STABLE CONDITION. A/O X 1-2 WITH EPISODES OF CONFUSION AND FORGETFULNESS. NO SIGNS OF ACUTE DISTRESS. NO COMPLAIN OF PAIN OR DISCOMFORT. ALL NEEDS ATTENDED TO. CALL LIGHT WITHIN REACH. SITTER AT BEDSIDE. WILL CONTINUE TO MONITOR TO ENSURE SAFETY.
[2017-04-19 08:00] VITALS: BP 161/54
[2017-04-19] MEDS: DIVALPROEX SODIUM 250 MG TABLET.DR PO SCH (08:25)
[2017-04-19] MEDS: LACTOBACILLUS RHAMNOSUS GG 1 EACH CAP.SPRINK PO SCH (08:25)
[2017-04-19] MEDS: ASPIRIN 81 MG TAB.CHEW PO SCH (08:26)
[2017-04-19] MEDS: MULTIVIT, IRON, MIN NO. 8, FA 1 TAB PO SCH (08:26)
[2017-04-19] MEDS: CALCIUM CARB 250MG /VITAMIN D 1 UDTAB PO SCH (08:26)
[2017-04-19] MEDS: NIFEdipine XL (30MG) 30 MG TAB PO SCH (08:26)
[2017-04-19] MEDS: DOCUSATE SODIUM 100 MG CAPSULE PO SCH (08:26)
[2017-04-19] MEDS: OLANZAPINE 5 MG TABLET PO SCH (08:26)
[2017-04-19] MEDS: PANTOPRAZOLE 40 MG TABLET.DR PO SCH (08:26)
[2017-04-19] MEDS: LISINOPRIL (10MG) 10 MG TABLET PO SCH (08:27)
[2017-04-19 08:56] LABS: BASOPHILS % (AUTO) 0.2 % (0.0-2.0); EOSINOPHILS # (AUTO) 0.1 /CMM (0.0-0.7); EOSINOPHILS % (AUTO) 1.9 % (0.0-6.0); HEMATOCRIT 28 % (33-45); HEMOGLOBIN 8.5 g/dL (11.5-14.8); LYMPHOCYTES # (AUTO) 1.1 /CMM (0.8-4.8); MEAN CORPUSCULAR HEMOGLOBIN 21 PG (26.0-33.0); MEAN CORPUSCULAR HGB CONC 30 g/dl (31.0-36.0); MEAN CORPUSCULAR VOLUME 68 fL (82-100); MONOCYTES # (AUTO) 0.5 /CMM (0.1-1.30); MONOCYTES % (AUTO) 7.1 % (2.0-12.0); NEUTROPHILS # (AUTO) 5.4 /CMM (1.8-8.9); NEUTROPHILS % (AUTO) 75.8 % (43.0-81.0); PLATELET COUNT (AUTO) 131 /CMM (150-450); RDW COEFFICIENT OF VARIATION 15.6 (11.5-15.0); RED BLOOD CELL COUNT(AUTO) 4.13 MIL/uL (4.0-5.2); WHITE BLOOD COUNT (AUTO) 7.1 K/uL (4.3-11.0)
[2017-04-19 10:29] LABS: BAND % (MANUAL) 1 % (0.0-5.0); LYMPHOCYTES % (MANUAL) 8 % (16-48); MONOCYTES % (MANUAL) 8 % (0-11.0); NEUTROPHILS % (MANUAL) 83 (42-76)
[2017-04-19] MEDS ORDERED: FLU VACC QS 2017-18(36MOS+)/PF 0.5 ML DISP.SYRIN IM ONE (11:00)
[2017-04-19] MEDS: METHIMAZOLE (5MG) 5 MG TABLET PO SCH (11:47)
[2017-04-19] MEDS ORDERED: BUMETANIDE INJ 0.25 MG/ML VIAL IV ONE (12:00)
[2017-04-19] MEDS: INSULIN REGULAR, HUMAN 100 UNIT/ML 3 ML VIAL SQ PRN (12:18)
--- NOTE | 2017-04-19 13:27 | NUR ---
MS/RN SEEN BY DR BRIGGS SEEN BY DR GARCIA WITH ORDERS TO DISCHARGE TODAY.
[2017-04-19 16:00] VITALS: BP 147/66
--- NOTE | 2017-04-19 16:18 | NUR ---
MS/BIOTECHNICIAN PATIENT DISCHARGE TO [facility] IN STABLE CONDITION. A/O X 1. NO SIGNS OF ACUTE DISTRESS. NO COMPLAIN OF PAIN OR DISCOMFORT. DISCHARGE INSTRUCTION PROVIDED, UNABLE TO COMPREHEND. REPORT GIVEN TO NANCI BARRAZA FROM [facility]. ALL NEEDS ATTENDED TO. NAME BAND AND IV LINE REMOVED. LEFT VIA AMBULANCE IN STABLE CONDITION ACCOMPANIED BY 2 HYDROPULPER.
[2017-04-21] MEDS ORDERED: CLONIDINE HCL 0.3 MG/24H PTWK 1 EA PATCH TD SCH (09:00)
[2017-04-21] MEDS ORDERED: METHIMAZOLE (5MG) 5 MG TABLET PO SCH (11:00)
== END 2017-04-19 16:20 | DRG 871 ==
LOC: ER 16:55 → TELE 19:49 → MED 04-17 08:47
PROVIDERS: ADMIT Legal Medicine; ATTEND Legal Medicine
DX: A41.9 Sepsis, unspecified organism (principal); G93.41 Metabolic encephalopathy; J18.9 Pneumonia, unspecified organism; I11.0 Hypertensive heart disease with heart failure; E11.9 Type 2 diabetes mellitus without complications; F03.90 Unspecified dementia, unspecified severity, without behavioral disturbance, psychotic disturbance, mood disturbance, and anxiety; I50.9 Heart failure, unspecified; E03.9 Hypothyroidism, unspecified; E78.5 Hyperlipidemia, unspecified; I25.10 Atherosclerotic heart disease of native coronary artery without angina pectoris; Z79.4 Long term (current) use of insulin; Z79.82 Long term (current) use of aspirin; Z79.899 Other long term (current) drug therapy; Z87.01 Personal history of pneumonia (recurrent); K59.00 Constipation, unspecified
CPT/HCPCS: 36415; 71010-TC; 80048-TC; 80076-TC; 80202-TC; 82962-TC; 83605-TC; 83735-TC; 84484-TC; 85025-TC; 85730-TC; 87040-TC; 87081-TC; 94799-TC; A4606; J0696; J1650; J1815; J1956; J2543; J3370; J3475; J3490; J7030; J7060; Q2036; Z7610

== ENCOUNTER 2017-09-08 10:31 | Inpatient (IN) | payer MEDICARE, MEDICAID ==
[~2017-09-08] VITALS: Ht 165.1 cm; Wt 78.5 kg
[2017-09-08] VITALS (8 sets, daily range): BP systolic 83–173; BP diastolic 39–97
[~2017-09-08 10:31] MED LIST changes: +ALBU1.257 IH; -AMIN30LI4 PO; +ASPI-1169 PO; -ASPI81TA2 PO; +BISA10SU8 RC; -CARV6.25 PO; -CLON0.5T4 PO; +CRAN425C6 PO; +DOCU-141 PO; -DOCU-25 PO; -FLUT1DIS3 INH; -INSU100V10 SQ; +IPRA0.2S9 IH; -IPRA3AMP INH; -IRON1CAP4 PO; -MAG30ORA PO; +NA P133E RC; +NIFE90TA37 PO; -NITR1OIN2 TD
[2017-09-08 11:08] LABS: BASOPHILS % (AUTO) 0.4 % (0.0-2.0); EOSINOPHILS # (AUTO) 0.2 /CMM (0.0-0.7); HEMATOCRIT 34 % (33-45); HEMOGLOBIN 10.1 g/dL (11.5-14.8); LYMPHOCYTES # (AUTO) 0.8 /CMM (0.8-4.8); LYMPHOCYTES % (AUTO) 9.2 % (20.0-44.0); MEAN CORPUSCULAR HEMOGLOBIN 20 PG (26.0-33.0); MEAN CORPUSCULAR HGB CONC 30 g/dl (31.0-36.0); MEAN CORPUSCULAR VOLUME 68 fL (82-100); MONOCYTES # (AUTO) 0.3 /CMM (0.1-1.30); MONOCYTES % (AUTO) 3.3 % (2.0-12.0); NEUTROPHILS # (AUTO) 7.5 /CMM (1.8-8.9); NEUTROPHILS % (AUTO) 85.1 % (43.0-81.0); PLATELET COUNT (AUTO) 188 /CMM (150-450); RDW COEFFICIENT OF VARIATION 17.2 (11.5-15.0); RED BLOOD CELL COUNT(AUTO) 5.03 MIL/uL (4.0-5.2); WHITE BLOOD COUNT (AUTO) 8.8 K/uL (4.3-11.0)
[2017-09-08 11:20] LABS: CALCIUM, SERUM 8.8 mg/dL (8.5-10.1); CARBON DIOXIDE 33 mmol/L (21-32); CHLORIDE 105 mmol/L (98-107); GLUCOSE 84 mg/dL (74-106); POTASSIUM 5.5 mmol/L (3.5-5.1); SODIUM SERUM 138 mmol/L (136-145); UREA NITROGEN, BLOOD 31 mg/dL (7-18)
[2017-09-08 11:26] LABS: ALANINE AMINOTRANSFERASE 7 U/L (12-78); ALBUMIN 2.2 g/dL (3.4-5.0); ALKALINE PHOSPHATASE 57 U/L (46-116); ASPARTATE AMINOTRANSFERASE 18 U/L (15-37); BILIRUBIN,DIRECT 0.1 mg/dL (0.0-0.2); BILIRUBIN,TOTAL 0.3 mg/dL (0.2-1.0); INR 0.95 (0.85-1.15); TOTAL PROTEIN, SERUM 7.1 g/dL (6.4-8.2)
[2017-09-08 11:28] LABS: TROPONIN I < 0.017 ng/mL (0.00-0.056)
[2017-09-08] MEDS ORDERED: FERR325T23 PO (12:09)
[2017-09-08] MEDS ORDERED: EPOE200012 SQ (12:09)
[2017-09-08] MEDS ORDERED: SACC250C PO (12:09)
[2017-09-08] MEDS ORDERED: GABA-532 PO (12:09)
[2017-09-08] MEDS ORDERED: AMIN30LI2 PO (12:09)
[2017-09-08] MEDS ORDERED: PIPERACILLIN /TAZOBACTAM 3.375 G in IV D5W 50 ML IV ONE (12:30)
[2017-09-08] MEDS ORDERED: VANCOMYCIN 1 GM in IV D5W 250 ML IV ONE (12:30)
[2017-09-08 12:44] LABS: APPEARANCE,URINE Clear (CLEAR); BILIRUBIN,URINE Negative (NEGATIVE); BLOOD, URINE Negative Ery/uL (NEGATIVE); COLOR,URINE Yellow (YELLOW); KETONES,URINE Trace (NEGATIVE); LEUKOCYTE ESTERASE ,URINE Negative (NEGATIVE); NITRITE, URINE Negative (NEGATIVE); PH,URINE 5.5 (5.0-8.0); PROTEIN,URINE Trace mg/dl (NEGATIVE); UGLUCOSE Negative (NEGATIVE); UROBILINOGEN,URINE 0.2 EU/dL (0.2)
[2017-09-08 13:35] LABS: BACTERIA,URINE Many /HPF (None Seen); RBC,URINE NONE SEEN /HPF (0-2); SQUAMOUS EPITHELIAL CELL,UR Few /HPF (None Seen)
[2017-09-08] MEDS ORDERED: METHIMAZOLE (5MG) 5 MG TABLET PO SCH (14:30)
[2017-09-08] MEDS ORDERED: BISACODYL SUPP (10 MG) 10 MG/SUPP.RECT SUPP.RECT RC PRN (14:30)
[2017-09-08] MEDS ORDERED: DEXTROSE 50%-WATER 50 ML DISP.SYRIN IV PRN (14:30)
[2017-09-08] MEDS ORDERED: VANCOMYCIN 1 GM in IV NS 0.9% 250 ML IV SCH (14:30)
[2017-09-08] MEDS ORDERED: CLONIDINE HCL 0.3 MG/24H PTWK 1 EA PATCH TD SCH (14:30)
[2017-09-08] MEDS ORDERED: FEE PK DOSING 1 MIN EA MC ONE (15:02)
[2017-09-08] MEDS: IPRATROPIUM NEB FS 0.5 MG/2.5 ML AMPUL.NEB IH SCH ×3 (15:30→23:30)
[2017-09-08] MEDS: BLOOD SUGAR DIAGNOSTIC 1 EACH STRIP VI SCH ×3 (15:33→21:31)
[2017-09-08] MEDS: INSULIN REGULAR, HUMAN 100 UNIT/ML 3 ML VIAL SQ PRN ×2 (15:37→17:32)
[2017-09-08] MEDS: PROSOURCE / PROSTAT (PYXIS) 30 ML UDC PO SCH (15:39)
[2017-09-08] MEDS: ALBUTEROL HALF STRENGTH 1.25 MG/3 ML VIAL.NEB IH SCH ×3 (17:00→23:30)
[2017-09-08] MEDS: methylPREDNISolone SOD SUCC 125 MG/2ML VIAL IV SCH (17:33)
[2017-09-08] MEDS: PIPERACILLIN /TAZOBACTAM 3.375 G in IV D5W 50 ML IV SCH (17:34)
[2017-09-08] MEDS: MONTELUKAST SODIUM (10MG) 10 MG TABLET PO SCH (21:30)
[2017-09-08] MEDS: *INSULIN REGULAR(HUMULIN R)HUM 100 UNIT/ML VIAL SQ PRN (21:30)
[2017-09-08] MEDS: DIVALPROEX SODIUM 250 MG TABLET.DR PO SCH (21:31)
[2017-09-08] MEDS: OLANZAPINE 5 MG TABLET PO SCH (21:31)
[2017-09-08] MEDS: GABAPENTIN 100 MG CAPSULE PO SCH (21:31)
[2017-09-08] MEDS ORDERED: ACETAMINOPHEN 650 MG/SUPP.RECT RC PRN (23:30)
[2017-09-08] MEDS ORDERED: IV NS 0.9% 1,000 ML BAG IV PRN (23:30)
[2017-09-08] MEDS ORDERED: NOREPINEPHRINE 8 MG in IV D5W 500 ML IV PRN (23:30)
[2017-09-08] MEDS ORDERED: ONDANSETRON HCL/PF 4 MG/2 ML VIAL IVP PRN (23:30)
[2017-09-08] MEDS ORDERED: PROPOFOL 10MG/ML 50ML 50 ML IV PRN (23:30)
[2017-09-08] MEDS: PANTOPRAZOLE 40 MG VIAL IV SCH (23:57)
[2017-09-08 23:58] LABS: ABG BASE EXCESS 2.2 mmol/L; ABG OXYGEN SATURATION 99.6 % (92.0-98.5); ABG PCO2 49.1 mmHg (35.0-45.0); ABG PH 7.373 (7.350-7.450); ABG PO2 452.1 mmHg (75.0-100.0); AaDO2 211.8 mmHg; COHb 0.7 % (0.5-1.5); MetHb 0.6 % (0.0-1.5); O2Hb 98.3 % (94.0-97.0); PEEP,BG 5 cm H2O; SITE, ABG Right Radial; VT, ABG 370 mL
[2017-09-09] VITALS (59 sets, daily range): BP systolic 87–186; BP diastolic 27–105
[2017-09-09] MEDS ORDERED: MIDAZOLAM HCL 2 MG/2ML VIAL IV ONE
[2017-09-09 00:03] LABS: BASOPHILS % (AUTO) 0.4 % (0.0-2.0); EOSINOPHILS % (AUTO) 0.1 % (0.0-6.0); HEMATOCRIT 32 % (33-45); HEMOGLOBIN 9.2 g/dL (11.5-14.8); LYMPHOCYTES # (AUTO) 0.7 /CMM (0.8-4.8); LYMPHOCYTES % (AUTO) 7.8 % (20.0-44.0); MEAN CORPUSCULAR HEMOGLOBIN 20 PG (26.0-33.0); MEAN CORPUSCULAR HGB CONC 29 g/dl (31.0-36.0); MEAN CORPUSCULAR VOLUME 69 fL (82-100); MONOCYTES # (AUTO) 0.2 /CMM (0.1-1.30); MONOCYTES % (AUTO) 1.7 % (2.0-12.0); NEUTROPHILS # (AUTO) 8.1 /CMM (1.8-8.9); PLATELET COUNT (AUTO) 272 /CMM (150-450); RDW COEFFICIENT OF VARIATION 18.4 (11.5-15.0); RED BLOOD CELL COUNT(AUTO) 4.67 MIL/uL (4.0-5.2); WHITE BLOOD COUNT (AUTO) 9.1 K/uL (4.3-11.0)
[2017-09-09] MEDS: PIPERACILLIN /TAZOBACTAM 3.375 G in IV D5W 50 ML IV SCH ×5 (00:04→23:25)
[2017-09-09 00:21] LABS: CALCIUM, SERUM 7.9 mg/dL (8.5-10.1); CARBON DIOXIDE 32 mmol/L (21-32); CHLORIDE 102 mmol/L (98-107); CREATINE KINASE, TOTAL 75 U/L (26-192); CREATININE 1.3 mg/dL (0.6-1.3); GLUCOSE 252 mg/dL (74-106); MAGNESIUM 1.9 mg/dL (1.8-2.4); PHOSPHORUS 6.2 mg/dL (2.5-4.9); POTASSIUM 5.7 mmol/L (3.5-5.1); SODIUM SERUM 140 mmol/L (136-145); UREA NITROGEN, BLOOD 29 mg/dL (7-18)
[2017-09-09 00:34] LABS: ALANINE AMINOTRANSFERASE 70 U/L (12-78); ALKALINE PHOSPHATASE 56 U/L (46-116); ASPARTATE AMINOTRANSFERASE 113 U/L (15-37); BILIRUBIN,TOTAL 0.3 mg/dL (0.2-1.0); TOTAL PROTEIN, SERUM 6.3 g/dL (6.4-8.2)
[2017-09-09] MEDS: VANCOMYCIN 0.75 GM in IV NS 0.9% 250 ML IV SCH ×2 (00:37→11:05)
[2017-09-09] MEDS ORDERED: NOREPINEPHRINE 4 MG/4 ML AMPUL IV ONE (01:07)
[2017-09-09] MEDS: PROPOFOL 100 ML IV PRN ×2 (01:26→11:37)
[2017-09-09] MEDS ORDERED: ASPIRIN 81 MG TAB.CHEW NG SCH (01:30)
[2017-09-09] MEDS ORDERED: SODIUM POLYSTYRENE SULFONATE 15 G/60 ML BOTTLE NG ONE (01:30)
[2017-09-09] MEDS: PANTOPRAZOLE 40 MG VIAL IV SCH ×2 (01:30→08:19)
[2017-09-09] MEDS ORDERED: Calcium Gluconate 1GM/10ML 4.65 MEQ in IV NS 0.9% 50 ML IV ONE (01:30)
[2017-09-09] MEDS ORDERED: INSULIN REGULAR, HUMAN 100 UNIT/ML 3 ML VIAL IV ONE (01:30)
[2017-09-09] MEDS ORDERED: LEVETIRACETAM (500MG) 500 MG/5 ML VIAL IV ONE (02:52)
[2017-09-09] MEDS ORDERED: Calcium Gluconate 0.465 MEQ/ML VIAL IV ONE (02:54)
[2017-09-09] MEDS: ALBUTEROL HALF STRENGTH 1.25 MG/3 ML VIAL.NEB IH SCH ×6 (03:18→22:59)
[2017-09-09] MEDS: IPRATROPIUM NEB FS 0.5 MG/2.5 ML AMPUL.NEB IH SCH ×6 (03:18→22:59)
[2017-09-09] MEDS: LEVETIRACETAM (500MG) 500 MG in IV NS 0.9% 100 ML IV SCH ×2 (03:18→12:48)
[2017-09-09] MEDS ORDERED: IV NS 0.9% 1,000 ML IV PRN (03:30)
[2017-09-09 05:00] LABS: CALCIUM, SERUM 7.7 mg/dL (8.5-10.1); CARBON DIOXIDE 32 mmol/L (21-32); CHLORIDE 102 mmol/L (98-107); CREATININE 1.2 mg/dL (0.6-1.3); GLUCOSE 209 mg/dL (74-106); MAGNESIUM 1.7 mg/dL (1.8-2.4); PHOSPHORUS 4.2 mg/dL (2.5-4.9); POTASSIUM 5.1 mmol/L (3.5-5.1); SODIUM SERUM 139 mmol/L (136-145); UREA NITROGEN, BLOOD 29 mg/dL (7-18)
[2017-09-09 05:09] LABS: IRON, SERUM 16 ug/dl (50-175); TOTAL IRON BINDING CAPACITY 131 ug/dl (250-450)
[2017-09-09] MEDS: INSULIN REGULAR, HUMAN 100 UNIT/ML 3 ML VIAL SQ PRN (05:13)
[2017-09-09] MEDS: LISINOPRIL (10MG) 10 MG TABLET PO SCH (08:19)
[2017-09-09] MEDS: FERROUS SULFATE (325 MG) 325 MG/TAB TABLET PO SCH (08:19)
[2017-09-09] MEDS: OLANZAPINE 5 MG TABLET PO SCH ×2 (08:19→21:30)
[2017-09-09] MEDS: DOCUSATE SODIUM 100 MG CAPSULE PO SCH (08:19)
[2017-09-09] MEDS: DIVALPROEX SODIUM 250 MG TABLET.DR PO SCH ×2 (08:19→21:30)
[2017-09-09] MEDS: GABAPENTIN 100 MG CAPSULE PO SCH ×2 (08:19→21:30)
[2017-09-09] MEDS: ASPIRIN 81 MG TAB.CHEW PO SCH (08:19)
[2017-09-09] MEDS: methylPREDNISolone SOD SUCC 125 MG/2ML VIAL IV SCH ×3 (08:19→16:56)
[2017-09-09] MEDS: BLOOD SUGAR DIAGNOSTIC 1 EACH STRIP VI SCH ×4 (08:21→21:36)
[2017-09-09] MEDS: PROSOURCE / PROSTAT (PYXIS) 30 ML UDC PO SCH (08:21)
[2017-09-09] MEDS: IV NS 0.9% 1,000 ML IV PRN ×2 (08:45→17:15)
[2017-09-09] MEDS: Magnesium 1GM/D5W 100ML PREMIX 100 ML IV SCH ×2 (08:45→09:47)
[2017-09-09 08:46] LABS: TROPONIN I 0.029 ng/mL (0.00-0.056)
[2017-09-09 08:51] LABS: THYROID STIMULATING HORMONE 1.816 uIU/mL (0.358-3.74)
[2017-09-09 08:53] LABS: ABG BASE EXCESS 2.2 mmol/L; ABG OXYGEN SATURATION 94.4 % (92.0-98.5); ABG PCO2 58.9 mmHg (35.0-45.0); ABG PH 7.315 (7.350-7.450); ABG PO2 76.1 mmHg (75.0-100.0); AaDO2 141.4 mmHg; MetHb 0.5 % (0.0-1.5); PEEP,BG 5 cm H2O; SITE, ABG Right Radial; VT, ABG 370 mL
[2017-09-09] MEDS: CLONIDINE HCL 0.1 MG TABLET PO PRN ×2 (11:05→23:22)
[2017-09-09] MEDS ORDERED: EPINEPHRINE (1:10,000) SYRINGE 1 MG/10 ML DISP.SYRIN IVP ONE (11:30)
[2017-09-09] MEDS ORDERED: FEE EMEERGENCY 1 MIN EA MC ONE (11:30)
[2017-09-09] MEDS: METHIMAZOLE (5MG) 5 MG TABLET PO SCH (14:58)
[2017-09-09] MEDS: MONTELUKAST SODIUM (10MG) 10 MG TABLET PO SCH (21:30)
[2017-09-10] VITALS (73 sets, daily range): BP systolic 84–190; BP diastolic 39–122
[2017-09-10] MEDS: VANCOMYCIN 0.75 GM in IV NS 0.9% 250 ML IV SCH (00:53)
[2017-09-10] MEDS: LEVETIRACETAM (500MG) 500 MG in IV NS 0.9% 100 ML IV SCH (00:58)
[2017-09-10] MEDS: PANTOPRAZOLE 40 MG VIAL IV SCH ×2 (01:01→08:36)
[2017-09-10] MEDS ORDERED: hydrALAZINE HCL IV 20 MG VIAL IV ONE (02:30)
[2017-09-10] MEDS: ALBUTEROL HALF STRENGTH 1.25 MG/3 ML VIAL.NEB IH SCH ×7 (03:17→23:31)
[2017-09-10] MEDS: IPRATROPIUM NEB FS 0.5 MG/2.5 ML AMPUL.NEB IH SCH ×7 (03:17→23:31)
[2017-09-10 04:31] LABS: HEMATOCRIT 31 % (33-45); HEMOGLOBIN 9.6 g/dL (11.5-14.8); LYMPHOCYTES # (AUTO) 0.9 /CMM (0.8-4.8); LYMPHOCYTES % (AUTO) 11.7 % (20.0-44.0); MEAN CORPUSCULAR HEMOGLOBIN 21 PG (26.0-33.0); MEAN CORPUSCULAR HGB CONC 31 g/dl (31.0-36.0); MEAN CORPUSCULAR VOLUME 67 fL (82-100); MONOCYTES # (AUTO) 0.5 /CMM (0.1-1.30); MONOCYTES % (AUTO) 6.6 % (2.0-12.0); NEUTROPHILS # (AUTO) 6.2 /CMM (1.8-8.9); NEUTROPHILS % (AUTO) 81.7 % (43.0-81.0); PLATELET COUNT (AUTO) 200 /CMM (150-450); RDW COEFFICIENT OF VARIATION 18.7 (11.5-15.0); RED BLOOD CELL COUNT(AUTO) 4.66 MIL/uL (4.0-5.2); WHITE BLOOD COUNT (AUTO) 7.6 K/uL (4.3-11.0)
[2017-09-10 04:54] LABS: TROPONIN I < 0.017 ng/mL (0.00-0.056)
[2017-09-10 04:59] LABS: ALANINE AMINOTRANSFERASE 47 U/L (12-78); ALBUMIN 2.1 g/dL (3.4-5.0); ALKALINE PHOSPHATASE 52 U/L (46-116); ASPARTATE AMINOTRANSFERASE 36 U/L (15-37); BILIRUBIN,TOTAL 0.3 mg/dL (0.2-1.0); CALCIUM, SERUM 7.7 mg/dL (8.5-10.1); CARBON DIOXIDE 31 mmol/L (21-32); CHLORIDE 102 mmol/L (98-107); GLUCOSE 250 mg/dL (74-106); MAGNESIUM 1.9 mg/dL (1.8-2.4); PHOSPHORUS 2.2 mg/dL (2.5-4.9); POTASSIUM 3.9 mmol/L (3.5-5.1); SODIUM SERUM 139 mmol/L (136-145); TOTAL PROTEIN, SERUM 6.1 g/dL (6.4-8.2); UREA NITROGEN, BLOOD 22 mg/dL (7-18)
[2017-09-10] MEDS: IV NS 0.9% 1,000 ML IV PRN ×2 (05:07→17:09)
[2017-09-10] MEDS: PIPERACILLIN /TAZOBACTAM 3.375 G in IV D5W 50 ML IV SCH ×4 (05:07→23:46)
[2017-09-10 05:17] LABS: CREATINE KINASE MB 4.3 ng/mL (0-3.6)
[2017-09-10] MEDS: BLOOD SUGAR DIAGNOSTIC 1 EACH STRIP VI SCH ×4 (08:06→21:45)
[2017-09-10] MEDS: methylPREDNISolone SOD SUCC 125 MG/2ML VIAL IV SCH ×3 (08:06→16:58)
[2017-09-10] MEDS: ASPIRIN 81 MG TAB.CHEW PO SCH (08:07)
[2017-09-10] MEDS: DOCUSATE SODIUM 100 MG CAPSULE PO SCH (08:07)
[2017-09-10] MEDS: FERROUS SULFATE (325 MG) 325 MG/TAB TABLET PO SCH (08:07)
[2017-09-10] MEDS: PROSOURCE / PROSTAT (PYXIS) 30 ML UDC PO SCH (08:08)
[2017-09-10] MEDS: GABAPENTIN 100 MG CAPSULE PO SCH ×2 (08:08→21:27)
[2017-09-10] MEDS: OLANZAPINE 5 MG TABLET PO SCH ×2 (08:08→21:30)
[2017-09-10] MEDS: LISINOPRIL (10MG) 10 MG TABLET PO SCH (09:00)
[2017-09-10] MEDS ORDERED: Sodium Phosphate 7.5 MMOL in IV D5W 100 ML IV ONE (09:00)
[2017-09-10 09:26] LABS: ABG BASE EXCESS 4.6 mmol/L; ABG OXYGEN SATURATION 94.8 % (92.0-98.5); ABG PCO2 27.9 mmHg (35.0-45.0); ABG PH 7.588 (7.350-7.450); ABG PO2 73.2 mmHg (75.0-100.0); AaDO2 179.9 mmHg; COHb 0.5 % (0.5-1.5); MetHb 0.4 % (0.0-1.5); O2Hb 93.9 % (94.0-97.0); PEEP,BG 5 cm H2O; SITE, ABG Right Radial; VT, ABG 450 mL
[2017-09-10] MEDS: VALPROIC ACID 250 MG/5 ML UDC GT SCH ×2 (09:49→21:27)
[2017-09-10] MEDS: LEVETIRACETAM SOL (5 ML) 100 MG/ML UDC PO SCH ×2 (11:55→21:27)
[2017-09-10] MEDS: METHIMAZOLE (5MG) 5 MG TABLET PO SCH (14:23)
[2017-09-10] MEDS ORDERED: K PHOS NEUTRAL 250 MG TABLET PO ONE (15:35)
[2017-09-10] MEDS ORDERED: ACETAMINOPHEN 650 MG/20.3 ML UDC PO PRN (16:00)
[2017-09-10] MEDS ORDERED: K PHOS NEUTRAL 250 MG TABLET PO SCH (17:00)
[2017-09-10] MEDS ORDERED: LACTOBACILLUS RHAMNOSUS GG 1 EACH CAP.SPRINK PO SCH (17:00)
[2017-09-10] MEDS: VANCOMYCIN 0.75 GM in IV D5W 250 ML IV SCH (18:09)
[2017-09-10] MEDS: MONTELUKAST SODIUM (10MG) 10 MG TABLET PO SCH (21:30)
[2017-09-10] MEDS: *INSULIN REGULAR(HUMULIN R)HUM 100 UNIT/ML VIAL SQ PRN (21:48)
[2017-09-11] VITALS (41 sets, daily range): BP systolic 135–183; BP diastolic 52–78
[2017-09-11] MEDS: IPRATROPIUM NEB FS 0.5 MG/2.5 ML AMPUL.NEB IH SCH ×6 (03:15→23:35)
[2017-09-11] MEDS: ALBUTEROL HALF STRENGTH 1.25 MG/3 ML VIAL.NEB IH SCH ×6 (03:15→23:35)
[2017-09-11] MEDS: IV NS 0.9% 1,000 ML IV PRN ×2 (04:10→16:31)
[2017-09-11 05:04] LABS: CALCIUM, SERUM 7.1 mg/dL (8.5-10.1); CARBON DIOXIDE 32 mmol/L (21-32); CHLORIDE 106 mmol/L (98-107); CREATININE 1.1 mg/dL (0.6-1.3); GLUCOSE 214 mg/dL (74-106); PHOSPHORUS 3.5 mg/dL (2.5-4.9); POTASSIUM 3.5 mmol/L (3.5-5.1); SODIUM SERUM 143 mmol/L (136-145); UREA NITROGEN, BLOOD 26 mg/dL (7-18)
[2017-09-11] MEDS: PIPERACILLIN /TAZOBACTAM 3.375 G in IV D5W 50 ML IV SCH ×4 (05:23→23:42)
[2017-09-11 05:25] LABS: CREATINE KINASE MB 1.6 ng/mL (0-3.6)
[2017-09-11] MEDS ORDERED: Z GUARD REMEDY 4 OZ OINT TP PRN (07:00)
[2017-09-11] MEDS: BLOOD SUGAR DIAGNOSTIC 1 EACH STRIP VI SCH ×3 (07:37→16:31)
[2017-09-11] MEDS ORDERED: PHARMACY TO CHANGE PO MEDS TO GT/NG XX PRN (09:00)
[2017-09-11] MEDS ORDERED: ACETAMINOPHEN 650 MG/20.3 ML UDC GT PRN (09:30)
[2017-09-11] MEDS: VALPROIC ACID 250 MG/5 ML UDC GT SCH ×2 (09:45→21:28)
[2017-09-11] MEDS: PANTOPRAZOLE 40 MG VIAL IV SCH (09:45)
[2017-09-11] MEDS: METHIMAZOLE (5MG) 5 MG TABLET GT SCH (09:45)
[2017-09-11] MEDS: PROSOURCE / PROSTAT (PYXIS) 30 ML UDC GT SCH (09:45)
[2017-09-11] MEDS: methylPREDNISolone SOD SUCC 125 MG/2ML VIAL IV SCH ×3 (09:45→16:31)
[2017-09-11] MEDS: OLANZAPINE 5 MG TABLET GT SCH ×2 (09:51→21:29)
[2017-09-11] MEDS: DOCUSATE SODIUM LIQ 100 MG/10 ML UDC GT SCH (09:51)
[2017-09-11] MEDS: FERROUS SULFATE UDC 300 MG/5 ML UDC GT SCH (09:51)
[2017-09-11] MEDS: GABAPENTIN 100 MG CAPSULE GT SCH ×2 (09:52→21:31)
[2017-09-11] MEDS: LISINOPRIL (10MG) 10 MG TABLET GT SCH (09:52)
[2017-09-11] MEDS: ASPIRIN 81 MG TAB.CHEW GT SCH (09:52)
[2017-09-11] MEDS: LEVETIRACETAM SOL (5 ML) 100 MG/ML UDC GT SCH ×2 (09:52→21:28)
[2017-09-11 10:08] LABS: EOSINOPHILS % (AUTO) 0.4 % (0.0-6.0); HEMATOCRIT 28 % (33-45); HEMOGLOBIN 8.2 g/dL (11.5-14.8); LYMPHOCYTES # (AUTO) 1.1 /CMM (0.8-4.8); LYMPHOCYTES % (AUTO) 13.6 % (20.0-44.0); MEAN CORPUSCULAR HEMOGLOBIN 20 PG (26.0-33.0); MEAN CORPUSCULAR HGB CONC 30 g/dl (31.0-36.0); MEAN CORPUSCULAR VOLUME 67 fL (82-100); MONOCYTES # (AUTO) 0.7 /CMM (0.1-1.30); MONOCYTES % (AUTO) 9.5 % (2.0-12.0); NEUTROPHILS # (AUTO) 5.9 /CMM (1.8-8.9); NEUTROPHILS % (AUTO) 76.5 % (43.0-81.0); PLATELET COUNT (AUTO) 198 /CMM (150-450); RDW COEFFICIENT OF VARIATION 18.8 (11.5-15.0); RED BLOOD CELL COUNT(AUTO) 4.11 MIL/uL (4.0-5.2); WHITE BLOOD COUNT (AUTO) 7.8 K/uL (4.3-11.0)
[2017-09-11] MEDS: CLONIDINE HCL 0.1 MG TABLET GT PRN ×2 (10:41→22:06)
[2017-09-11 11:11] LABS: ABG BASE EXCESS 2.8 mmol/L; ABG PCO2 41.1 mmHg (35.0-45.0); ABG PH 7.439 (7.350-7.450); ABG PO2 78.7 mmHg (75.0-100.0); AaDO2 159.2 mmHg; COHb 0.8 % (0.5-1.5); MetHb 0.5 % (0.0-1.5); O2Hb 93.8 % (94.0-97.0); SITE, ABG Right Radial
[2017-09-11 11:50] LABS: LYMPHOCYTES % (MANUAL) 10 % (16-48); MONOCYTES % (MANUAL) 4 % (0-11.0); NEUTROPHILS % (MANUAL) 86 (42-76)
[2017-09-11] MEDS: VANCOMYCIN 0.75 GM in IV D5W 250 ML IV SCH (12:05)
[2017-09-11] MEDS: LACTOBACILLUS RHAMNOSUS GG 1 EACH CAP.SPRINK GT SCH (16:31)
[2017-09-11] MEDS: BLOOD SUGAR DIAGNOSTIC 1 EACH STRIP IN SCH ×2 (17:12→23:31)
[2017-09-11] MEDS: INSULIN REGULAR, HUMAN 100 UNIT/ML 3 ML VIAL SQ PRN ×2 (17:21→23:41)
[2017-09-11] MEDS ORDERED: DEXTROSE 50%-WATER 50 ML DISP.SYRIN IV PRN (17:30)
[2017-09-11] MEDS: MONTELUKAST SODIUM (10MG) 10 MG TABLET GT SCH (21:28)
[2017-09-12] VITALS (47 sets, daily range): BP systolic 103–186; BP diastolic 44–93
[2017-09-12] MEDS: IV NS 0.9% 1,000 ML IV PRN ×2 (02:46→15:50)
[2017-09-12] MEDS: hydrALAZINE HCL IV 20 MG VIAL IV PRN ×2 (02:47→12:30)
[2017-09-12] MEDS: ALBUTEROL HALF STRENGTH 1.25 MG/3 ML VIAL.NEB IH SCH ×6 (03:35→23:56)
[2017-09-12] MEDS: IPRATROPIUM NEB FS 0.5 MG/2.5 ML AMPUL.NEB IH SCH ×6 (03:36→23:56)
[2017-09-12 04:46] LABS: BASOPHILS % (AUTO) 0.1 % (0.0-2.0); EOSINOPHILS % (AUTO) 0.1 % (0.0-6.0); HEMATOCRIT 31 % (33-45); HEMOGLOBIN 9.4 g/dL (11.5-14.8); LYMPHOCYTES # (AUTO) 0.9 /CMM (0.8-4.8); LYMPHOCYTES % (AUTO) 11.7 % (20.0-44.0); MEAN CORPUSCULAR HEMOGLOBIN 21 PG (26.0-33.0); MEAN CORPUSCULAR HGB CONC 30 g/dl (31.0-36.0); MEAN CORPUSCULAR VOLUME 68 fL (82-100); MONOCYTES # (AUTO) 0.6 /CMM (0.1-1.30); NEUTROPHILS # (AUTO) 5.9 /CMM (1.8-8.9); NEUTROPHILS % (AUTO) 80.1 % (43.0-81.0); PLATELET COUNT (AUTO) 230 /CMM (150-450); RDW COEFFICIENT OF VARIATION 19.7 (11.5-15.0); WHITE BLOOD COUNT (AUTO) 7.4 K/uL (4.3-11.0)
[2017-09-12 04:56] LABS: CALCIUM, SERUM 7.3 mg/dL (8.5-10.1); CREATININE 0.8 mg/dL (0.6-1.3); GLUCOSE 179 mg/dL (74-106); MAGNESIUM 1.7 mg/dL (1.8-2.4); UREA NITROGEN, BLOOD 20 mg/dL (7-18)
[2017-09-12] MEDS: VANCOMYCIN 0.75 GM in IV D5W 250 ML IV SCH ×2 (05:01→23:02)
[2017-09-12] MEDS: PIPERACILLIN /TAZOBACTAM 3.375 G in IV D5W 50 ML IV SCH ×3 (05:01→17:46)
[2017-09-12] MEDS: BLOOD SUGAR DIAGNOSTIC 1 EACH STRIP IN SCH ×4 (05:04→23:20)
[2017-09-12 05:07] LABS: CARBON DIOXIDE 29 mmol/L (21-32); CHLORIDE 109 mmol/L (98-107); SODIUM SERUM 146 mmol/L (136-145)
[2017-09-12] MEDS: INSULIN REGULAR, HUMAN 100 UNIT/ML 3 ML VIAL SQ PRN ×4 (05:07→23:21)
[2017-09-12 05:09] LABS: POTASSIUM 2.8 mmol/L (3.5-5.1)
[2017-09-12] MEDS ORDERED: Magnesium 1GM/D5W 100ML PREMIX PIGGYBACK IV ONE (05:30)
[2017-09-12] MEDS ORDERED: POTASSIUM CL. PREMIX PERIPHER. 50 ML IV SCH (05:30)
[2017-09-12] MEDS ORDERED: POTASSIUM CHLORIDE 20 MEQ POWDER PACKET GT ONE (05:30)
[2017-09-12] MEDS: DOCUSATE SODIUM LIQ 100 MG/10 ML UDC GT SCH (08:19)
[2017-09-12] MEDS: ASPIRIN 81 MG TAB.CHEW GT SCH (08:19)
[2017-09-12] MEDS: LISINOPRIL (10MG) 10 MG TABLET GT SCH (08:19)
[2017-09-12] MEDS: LEVETIRACETAM SOL (5 ML) 100 MG/ML UDC GT SCH ×2 (08:19→21:50)
[2017-09-12] MEDS: FERROUS SULFATE UDC 300 MG/5 ML UDC GT SCH (08:19)
[2017-09-12] MEDS: LACTOBACILLUS RHAMNOSUS GG 1 EACH CAP.SPRINK GT SCH ×2 (08:20→16:04)
[2017-09-12] MEDS: OLANZAPINE 5 MG TABLET GT SCH ×2 (08:20→21:49)
[2017-09-12] MEDS: methylPREDNISolone SOD SUCC 125 MG/2ML VIAL IV SCH ×3 (08:20→16:04)
[2017-09-12] MEDS: PANTOPRAZOLE 40 MG VIAL IV SCH (08:20)
[2017-09-12] MEDS: GABAPENTIN 100 MG CAPSULE GT SCH ×2 (08:20→21:49)
[2017-09-12] MEDS: POTASSIUM CL. PREMIX PERIPHER. 50 ML IV SCH ×4 (08:22→11:58)
[2017-09-12] MEDS: PROSOURCE / PROSTAT (PYXIS) 30 ML UDC GT SCH (08:23)
[2017-09-12] MEDS: VALPROIC ACID 250 MG/5 ML UDC GT SCH ×2 (08:42→21:49)
[2017-09-12] MEDS: METHIMAZOLE (5MG) 5 MG TABLET GT SCH (09:41)
[2017-09-12] MEDS: PROPOFOL 100 ML IV PRN ×2 (14:52→21:58)
[2017-09-12] MEDS: MONTELUKAST SODIUM (10MG) 10 MG TABLET GT SCH (21:49)
[2017-09-13] VITALS (35 sets, daily range): BP systolic 83–180; BP diastolic 43–109
[2017-09-13] MEDS: PIPERACILLIN /TAZOBACTAM 3.375 G in IV D5W 50 ML IV SCH ×3 (00:22→11:13)
[2017-09-13] MEDS: IV NS 0.9% 1,000 ML IV PRN (00:22)
[2017-09-13] MEDS: IPRATROPIUM NEB FS 0.5 MG/2.5 ML AMPUL.NEB IH SCH ×3 (04:36→11:30)
[2017-09-13] MEDS: ALBUTEROL HALF STRENGTH 1.25 MG/3 ML VIAL.NEB IH SCH ×3 (04:36→11:30)
[2017-09-13 05:28] LABS: HEMATOCRIT 31 % (33-45); HEMOGLOBIN 9.5 g/dL (11.5-14.8); MEAN CORPUSCULAR HEMOGLOBIN 21 PG (26.0-33.0); MEAN CORPUSCULAR HGB CONC 30 g/dl (31.0-36.0); MEAN CORPUSCULAR VOLUME 68 fL (82-100); PLATELET COUNT (AUTO) 237 /CMM (150-450); RED BLOOD CELL COUNT(AUTO) 4.65 MIL/uL (4.0-5.2)
[2017-09-13 05:45] LABS: CALCIUM, SERUM 7.5 mg/dL (8.5-10.1); CARBON DIOXIDE 27 mmol/L (21-32); CHLORIDE 111 mmol/L (98-107); CREATININE 0.8 mg/dL (0.6-1.3); GLUCOSE 181 mg/dL (74-106); POTASSIUM 3.4 mmol/L (3.5-5.1); SODIUM SERUM 147 mmol/L (136-145); UREA NITROGEN, BLOOD 21 mg/dL (7-18)
[2017-09-13] MEDS: BLOOD SUGAR DIAGNOSTIC 1 EACH STRIP IN SCH ×2 (06:25→11:13)
[2017-09-13] MEDS: INSULIN REGULAR, HUMAN 100 UNIT/ML 3 ML VIAL SQ PRN (06:29)
[2017-09-13 08:45] LABS: LYMPHOCYTES % (MANUAL) 12 % (16-48); MONOCYTES % (MANUAL) 4 % (0-11.0); NEUTROPHILS % (MANUAL) 84 (42-76)
[2017-09-13] MEDS: PROPOFOL 100 ML IV PRN (08:50)
[2017-09-13] MEDS: POTASSIUM CL. PREMIX PERIPHER. 50 ML IV SCH ×4 (08:51→11:47)
[2017-09-13] MEDS ORDERED: DC PROPOFOL WHEN EXTUBATED XX PRN (09:00)
[2017-09-13] MEDS: PANTOPRAZOLE 40 MG VIAL IV SCH (10:04)
[2017-09-13] MEDS: VALPROIC ACID 250 MG/5 ML UDC GT SCH (10:04)
[2017-09-13] MEDS: DOCUSATE SODIUM LIQ 100 MG/10 ML UDC GT SCH (10:04)
[2017-09-13] MEDS: PROSOURCE / PROSTAT (PYXIS) 30 ML UDC GT SCH (10:04)
[2017-09-13] MEDS: LACTOBACILLUS RHAMNOSUS GG 1 EACH CAP.SPRINK GT SCH (10:04)
[2017-09-13] MEDS: methylPREDNISolone SOD SUCC 125 MG/2ML VIAL IV SCH ×2 (10:05→14:07)
[2017-09-13] MEDS: LISINOPRIL (10MG) 10 MG TABLET GT SCH (10:06)
[2017-09-13] MEDS: ASPIRIN 81 MG TAB.CHEW GT SCH (10:06)
[2017-09-13] MEDS: LEVETIRACETAM SOL (5 ML) 100 MG/ML UDC GT SCH (10:07)
[2017-09-13] MEDS ORDERED: Potassium Chloride 40 MEQ in IV D5/0.45 NACL 1,000 ML IV PRN (12:20)
[2017-09-13] MEDS ORDERED: MORPHINE SULFATE INJ 2 MG/ML DISP.SYRIN IV PRN (15:00)
[2017-09-13] MEDS: LORAZEPAM INJ 2 MG/ML VIAL IVP PRN ×2 (15:54→17:03)
[2017-09-15] MEDS ORDERED: METHIMAZOLE (5MG) 5 MG TABLET GT SCH (09:00)
== END 2017-09-14 15:16 | disposition expired | DRG 870 ==
LOC: ER 10:32 → TELE 12:46 → ICU 23:11 → MEDSG2 09-13 18:18
PROVIDERS: ADMIT Internal Medicine; ATTEND Internal Medicine
PROC: 5A1955Z Respiratory Ventilation, Greater than 96 Consecutive Hours (ICD-10-PCS; principal; 2017-09-08)
PROC: 5A2204Z Restoration of Cardiac Rhythm, Single (ICD-10-PCS; 2017-09-08)
PROC: 05HM33Z Insertion of Infusion Device into Right Internal Jugular Vein, Percutaneous Approach (ICD-10-PCS; 2017-09-09)
PROC: B543ZZA Ultrasonography of Right Jugular Veins, Guidance (ICD-10-PCS; 2017-09-09)
DX: A41.9 Sepsis, unspecified organism (principal); J69.0 Pneumonitis due to inhalation of food and vomit; J96.21 Acute and chronic respiratory failure with hypoxia; N17.0 Acute kidney failure with tubular necrosis; I46.9 Cardiac arrest, cause unspecified; G93.1 Anoxic brain damage, not elsewhere classified; J90 Pleural effusion, not elsewhere classified; G93.40 Encephalopathy, unspecified; E44.0 Moderate protein-calorie malnutrition; N39.0 Urinary tract infection, site not specified; E87.2 Acidosis; N17.9 Acute kidney failure, unspecified; I13.0 Hypertensive heart and chronic kidney disease with heart failure and stage 1 through stage 4 chronic kidney disease, or unspecified chronic kidney disease; J44.1 Chronic obstructive pulmonary disease with (acute) exacerbation; J44.0 Chronic obstructive pulmonary disease with (acute) lower respiratory infection; J98.11 Atelectasis; D50.9 Iron deficiency anemia, unspecified; N18.9 Chronic kidney disease, unspecified; F03.90 Unspecified dementia, unspecified severity, without behavioral disturbance, psychotic disturbance, mood disturbance, and anxiety; Z87.891 Personal history of nicotine dependence; Z87.01 Personal history of pneumonia (recurrent); Z79.82 Long term (current) use of aspirin; Z51.5 Encounter for palliative care; K59.00 Constipation, unspecified; E03.9 Hypothyroidism, unspecified; E78.5 Hyperlipidemia, unspecified; E83.39 Other disorders of phosphorus metabolism; E83.42 Hypomagnesemia; F20.9 Schizophrenia, unspecified; Z79.899 Other long term (current) drug therapy; F29 Unspecified psychosis not due to a substance or known physiological condition; I70.0 Atherosclerosis of aorta; G25.3 Myoclonus; Y95 Nosocomial condition; I25.10 Atherosclerotic heart disease of native coronary artery without angina pectoris; E11.65 Type 2 diabetes mellitus with hyperglycemia; B96.20 Unspecified Escherichia coli [E. coli] as the cause of diseases classified elsewhere; E11.22 Type 2 diabetes mellitus with diabetic chronic kidney disease; J32.3 Chronic sphenoidal sinusitis; E87.6 Hypokalemia; I50.9 Heart failure, unspecified
CPT/HCPCS: 31720; 36415; 36600; 70450-TC; 71045-TC; 80048-TC; 80053-TC; 80061-TC; 80076-TC; 80202-TC; 81000-TC; 82330; 82550-TC; 82553-TC; 82803-TC; 82962-TC; 83540-TC; 83605-TC; 83735-TC; 84100-TC; 84439-TC; 84443-TC; 84484-TC; 85025-TC; 85730-TC; 86850-TC; 87040-TC; 87070-TC; 87081-TC; 87086-TC; 87186-TC; 92950-TC; 93307-TC; 93970-TC; 94002-TC; 94003-TC; 95819-TC; 99082-TC; A4216; A4606; A9563; C1751; C9113; J0171; J0360; J0610; J1815; J1953; J2060; J2250; J2270; J2274; J2543; J2930; J3370; J3475; J3480; J3490; J7030; J7040; J7050; J7060; Z7610